=== PATIENT | female | born 1980 | race African-American/Black ===

== ENCOUNTER 2016-08-12 04:54 | Inpatient (IN) | payer MEDICAID ==
[2016-08-12] VITALS (12 sets, daily range): BP systolic 98–193; BP diastolic 52–81; PULSE 63–88; RESP 16–18; TEMP 97.8–98.8; O2SAT 97–100
[~2016-08-12] VITALS: Ht 160 cm; Wt 108.0 kg
[~2016-08-12 04:54] MED LIST: COUM10TA PO; LEVE250 PO; METH750T PO; PROBCAP4
[2016-08-12 05:18] LABS: MEAN CORPUSCULAR HGB CONC 29.3 % (32.0-36.0)
[2016-08-12] MEDS ORDERED: MORPHINE SULFATE 4 MG/ML INJ IV PUSH ONE (05:30)
[2016-08-12] MEDS ORDERED: KETOROLAC TROMETHAMINE 30 MG/ML (IVP) VIAL IV PUSH ONE (05:30)
[2016-08-12] MEDS ORDERED: SODIUM CHLOR 0.9% 1000 ML INJ 1,000 ML IV ONE (05:30)
[2016-08-12 05:44] LABS: AUTOMATED NEUTROPHIL # 19.5 TH/MM3 (1.8-7.7); BASOPHIL # 0.1 TH/MM3 (0-0.2); BASOPHIL % 0.7 % (0.0-2.0); EOSINOPHIL % 0.1 % (0.0-4.0); HEMATOCRIT 32.3 % (35.0-46.0); LYMPH % 2.7 % (9.0-44.0); LYMPHOCYTE # 0.6 TH/MM3 (1.0-4.8); MEAN CELL VOLUME 62.9 FL (80.0-100.0); MEAN CORPUSCULAR HEMOGLOBIN 18.4 PG (27.0-34.0); MONO % 3.5 % (0.0-8.0); PLATELET COUNT 544 TH/MM3 (150-450); RED BLOOD COUNT 5.14 MIL/MM3 (4.00-5.30); RED CELL DISTRIBUTION WIDTH 29.6 % (11.6-17.2); WHITE BLOOD COUNT 20.9 TH/MM3 (4.0-11.0)
[2016-08-12 05:48] LABS: HEMO FLAGS AUTO DIFF
[2016-08-12 05:51] LABS: BLOOD, URINE MOD (NEG); COMMENT (UR) CULT NOT INDICATED; CULTURE IF INDICATED CULT NOT INDICATED; GLUCOSE,URINE NEG (NEG); KETONE, URINE 10 mg/dL (NEG); MUCUS URINE FEW /lpf (OCC); NITRITE,URINE NEG (NEG); SQUAMOUS EPITHELIAL CELL URINE <1 /hpf (0-5); URINE COLOR YELLOW (YELLW/STRAW)
[2016-08-12 06:03] LABS: APTT (PATIENT) 57.6 SEC (24.3-30.1); INTERNATIONAL NORMALIZED RATIO 4.1 RATIO; PROTHROMBIN TIME - PATIENT 47.8 SEC (9.8-11.6)
[2016-08-12] MEDS ORDERED: IOHEXOL 300 MG/ML 50 ML BTL (for RAD DIAG) IV ONE (06:08)
[2016-08-12 06:14] LABS: BANDS 1 % (0-6); BASOPHILS 1 % (0-2); NEUTROPHIL # MANUAL DIFF 18.4 TH/MM3 (1.8-7.7); POLYS (SEG NEUTROPHILS) 87 % (16-70); SCAN/DIFF FINAL DIFF MANUAL; WBC DIFF SAMPLE 100
[2016-08-12 06:16] LABS: PLATELET ESTIMATE SMEAR HIGH (NORMAL); PLATELET MORPHOLOGY NORMAL (NORMAL)
--- NOTE | 2016-08-12 06:16 | PD ---
HPI Chief Complaint: Abdominal Pain Time Seen by Provider: 05:08 Travel History International Travel<30 days: No Contact w/Intl Traveler<30days: No Traveled to known affect area: No History of Present Illness HPI Patient is a 36-year-old female who comes in complaining of severe abdominal pain. She says she has been having cramps for the past 2 days in the car currently keeping her from sleep. She says she had a D and C performed early June, and since then she has had episodes of cramping, however this is the worst pain she has had. She reports nausea as well as vomiting. She denies fever or chills. She says she is having normal bowel movements. She denies any dysuria. She says the pain is all over her abdomen. She is currently starting her menstrual period. PFSH Past Medical History Hx Anticoagulant Therapy: Yes Anemia: Yes Blood Disorders: No Anxiety: Yes Depression: Yes Cancer: No Cardiovascular Problems: Yes Cerebrovascular Accident: Yes Diminished Hearing: No Endocrine: No Genitourinary: No Immune Disorder: No Musculoskeletal: No Neurologic: Yes (hx of stroke ) Psychiatric: Yes Reproductive: Yes (ABNORMAL INTRAUTERINE BLEEDING) Respiratory: No Immunizations Current: No Seizures: Yes ?: Not LMP: now : 1 Para: 1 Past Surgical History Section: Yes Gynecologic Surgery: Yes (d & c) Social History Alcohol Use: Yes Tobacco Use: Yes (1 ppd) Substance Use: Yes (MARIJUANA) Allergies-Medications (Allergen,Severity, Reaction): Coded Allergies: No Known Allergies (Unverified , 08/05/16) Reported Meds & Prescriptions Reported Meds & Active Scripts Active Reported Coumadin (Warfarin) 10 Mg Tab 10 Mg PO DAILY Methocarbamol 750 Mg Tab 750 Mg PO HS PRN Keppra (Levetiracetam) 250 Mg Tab 250 Mg PO TID Review of Systems Except as stated in HPI: all other systems reviewed are Neg General / Constitutional: No: Fever, Chills HENT: No: Headaches, Lightheadedness Cardiovascular: No: Chest Pain or Discomfort Respiratory: No: Shortness of Breath Gastrointestinal: Positive: Nausea, Vomiting, Abdominal Pain Genitourinary: Positive: Vaginal Bleeding, No: Dysuria, Flank Pain Musculoskeletal: No: Edema Skin: No Rash, No Change in Pigmentation Neurologic: No: Weakness, Dizziness Physical Exam Narrative GENERAL: Awake and alert in mild distress due to pain. SKIN: Warm and dry. HEAD: Atraumatic. Normocephalic. EYES: Pupils equal and round. No scleral icterus. ENT: Mucous membranes pink and moist. NECK: Trachea midline. No JVD. CARDIOVASCULAR: Regular rate and rhythm. No murmur appreciated. RESPIRATORY: No accessory muscle use. Clear to auscultation. Breath sounds equal bilaterally. GASTROINTESTINAL: Abdomen soft, nondistended. Tender to palpation of the upper abdomen. No rebound or guarding. MUSCULOSKELETAL: No obvious deformities. No clubbing. No cyanosis. No edema. NEUROLOGICAL: Awake and alert. No obvious cranial nerve deficits. Motor grossly within normal limits. Normal speech. PSYCHIATRIC: Appropriate mood and affect; insight and judgment normal. Data Data Last Documented VS Vital Signs Date Time Temp Pulse Resp B/P Pulse Ox O2 Delivery O2 Flow Rate FiO2 08/12/16 05:03 66 18 180/81 97 08/12/16 04:56 98.2 Room Air Orders Complete Blood Count With Diff (08/12/16 05:16) Comprehensive Metabolic Panel (08/12/16 05:16) Lipase (08/12/16 05:16) Urinalysis - C+S If Indicated (08/12/16 05:16) Ed Urine Pregnancytest Poc (08/12/16 05:16) Sodium Chlor 0.9% 1000 Ml Inj (Ns 1000 M (08/12/16 05:30) Ketorolac Inj (Toradol Inj) (08/12/16 05:30) Morphine Inj (Morphine Inj) (08/12/16 05:30) Ct Abd/Pel W Iv Contrast(Rout) (08/12/16 ) Act Partial Throm Time (Ptt) (08/12/16 05:27) Prothrombin Time / Inr (Pt) (08/12/16 05:27) Iohexol 300 Inj (Omnipaque 300 Inj) (08/12/16 06:08) Labs Laboratory Tests Test 08/12/16 08/12/16 05:15 05:25 White Blood Count 20.9 TH/MM3 Red Blood Count 5.14 MIL/MM3 Hemoglobin 9.5 GM/DL Hematocrit 32.3 % Mean Corpuscular Volume 62.9 FL Mean Corpuscular Hemoglobin 18.4 PG Mean Corpuscular Hemoglobin 29.3 % Concent Red Cell Distribution Width 29.6 % Platelet Count 544 TH/MM3 Mean Platelet Volume 8.8 FL Neutrophils (%) (Auto) 93.0 % Lymphocytes (%) (Auto) 2.7 % Monocytes (%) (Auto) 3.5 % Eosinophils (%) (Auto) 0.1 % Basophils (%) (Auto) 0.7 % Neutrophils # (Auto) 19.5 TH/MM3 Lymphocytes # (Auto) 0.6 TH/MM3 Monocytes # (Auto) 0.7 TH/MM3 Eosinophils # (Auto) 0.0 TH/MM3 Basophils # (Auto) 0.1 TH/MM3 CBC Comment AUTO DIFF Differential Total Cells 100 Counted Neutrophils % (Manual) 87 % Band Neutrophils % 1 % Lymphocytes % 6 % Monocytes % 5 % Basophils % 1 % Neutrophils # (Manual) 18.4 TH/MM3 Differential Comment FINAL DIFF MANUAL Platelet Estimate HIGH Platelet Morphology Comment NORMAL Spherocytes 1+ Ovalocytes 1+ Acanthocytes OCC Prothrombin Time 47.8 SEC Prothromb Time International 4.1 RATIO Ratio Activated Partial 57.6 SEC Thromboplast Time Sodium Level 139 MEQ/L Potassium Level 3.3 MEQ/L Chloride Level 104 MEQ/L Carbon Dioxide Level 22.6 MEQ/L Anion Gap 12 MEQ/L Blood Urea Nitrogen 6 MG/DL Creatinine 0.68 MG/DL Estimat Glomerular Filtration 117 ML/MIN Rate Random Glucose 109 MG/DL Calcium Level 9.3 MG/DL Total Bilirubin 0.4 MG/DL Aspartate Amino Transf 31 U/L (AST/SGOT) Alanine Aminotransferase 21 U/L (ALT/SGPT) Alkaline Phosphatase 82 U/L Total Protein 8.5 GM/DL Albumin 3.5 GM/DL Lipase 143 U/L Urine Color YELLOW Urine Turbidity CLEAR Urine pH 6.0 Urine Specific [place] 1.016 Urine Protein 30 mg/dL Urine Glucose (UA) NEG mg/dL Urine Ketones 10 mg/dL Urine Occult Blood MOD Urine Nitrite NEG Urine Bilirubin NEG Urine Urobilinogen LESS THAN 2.0 MG/DL Urine Leukocyte Esterase NEG Urine RBC 29 /hpf Urine WBC 3 /hpf Urine Squamous Epithelial <1 /hpf Cells Urine Mucus FEW /lpf Microscopic Urinalysis Comment CULT NOT INDICATED MDM Medical Decision Making Medical Screen Exam Complete: Yes Emergency Medical Condition: Yes Medical Record Reviewed: Yes Interpretation(s) ECG performed shows sinus rhythm at 60, no ST elevation or depression. Normal intervals. Differential Diagnosis Gastritis versus cholecystitis versus cholelithiasis versus uterine cramps versus fibroids Narrative Course Patient is a 36-year-old female comes in complaining of abdominal pain with nausea and vomiting. Exam shows tenderness especially to the upper part of the abdomen. IV established, labs sent. Patient has a white count of 20.9. INR is 4.1. Patient is on Coumadin for CVA. Patient given IV fluids, Toradol, morphine. CT of the abdomen and pelvis performed shows large pelvic mass with compression of the right ureter. There is right hydronephrosis present. There is also a retroperitoneal adenopathy present. Patient is feeling better, but continues to have some pain. With compression of the ureter causing hydronephrosis, I believe patient would benefit from inpatient admission. Patient admitted for further management. Diagnosis Primary Impression: Pelvic mass Additional Impression: Hydroureter Admitting Information Admitting Physician Requests: Admit Maria Esther Hernandez MD Aug 12, 2016 06:16
[2016-08-12 06:17] LABS: SPHEROCYTES 1+ (NORMAL)
[2016-08-12 06:18] LABS: ACANTHOCYTES OCC (NORMAL); OVALOCYTES 1+ (NORMAL)
[2016-08-12 06:19] LABS: ALKALINE PHOSPHATASE 82 U/L (45-117); ALT (GPT) 21 U/L (10-53); AST (GOT) 31 U/L (15-37); BLOOD UREA NITROGEN 6 MG/DL (7-18); GLOMERULAR FILTRATION RATE 117 ML/MIN (>89)
[2016-08-12 06:20] LABS: ANION GAP 12 MEQ/L (5-15); BICARBONATE 22.6 MEQ/L (21.0-32.0); CHLORIDE 104 MEQ/L (98-107); POTASSIUM 3.3 MEQ/L (3.5-5.1); SODIUM (NA) 139 MEQ/L (136-145); TOTAL BILIRUBIN ADULT 0.4 MG/DL (0.2-1.0)
--- NOTE | 2016-08-12 06:32 | RADRPT ---
EXAM DATE/TIME: 08/12/2016 05:51 [facility] COMPARISON: US PELVIS - COMPLETE (PEDIATRIC ANESTHESIOLOGIST,NON-PREG), July 10, 2015, 11:13. INDICATIONS : Abdomen and back pain since yesterday. IV CONTRAST: 95 cc Omnipaque 300 (iohexol) IV ORAL CONTRAST: No oral contrast ingested. RADIATION DOSE: 13.93 CTDIvol (mGy) MEDICAL HISTORY : Fibroids SURGICAL HISTORY : section. Endometrial ablation ENCOUNTER: Initial ACUITY: 1 day PAIN SCALE: 9/10 LOCATION: abdomen and back TECHNIQUE: Volumetric scanning of the abdomen and pelvis was performed. Using automated exposure control and ad justment of the mA and/or kV according to patient size, radiation dose was kept as low as reasonably achievable to obtain optimal diagnostic quality images. FINDINGS: LOWER LUNGS: The visualized lower lungs are clear. LIVER: Homogeneous density without lesion. There is no dilation of the biliary tree. No calcified gallston es. SPLEEN: Normal size without lesion. PANCREAS: Within normal limits. KIDNEYS: Normal in size and shape. There is mild right hydronephrosis with marked dilatation of the extrarenal collecting system. ADRENAL GLANDS: Within normal limits. VASCULAR: There is no aortic aneurysm. BOWEL/MESENTERY: The stomach, small bowel, and colon demonstrate no acute abnormality. There is no free intraperitone al air or fluid. ABDOMINAL WALL: Within normal limits. RETROPERITONEUM: Visible 7.1 x 4.4 cm mass along the right psoas muscle most consistent with retroperitoneal adenopath y is contiguous with the larger pelvic mass. BLADDER: No wall thickening or mass. REPRODUCTIVE: There is a large complex solid mass in the pelvis measuring up to 14.5 cm in greatest AP diameter by 21.9 cm in transverse diameter by 19 cm and is caudal cranial dimension. There are large ill-defined hypoechoic areas in her her several calcifications. Conclusion ringlike partial calcification on left lower portion of the mass. INGUINAL: There is no lymphadenopathy or hernia. MUSCULOSKELETAL: Within normal limits for patient age. CONCLUSION: 1. Large pelvic mass filling the majority of the pelvis and extending into the lower abdomen. Differe ntial diagnosis includes uterine tumors and possible ovarian masses. 2. Right retroperitoneal adenopathy. 3. Moderate right hydronephrosis. Jay Euceda MD on August 12, 2016 at 6:25 Board Certified Radiologist. This report was verified electronically.
[2016-08-12] MEDS ORDERED: MAGNESIUM HYDROXIDE SUSP 30 ML CUP PO PRN (07:30)
[2016-08-12] MEDS ORDERED: PROCHLORPERAZINE 25 MG SUPP PR PRN (07:30)
[2016-08-12] MEDS ORDERED: TEMAZEPAM 15 MG CAP PO PRN (07:30)
[2016-08-12] MEDS ORDERED: SENNOSIDES 8.6 MG TAB PO PRN (07:30)
[2016-08-12] MEDS ORDERED: ONDANSETRON HCL 4 MG/2 ML VIAL IVP PRN (07:30)
[2016-08-12] MEDS ORDERED: SODIUM CHLORIDE 0.9% FLUSH 5 ML FLUSH FLUSH PRN (07:30)
[2016-08-12] MEDS ORDERED: BISACODYL 10 MG SUPP PR PRN (07:30)
[2016-08-12] MEDS ORDERED: ACETAMINOPHEN 325 MG TAB PO PRN (07:30)
--- NOTE | 2016-08-12 07:32 | EKG ---
Date Performed: 08/12/2016 Time Performed: 05:07:11 PTAGE: 36 years EKG: Sinus rhythm NORMAL ECG PREVIOUS TRACING : 06/11/2016 12.53 No significant change from previous tracing noted. DOCTOR: Stephane Chew Interpretating Date/Time 08/12/2016 07:31:36
--- NOTE | 2016-08-12 07:35 | HHI.HP ---
[facility] oNva Guerra MD Admission Diagnosis hydronephrosis secondary to large pelvic mass Diagnoses: Chief Complaint: vaginal bleeding Travel History International Travel<30 Days: No Contact w/Intl Traveler <30 Da: No Traveled to Known Affected Are: No History of Present Illness Patient is a 36-year-old female with h/o CVA x2, seizures, Dysfunctional vaginal bleeding, anemia, who came to the ED complaining of severe abdominal pain. She says she has been having cramps for the past 2 days, currently keeping her from sleep. She says she had a D and C performed early June, and since then she has had episodes of cramping, however this is the worst pain she has had. She also has vaginal bleeding and change pads 6 times per day. Says she doesn't have abundant bleeding however. She reports nausea as well as vomiting. She denies fever or chills. She says she is having normal bowel movements. She denies any dysuria. She says the pain is all over her abdomen. She is currently starting her menstrual period. She does follow with directory compiler specialist as OP. She denies currently any nausea and vomiting. Review of Systems Endocrine: DENIES: Heat/cold intolerance Eyes: DENIES: Blurred vision, Eye pain Ears, nose, mouth, throat: DENIES: Tinnitus, Hearing loss, Vertigo, Nasal discharge, Oral lesions, Throat pain, Hoarseness, Ear Pain, Running Nose, Epistaxis, Sinus Pain, Toothache, Odynophagia Respiratory: DENIES: Apneas, Cough, Snoring, Wheezing, Hemoptysis, Sputum production, Shortness of breath Cardiovascular: DENIES: Chest pain, Palpitations, Syncope, Dyspnea on Exertion , PND, Lower Extremity Edema, Orthopnea, Claudication Gastrointestinal: COMPLAINS OF: Abdominal pain, Nausea, Vomiting, DENIES: Black stools, Bloody stools, Constipation, Diarrhea, Difficulty Swallowing, Anorexia Genitourinary: COMPLAINS OF: Abnormal vaginal bleeding, DENIES: Dysmenorrhea, Dyspareunia, Sexual dysfunction, Urinary frequency, Urinary incontinence, Urgency, Hematuria, Dysuria, Nocturia, Vaginal discharge Integumentary: DENIES: Rash Neurologic: DENIES: Abnormal gait, Headache, Localized weakness, Paresthesias, Seizures, Speech Problems, Tremor, Poor Balance Psychiatric: DENIES: Anxiety, Depression Past Family Social History Past Medical History Menorrhagia Seizure disorder Atrial fibrillation on Coumadin CVA Uterine fibroids Dysfunctional vaginal bleeding Anemia Past Surgical History Endometrial ablation and D&C on 06/25/16 Reported Medications Reported Meds & Active Scripts Active Reported Coumadin (Warfarin) 10 Mg Tab 10 Mg PO DAILY Methocarbamol 750 Mg Tab 750 Mg PO HS PRN Keppra (Levetiracetam) 250 Mg Tab 250 Mg PO TID Allergies: Coded Allergies: No Known Allergies (Unverified , 08/05/16) Family History Hypertension Social History Reports tobacco, marijuana, and occasional alcohol use. Physical Exam Vital Signs Vital Signs Date Time Temp Pulse Resp B/P Pulse Ox O2 Delivery O2 Flow Rate FiO2 08/12/16 07:03 63 16 131/60 99 Room Air 08/12/16 05:03 66 18 180/81 97 08/12/16 04:56 98.2 88 18 193/76 98 Room Air Physical Exam GENERAL: This is a well-nourished, well-developed patient, in no apparent distress. SKIN: No rashes, ecchymoses or lesions. Cool and dry. HEAD: Atraumatic. Normocephalic. No temporal or scalp tenderness. EYES: Pupils equal round and reactive. Extraocular motions intact. No scleral icterus. No injection or drainage. ENT: Nose without bleeding, purulent drainage or septal hematoma. Throat without erythema, tonsillar hypertrophy or exudate. Uvula midline. Airway patent. NECK: Trachea midline. No JVD or lymphadenopathy. Supple, nontender, no meningeal signs. CARDIOVASCULAR: Regular rate and rhythm without murmurs, gallops, or rubs. RESPIRATORY: Clear to auscultation. Breath sounds equal bilaterally. No wheezes , rales, or rhonchi. GASTROINTESTINAL: Abdomen soft, distended, diffuse tenderness, large mass palpable. No hepato-splenomegaly. No guarding. MUSCULOSKELETAL: Extremities without clubbing, cyanosis, or edema. No joint tenderness, effusion, or edema noted. No calf tenderness. Negative Homans sign bilaterally. NEUROLOGICAL: Awake and alert. Cranial nerves II through XII intact. Motor and sensory grossly within normal limits. Five out of 5 muscle strength in all muscle groups. Normal speech. Laboratory Laboratory Tests Test 08/12/16 08/12/16 05:15 05:25 White Blood Count 20.9 Red Blood Count 5.14 Hemoglobin 9.5 Hematocrit 32.3 Mean Corpuscular Volume 62.9 Mean Corpuscular Hemoglobin 18.4 Mean Corpuscular Hemoglobin 29.3 Concent Red Cell Distribution Width 29.6 Platelet Count 544 Mean Platelet Volume 8.8 Neutrophils (%) (Auto) 93.0 Lymphocytes (%) (Auto) 2.7 Monocytes (%) (Auto) 3.5 Eosinophils (%) (Auto) 0.1 Basophils (%) (Auto) 0.7 Neutrophils # (Auto) 19.5 Lymphocytes # (Auto) 0.6 Monocytes # (Auto) 0.7 Eosinophils # (Auto) 0.0 Basophils # (Auto) 0.1 CBC Comment AUTO DIFF Differential Total Cells 100 Counted Neutrophils % (Manual) 87 Band Neutrophils % 1 Lymphocytes % 6 Monocytes % 5 Basophils % 1 Neutrophils # (Manual) 18.4 Differential Comment FINAL DIFF MANUAL Platelet Estimate HIGH Platelet Morphology Comment NORMAL Spherocytes 1+ Ovalocytes 1+ Acanthocytes OCC Prothrombin Time 47.8 Prothromb Time International 4.1 Ratio Activated Partial 57.6 Thromboplast Time Sodium Level 139 Potassium Level 3.3 Chloride Level 104 Carbon Dioxide Level 22.6 Anion Gap 12 Blood Urea Nitrogen 6 Creatinine 0.68 Estimat Glomerular Filtration 117 Rate Random Glucose 109 Calcium Level 9.3 Total Bilirubin 0.4 Aspartate Amino Transf 31 (AST/SGOT) Alanine Aminotransferase 21 (ALT/SGPT) Alkaline Phosphatase 82 Total Protein 8.5 Albumin 3.5 Lipase 143 Urine Color YELLOW Urine Turbidity CLEAR Urine pH 6.0 Urine Specific [place] 1.016 Urine Protein 30 Urine Glucose (UA) NEG Urine Ketones 10 Urine Occult Blood MOD Urine Nitrite NEG Urine Bilirubin NEG Urine Urobilinogen LESS THAN 2.0 Urine Leukocyte Esterase NEG Urine RBC 29 Urine WBC 3 Urine Squamous Epithelial <1 Cells Urine Mucus FEW Microscopic Urinalysis Comment CULT NOT INDICATED Result Diagram: 08/12/16 0515 08/12/16 0515 Imaging Last Impressions Abdomen/Pelvis CT 08/12/16 0000 Signed Impressions: Service Date/Time: Friday, August 12, 2016 05:51 - CONCLUSION: 1. Large pelvic mass filling the majority of the pelvis and extending into the lower abdomen. Differential diagnosis includes uterine tumors and possible ovarian masses. 2. Right retroperitoneal adenopathy. 3. Moderate right hydronephrosis. Jay Euceda MD Assessment and Plan Assessment and Plan 36-year-old woman with: Abdominal pain. Nausea and vomiting. CT abd/pelvis reviewed, findings discussed with ED physician. 1. Large pelvic mass filling the majority of the pelvis and extending into the lower abdomen. Differential diagnosis includes uterine tumors and possible ovarian masses. 2. Right retroperitoneal adenopathy. 3. Moderate right hydronephrosis. Consult directory compiler and urology. Pain meds per pain scale. Start dicyclomine as need. IVF Keep NPO for now Antiemetics as need Hydronephrosis. Poss 2/2 mechanical obstruction by large pelvic mass. Urology consulted. Anemia of blood loss: monitor H&H, appears at baseline. Check iron panel. DUB/Menorrhagia/fibroids: s/p endometrial ablation and D&C on 06/25/16; Receives Depo-Provera; gynecology was consulted Atrial fibrillation: Hold Coumadin as INR is supraterapeutic at this time. Patient has history of CVA. Monitor INR/PT Supraterapeutic INR of 4.1 on admission. Hold coumadin. Hypokalemia. Check mag . Replace and monitor. Seizure disorder: Resume Keppra. DVT prophylaxis: SCDs/TEDs. Discussed Condition With ED physician, nurse, patient Marycruz Ba MD Aug 12, 2016 07:35
[2016-08-12] MEDS ORDERED: NALOXONE HCL 0.4 MG/ML AMP IV PRN (07:45)
[2016-08-12] MEDS ORDERED: HYDROmorphone HCL PF 1 MG/ML VIAL IV PRN ×2 (07:45)
[2016-08-12] MEDS ORDERED: DICYCLOMINE HCL 20 MG/2 ML VIAL IM ONE (08:00)
[2016-08-12] MEDS ORDERED: METHOCARBAMOL 500 MG TAB PO PRN (08:00)
[2016-08-12] MEDS: POTASSIUM CHLOR 20 MEQ PREMIX 100 ML IV SCH ×2 (08:42→10:21)
[2016-08-12] MEDS: SODIUM CHLOR 0.9% 1000 ML INJ 1,000 ML IV SCH ×2 (08:42→16:51)
[2016-08-12] MEDS: SODIUM CHLORIDE 0.9% FLUSH 5 ML FLUSH FLUSH SCH ×2 (09:00→21:00)
[2016-08-12] MEDS: levETIRAcetam 250 MG TAB PO SCH ×3 (09:20→21:43)
[2016-08-12 10:20] LABS: FERRITIN 17 NG/ML (8-252)
[2016-08-12 11:57] LABS: TRANSFERRIN IRON PROFILE 297 MG/DL (200-360)
--- NOTE | 2016-08-12 12:23 | PD.CONS ---
HPI Chief Complaint Pelivic Mass, abdominal pain, menorrhagia Date Seen: Aug 12, 2016 Travel History International Travel<30 Days: No Contact w/Intl Traveler<30Days: No Known Affected Area: No History of Present Illness HPI Pt is a 37 year old with history of uterine fibroids, CVA x2, seizure disorder presenting due to abdominal pain, heavy menstrual bleeding found to have a large pelvic mass on CT and supratheraputic INR of 4.1. Pt reports that she had a fibroid removed in 2002 that was substantial in size. She was told that she had another fibroid in 2010. She had two strokes in 2013 and has been on Coumadin 10 mg daily. Her INRs are monitored by Dr. Tafoya, [facility]. She had an ablation and D & C on June 28, [address] Bliss in [place]. She was seen by her [facility], Dr. Bliss, in March and reports being told that she needs to have an hysterectomy and was referred to an OBGYN in [place] for surgery. She was unable to find a doctor to perform the hysterectomy due to insurance restrictions. She has had irregular vaginal bleeding/spotting since February. She is not interested in having any more children and is interested in having her hysterectomy. Para: 1 : 1 Miscarriage: 0 : 0 History Past Medical History Narrative Medical CVA x2 Seizure disorder Patient denies history of coagulopathy or hemoglobinopathy Anemia, hemoglobin usually around 7 per pt Obstetric History Obstetric History No history of miscarriages or abortions Menarche at age 7, periods occur every 7 days and will last for 7 days No history of abnormal Pap smears, last pap smear was in 2014, normal per pt Past Surgical History Narrative Surgical 1 in 2002 Family History Narrative Family History Pt denies family history of breast cancer, uterine cancer, ovarian cancer, cervical cancer, bleeding disorder Social History Alcohol Use: Yes (2 glasses of wine weekly) Tobacco Use: Yes (5 cigarettes per day, patient currently trying to quit smoking) Substance Abuse: No (5 cigs per day, pt trying to quit smoking) Allergies-Medications (Allergen,Severity, Reaction): Coded Allergies: No Known Allergies (Unverified , 08/05/16) Home Meds Reported Medications Warfarin (Coumadin)10 Mg Tab10 Mg PO DAILY #30 TAB Ref 0 07/04/16 Methocarbamol 750 Mg [id number] Mg PO HS PRN (Muscle Spasm) #120 TAB Ref 0 07/04/16 Levetiracetam (Keppra)250 Mg [id number] Mg PO TID #60 TAB Ref 0 07/04/16 Discontinued Reported Medications Probiotic Product (Probiotic Acidophilus)1 Cap Cap 07/04/16 Review of Systems General / Constitutional: Weight Loss HENT: No: Lightheadedness Respiratory: No: Short of Breath Gastrointestinal: Abdominal Pain Genitourinary: Pelvic Pain, Menorrhagia, Vaginal Bleeding Musculoskeletal: No: Edema Neurologic: No: Dizziness Physical Exam Narrative GENERAL: Well-nourished, well-developed patient. SKIN: Warm and dry. HEAD: Normocephalic and atraumatic. EYES: No scleral icterus. No injection or drainage. ENT: No nasal drainage noted. Mucous membranes pink. Airway patent. NECK: Supple, trachea midline. No JVD. CARDIOVASCULAR: Warm and well perfused RESPIRATORY: Non labored breathing. No accessory muscle use. ABDOMEN/GI: Large abdominal mass appreciated GENITOURINARY: Bimanual exam: Unable to appreciate ovaries,significantly enlarged uterus External Genitalia: intact and normal in appearance Cervix: midposition, posterior Dilatation: fingertip Small subserosal polyp, anout 1cm x1cm of the left posterior vaginal wall EXTREMITIES: No cyanosis or edema. BACK: Nontender without obvious deformity. No CVA tenderness. NEUROLOGICAL: Awake and alert. Motor and sensory grossly within normal limits. Five out of 5 muscle strength in all muscle groups. Normal speech. Data Data Vital Signs Reviewed: Yes Orders Complete Blood Count With Diff (08/12/16 05:16) Comprehensive Metabolic Panel (08/12/16 05:16) Lipase (08/12/16 05:16) Urinalysis - C+S If Indicated (08/12/16 05:16) Ed Urine Pregnancytest Poc (08/12/16 05:16) Sodium Chlor 0.9% 1000 Ml Inj (Ns 1000 M (08/12/16 05:30) Ketorolac Inj (Toradol Inj) (08/12/16 05:30) Morphine Inj (Morphine Inj) (08/12/16 05:30) Ct Abd/Pel W Iv Contrast(Rout) (08/12/16 ) Act Partial Throm Time (Ptt) (08/12/16 05:27) Prothrombin Time / Inr (Pt) (08/12/16 05:27) Iohexol 300 Inj (Omnipaque 300 Inj) (08/12/16 06:08) Electrocardiogram (08/12/16 05:07) Admit Order (Ed Use Only) (08/12/16 ) Place In Observation (08/12/16 ) Code Status (08/12/16 07:21) Vital Signs (Adult) Q4H (08/12/16 07:21) Activity Oob With Assistance (08/12/16 07:21) ^ Twine Reeling Machine Operator / Telemetry .CONTINUOUS (08/12/16 07:21) Sodium Chlor 0.9% 1000 Ml Inj (Ns 1000 M (08/12/16 08:00) Sodium Chloride 0.9% Flush (Ns Flush) (08/12/16 07:30) Sodium Chloride 0.9% Flush (Ns Flush) (08/12/16 09:00) Acetaminophen (Tylenol) (08/12/16 07:30) Ondansetron Inj (Zofran Inj) (08/12/16 07:30) Prochlorperazine Supp (Compazine Supp) (08/12/16 07:30) Bisacodyl Supp (Dulcolax Supp) (08/12/16 07:30) Magnesium Hydroxide Liq (Milk Of Magnesi (08/12/16 07:30) Sennosides (Senokot) (08/12/16 07:30) Temazepam (Restoril) (08/12/16 07:30) Basic Metabolic Panel (Bmp) (08/13/16 06:00) Complete Blood Count With Diff (08/13/16 06:00) Resp Oxygen [place] C Titrat 1-4 L (08/12/16 ) Pt Request For Service (08/12/16 07:21) Case Management Consult (08/12/16 07:21) Scd Bilateral/Knee High DEDRA.BID (08/12/16 07:21) Bob Bilateral/Knee High DEDRA.QSHIFT (08/12/16 07:21) Consult Urology (08/12/16 ) Consult Gynecology (08/12/16 ) (Hub Use Only)Inp Phy Cons/Ref (08/12/16 ) Acetamin-Hydrocod 325-5 Mg ([place] 5-325 (08/12/16 07:45) Acetamin-Hydrocod 325-10 Mg ([place] 10-32 (08/12/16 07:45) Hydromorphone Pf Inj (Dilaudid Pf Inj) (08/12/16 07:45) Hydromorphone Pf Inj (Dilaudid Pf Inj) (08/12/16 07:45) Hydromorphone Pf Inj (Dilaudid Pf Inj) (08/12/16 07:45) Naloxone Inj (Narcan Inj) (08/12/16 07:45) Levetiracetam (Keppra) (08/12/16 08:00) Diet Npo Except Meds (08/12/16 Breakfast) Methocarbamol (Robaxin) (08/12/16 08:00) Dicyclomine Inj (Bentyl Inj) (08/12/16 08:00) Magnesium (Mg) (08/13/16 06:00) Prothrombin Time / Inr (Pt) (08/13/16 06:00) Prothrombin Time / Inr (Pt) (08/14/16 06:00) Prothrombin Time / Inr (Pt) (08/15/16 06:00) Prothrombin Time / Inr (Pt) (08/16/16 06:00) Prothrombin Time / Inr (Pt) (08/17/16 06:00) Potassium Chlor 20 Meq Premix (Kcl 20 Me (08/12/16 08:00) Iron/Tibc Profile (08/12/16 07:54) Ferritin (08/12/16 07:54) Vitamin B12 (08/12/16 07:54) Folate, Serum (08/12/16 07:54) Dicyclomine (Bentyl) (08/12/16 09:00) (Hub Use Only)Inp Phy Cons/Ref (08/12/16 ) Labs Laboratory Tests Test 08/12/16 08/12/16 05:15 05:25 White Blood Count 20.9 Red Blood Count 5.14 Hemoglobin 9.5 Hematocrit 32.3 Mean Corpuscular Volume 62.9 Mean Corpuscular Hemoglobin 18.4 Mean Corpuscular Hemoglobin 29.3 Concent Red Cell Distribution Width 29.6 Platelet Count 544 Mean Platelet Volume 8.8 Neutrophils (%) (Auto) 93.0 Lymphocytes (%) (Auto) 2.7 Monocytes (%) (Auto) 3.5 Eosinophils (%) (Auto) 0.1 Basophils (%) (Auto) 0.7 Neutrophils # (Auto) 19.5 Lymphocytes # (Auto) 0.6 Monocytes # (Auto) 0.7 Eosinophils # (Auto) 0.0 Basophils # (Auto) 0.1 CBC Comment AUTO DIFF Differential Total Cells 100 Counted Neutrophils % (Manual) 87 Band Neutrophils % 1 Lymphocytes % 6 Monocytes % 5 Basophils % 1 Neutrophils # (Manual) 18.4 Differential Comment FINAL DIFF MANUAL Platelet Estimate HIGH Platelet Morphology Comment NORMAL Spherocytes 1+ Ovalocytes 1+ Acanthocytes OCC Prothrombin Time 47.8 Prothromb Time International 4.1 Ratio Activated Partial 57.6 Thromboplast Time Sodium Level 139 Potassium Level 3.3 Chloride Level 104 Carbon Dioxide Level 22.6 Anion Gap 12 Blood Urea Nitrogen 6 Creatinine 0.68 Estimat Glomerular Filtration 117 Rate Random Glucose 109 Calcium Level 9.3 Iron Level 15 Total Iron Binding Capacity 416 Percent Iron Saturation 3.6 Ferritin 17 Total Bilirubin 0.4 Aspartate Amino Transf 31 (AST/SGOT) Alanine Aminotransferase 21 (ALT/SGPT) Alkaline Phosphatase 82 Total Protein 8.5 Albumin 3.5 Lipase 143 Folate 9.1 Urine Color YELLOW Urine Turbidity CLEAR Urine pH 6.0 Urine Specific [place] 1.016 Urine Protein 30 Urine Glucose (UA) NEG Urine Ketones 10 Urine Occult Blood MOD Urine Nitrite NEG Urine Bilirubin NEG Urine Urobilinogen LESS THAN 2.0 Urine Leukocyte Esterase NEG Urine RBC 29 Urine WBC 3 Urine Squamous Epithelial <1 Cells Urine Mucus FEW Microscopic Urinalysis Comment CULT NOT INDICATED MDM Medical Record Reviewed: Yes Interpretation(s) Pt is a 37 year old with history of uterine fibroids, CVA x2, seizure disorder presenting due to abdominal pain, heavy menstrual bleeding found to have a large pelvic mass on CT and supratheraputic INR of 4.1. Plan 1) Pelvic mass/uterine leiomyoma CT of the abdomen/pelvis significant for large pelvic mass filling the majority of the pelvis and extending into the lower abdomen measuring 21 cm x 14 cm likely uterine leiomyoma. She has failed medical management to control irregular vaginal bleeding caused by fibroid with Depo-Provera as well as ablation/D&C. Pt with minimal vaginal bleeding at this time. It would be ideal for patient to have a hysterectomy. There are currently several barriers preventing pt from having a hysterectomy performed: Supratherapeutic INR, patient not medically stable for surgery, finding a DEICER TESTER surgeon who would accept patient's insurance and would also perform high risk surgery. These barriers were discussed with Dr. Ba. Case management has also been consulted to assist. CA125 within normal limits CEA 19-9 slightly elevated to 43.4, likely due to presence of large pelvic mass 2) Menorrhagia Resolving. Pt currently with minimal vaginal bleeding/spotting. Consider additional dose of Depo-Provera if bleeding resumes/worsens 3) Hydronephrosis Urology has been consulted by primary team for possible stent placement Further management by Urology 4) Anemia Hemoglobin 9.5, patient asymptomatic Continue to monitor H&H Management per primary team 5) Supratherapeutic INR On admission INR elevated to 4.1. Patient reports being on Coumadin 10 mg by mouth daily due to having CVA 2. Coumadin currently held Management per primary team 6) Seizure disorder Keppra 250 mg by mouth every 8 hours Pt seen and discussed with [facility] Hospitalist: Dr. Lewis, also sdw Dr. Matute Case discussed with Will sign off at this time. Please reconsult once pt is medically stable to evaluate pt for possible hysterectomy. Admitting diagnosis: hydronephrosis secondary to large pelvic mass Cynthia Arguelles MD R2 Aug 12, 2016 12:22
[2016-08-12] MEDS: DICYCLOMINE HCL 20 MG TAB PO PRN (14:37)
--- NOTE | 2016-08-12 15:31 | PD.CONS ---
History & Physical H&P This patient is a 37-year-old black female para 1 with known history of fibroids. She presents with abdominal pain increasing over the last 2 days. She also has irregular uterine bleeding that's fairly minimal. She has a known history of fibroid uterus and her OB GEN doctor is Dr. Bennett in [place]. This DRILLING FIELD OPERATOR doctor did a D&C earlier this year for bleeding and pain and placed the patient on Depo-Provera. Today she presents to the emergency room and evaluation shows a massive pelvic abdominal mass that basically fills the pelvis and abdomen well above the umbilicus the mass goes from sidewall to sidewall laterally and goes to approximately 10-12 cm above the umbilicus it's palpable firm hard mass. Measurement on CT scan was 22 cm in side to side width. There is hydronephrosis on the right with dilated calyces and hydroureter. While Getting factors for this patient however is that her history of 2 CVAs and is over anticoagulated now on Coumadin with an INR of 4 and obviously this can lead to irregular and heavy bleeding at times. Her doctor in [place] try to get her to [facility] to get someone to do a hysterectomy. However the clinic would not do the procedure because of her they did not take her insurance. She is being admitted to medicine now and will have a urology consultation for possible stent placement to preserve the right kidney, and yes this patient does need a hysterectomy obviously but is getting of the right surgeon to do that if her insurance is a problem or is just too medically complicated for her to have this done here. So at this point recommend that she gets her INR decreased her Coumadin therapy regulated so it's a proper amount of anticoagulation and if gynecologic surgical intervention can be scheduled with his hospitalization and that would be good , however will be investigated with the DRILLING FIELD OPERATOR doctor as well as her medical clearance for surgery Filippo Lewis II, MD Aug 12, 2016 15:31
--- NOTE | 2016-08-12 18:06 | PD.CONS ---
[facility] Service Urology Consult Requested By Dr. Ba Reason for Consult Hydronephrosis, Right. Huge Uterine fibroids. Coumadin supertherapy. Primary Care Physician Nova Guerra MD Diagnosis: (1) Hydronephrosis of right kidney ICD Code: N13.30 History of Present Illness Silent Rt. hydronephrosis caused by extrinsic compression by a huge uterine fibroid. Crocker seen on CT scan. Left kidney and ureter: WNL. No renal colic. Patient waiting for a hysterectomy. Has been seen by Dr. Lewis (Hydraulic Governor Assembler). INR: 4.1 on admission. Hx. CVAs. Cr: WNL. UA: RBC, no WBC. Past Family Social History Past Medical History EMR reviewed. Past Surgical History EMR reviewed. Allergies: Coded Allergies: No Known Allergies (Unverified , 08/05/16) Physical Exam Vital Signs Vital Signs Date Time Temp Pulse Resp B/P Pulse Ox O2 Delivery O2 Flow Rate FiO2 08/12/16 16:42 98.8 80 18 116/59 99 08/12/16 16:37 74 08/12/16 13:09 98.7 65 18 124/63 100 08/12/16 12:10 66 16 124/76 100 08/12/16 09:23 63 18 151/65 99 Room Air 08/12/16 07:03 63 16 131/60 99 Room Air 08/12/16 05:03 66 18 180/81 97 08/12/16 04:56 98.2 88 18 193/76 98 Room Air Physical Exam GENERAL: This is a well-nourished, well-developed patient, in no apparent distress. SKIN: No rashes, ecchymoses or lesions. Cool and dry. HEAD: Atraumatic. Normocephalic. No temporal or scalp tenderness. EYES: Pupils equal round and reactive. Extraocular motions intact. No scleral icterus. No injection or drainage. ENT: Nose without bleeding, purulent drainage or septal hematoma. Throat without erythema, tonsillar hypertrophy or exudate. Uvula midline. Airway patent. NECK: Trachea midline. No JVD or lymphadenopathy. Supple, nontender, no meningeal signs. CARDIOVASCULAR: Regular rate and rhythm without murmurs, gallops, or rubs. RESPIRATORY: Clear to auscultation. Breath sounds equal bilaterally. No wheezes , rales, or rhonchi. GASTROINTESTINAL: Abdomen soft, non-tender, nondistended. No hepato-splenomegaly , or palpable masses. No guarding. MUSCULOSKELETAL: Extremities without clubbing, cyanosis, or edema. No joint tenderness, effusion, or edema noted. No calf tenderness. Negative Homans sign bilaterally. NEUROLOGICAL: Awake and alert. Cranial nerves II through XII intact. Motor and sensory grossly within normal limits. Five out of 5 muscle strength in all muscle groups. Normal speech. : Abd: Large, firm mass above umbilicus. ( Hydraulic Governor Assembler PE reviewed.). Laboratory Laboratory Tests Test 08/12/16 08/12/16 08/12/16 05:15 05:25 15:30 White Blood Count 20.9 Red Blood Count 5.14 Hemoglobin 9.5 Hematocrit 32.3 Mean Corpuscular Volume 62.9 Mean Corpuscular Hemoglobin 18.4 Mean Corpuscular Hemoglobin 29.3 Concent Red Cell Distribution Width 29.6 Platelet Count 544 Mean Platelet Volume 8.8 Neutrophils (%) (Auto) 93.0 Lymphocytes (%) (Auto) 2.7 Monocytes (%) (Auto) 3.5 Eosinophils (%) (Auto) 0.1 Basophils (%) (Auto) 0.7 Neutrophils # (Auto) 19.5 Lymphocytes # (Auto) 0.6 Monocytes # (Auto) 0.7 Eosinophils # (Auto) 0.0 Basophils # (Auto) 0.1 CBC Comment AUTO DIFF Differential Total Cells 100 Counted Neutrophils % (Manual) 87 Band Neutrophils % 1 Lymphocytes % 6 Monocytes % 5 Basophils % 1 Neutrophils # (Manual) 18.4 Differential Comment FINAL DIFF MANUAL Platelet Estimate HIGH Platelet Morphology Comment NORMAL Spherocytes 1+ Ovalocytes 1+ Acanthocytes OCC Prothrombin Time 47.8 Prothromb Time International 4.1 Ratio Activated Partial 57.6 Thromboplast Time Sodium Level 139 Potassium Level 3.3 Chloride Level 104 Carbon Dioxide Level 22.6 Anion Gap 12 Blood Urea Nitrogen 6 Creatinine 0.68 Estimat Glomerular Filtration 117 Rate Random Glucose 109 Calcium Level 9.3 Iron Level 15 Total Iron Binding Capacity 416 Percent Iron Saturation 3.6 Ferritin 17 Total Bilirubin 0.4 Aspartate Amino Transf 31 (AST/SGOT) Alanine Aminotransferase 21 (ALT/SGPT) Alkaline Phosphatase 82 Total Protein 8.5 Albumin 3.5 Lipase 143 Folate 9.1 Urine Color YELLOW Urine Turbidity CLEAR Urine pH 6.0 Urine Specific [place] 1.016 Urine Protein 30 Urine Glucose (UA) NEG Urine Ketones 10 Urine Occult Blood MOD Urine Nitrite NEG Urine Bilirubin NEG Urine Urobilinogen LESS THAN 2.0 Urine Leukocyte Esterase NEG Urine RBC 29 Urine WBC 3 Urine Squamous Epithelial <1 Cells Urine Mucus FEW Microscopic Urinalysis Comment CULT NOT INDICATED CA 19-9 Antigen 43.4 CA 125 Antigen 8.4 Result Diagram: 08/12/1651408/12/[address] scan images reviewed. See HPI. Assessment and Plan Problem List: (1) Hydronephrosis of right kidney ICD Code: N13.30 Status: Chronic Assessment and Plan: Hydronephrosis is chronic, painless. Total kidney function: WNL. No sign of UTI. Coumadin supertherapy. Assessment and Plan REC: Whether to place a urinary stent during this hospital stay or at a later date will depend on when patient is to have her hysterectomy. If hysterectomy can be done in next 2-3 weeks, then stent placement can be delayed. However, if hysterectomy will be later than one month, then stent placement should be considered. Discussed Condition With Patient, nurse. Tariq Flores MD Aug 12, 2016 18:06
[2016-08-12] MEDS: ACETAMINOPHEN/HYDROcodone 325 MG/5 MG TAB PO PRN (19:39)
[2016-08-12 21:01] LABS: MEAN CORPUSCULAR HGB CONC 28.6 % (32.0-36.0)
[2016-08-13] MEDS: DICYCLOMINE HCL 20 MG TAB PO PRN (02:37)
[2016-08-13] MEDS: SODIUM CHLOR 0.9% 1000 ML INJ 1,000 ML IV SCH ×2 (02:38→14:08)
[2016-08-13 04:27] VITALS: BP 113/60; PULSE 74; RESP 18; TEMP 98; O2SAT 100
[2016-08-13] MEDS: levETIRAcetam 250 MG TAB PO SCH ×3 (06:04→22:17)
[2016-08-13 06:58] LABS: INTERNATIONAL NORMALIZED RATIO 3.2 RATIO
[2016-08-13 07:08] LABS: AUTOMATED NEUTROPHIL # 9.4 TH/MM3 (1.8-7.7); BASOPHIL # 0.1 TH/MM3 (0-0.2); BASOPHIL % 0.5 % (0.0-2.0); EOSINOPHIL # 0.1 TH/MM3 (0-0.4); HEMATOCRIT 27.5 % (35.0-46.0); LYMPH % 10.9 % (9.0-44.0); LYMPHOCYTE # 1.3 TH/MM3 (1.0-4.8); MEAN CELL VOLUME 62.8 FL (80.0-100.0); MONO % 6.9 % (0.0-8.0); NEUT % 80.7 % (16.0-70.0); PLATELET COUNT 436 TH/MM3 (150-450); RED BLOOD COUNT 4.38 MIL/MM3 (4.00-5.30); RED CELL DISTRIBUTION WIDTH 29.3 % (11.6-17.2); WHITE BLOOD COUNT 11.7 TH/MM3 (4.0-11.0)
[2016-08-13 07:17] LABS: MAGNESIUM 1.9 MG/DL (1.5-2.5); POTASSIUM 3.4 MEQ/L (3.5-5.1)
[2016-08-13 07:35] LABS: HEMO FLAGS AUTO DIFF
--- NOTE | 2016-08-13 07:46 | HHI.PR ---
Subjective Remarks Says she has more vaginal bleeding since yesterday. Has abdominal pain, controlled by meds. 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 No n/v/d/c. INR trending down. Objective Vitals Vital Signs Date Time Temp Pulse Resp B/P Pulse Ox O2 Delivery O2 Flow Rate FiO2 08/13/16 04:27 98.0 74 18 113/60 100 08/12/16 23:49 97.8 74 18 98/55 97 08/12/16 20:19 16 08/12/16 20:14 98.7 87 18 114/52 100 08/12/16 20:10 85 08/12/16 16:42 98.8 80 18 116/59 99 08/12/16 16:37 74 08/12/16 13:09 98.7 65 18 124/63 100 08/12/16 12:10 66 16 124/76 100 08/12/16 10:30 99 21 08/12/16 09:23 63 18 151/65 99 Room Air Result Diagram: 08/13/16 0554 08/13/16 0554 Imaging Last Impressions Abdomen/Pelvis CT 08/12/16 0000 Signed Impressions: Service Date/Time: Friday, August 12, 2016 05:51 - CONCLUSION: 1. Large pelvic mass filling the majority of the pelvis and extending into the lower abdomen. Differential diagnosis includes uterine tumors and possible ovarian masses. 2. Right retroperitoneal adenopathy. 3. Moderate right hydronephrosis. Jay Euceda MD Objective Remarks GENERAL: This is a well-nourished, well-developed patient, in no apparent distress. SKIN: No rashes, ecchymoses or lesions. Cool and dry. HEAD: Atraumatic. Normocephalic. No temporal or scalp tenderness. EYES: Pupils equal round and reactive. Extraocular motions intact. No scleral icterus. No injection or drainage. ENT: Nose without bleeding, purulent drainage or septal hematoma. Throat without erythema, tonsillar hypertrophy or exudate. Uvula midline. Airway patent. NECK: Trachea midline. No JVD or lymphadenopathy. Supple, nontender, no meningeal signs. CARDIOVASCULAR: Regular rate and rhythm without murmurs, gallops, or rubs. RESPIRATORY: Clear to auscultation. Breath sounds equal bilaterally. No wheezes , rales, or rhonchi. GASTROINTESTINAL: Abdomen soft, distended, diffuse tenderness, large mass palpable. No hepato-splenomegaly. No guarding. MUSCULOSKELETAL: Extremities without clubbing, cyanosis, or edema. No joint tenderness, effusion, or edema noted. No calf tenderness. Negative Homans sign bilaterally. NEUROLOGICAL: Awake and alert. Cranial nerves II through XII intact. Motor and sensory grossly within normal limits. Five out of 5 muscle strength in all muscle groups. Normal speech. A/P Problem List: (1) Hydronephrosis of right kidney ICD Code: N13.30 Status: Chronic Assessment and Plan 36-year-old woman with: Abdominal pain. Nausea and vomiting. Large pelvic mass CT abd/pelvis reviewed, findings discussed with ED physician. 1. Large pelvic mass filling the majority of the pelvis and extending into the lower abdomen. Differential diagnosis includes uterine tumors and possible ovarian masses. 2. Right retroperitoneal adenopathy. 3. Moderate right hydronephrosis. Consult restaurant worker and urology. Pain meds per pain scale. Start dicyclomine as need. IVF Tolerated diet Antiemetics as need Per Playground Aide patient needs surgery , case management to help find a physician who takes patient insurance. Per urology if plan for surgery within a month patient doesn't need a stent placed, however if surgery is postponed for > 1 month patient needs stent placed. Discussed wit the patient. Hydronephrosis. Poss 2/2 mechanical obstruction by large pelvic mass. Urology consulted. Per urology if plan for surgery within a month patient doesn't need a stent placed, however if surgery is postponed for > 1 month patient needs stent placed. Anemia of blood loss: monitor H&H, appears at baseline. Check iron panel. DUB/Menorrhagia/fibroids: s/p endometrial ablation and D&C on 06/25/16; Receives Depo-Provera; gynecology was consulted Atrial fibrillation: Hold Coumadin as INR is supraterapeutic at this time. Patient has history of CVA. Monitor INR/PT Supraterapeutic INR of 4.1 on admission. Hold coumadin. Hypokalemia. Check mag . Replace and monitor. Seizure disorder: Resume Keppra. DVT prophylaxis: SCDs/TEDs. Discussed Condition With nurse, patient Marycruz Ba MD Aug 13, 2016 07:46
[2016-08-13 08:00] VITALS: PULSE 86
[2016-08-13 08:14] LABS: OVALOCYTES 1+ (NORMAL); PLATELET ESTIMATE SMEAR HIGH (NORMAL); PLATELET MORPHOLOGY NORMAL (NORMAL); SCAN/DIFF AUTO DIFF CONFIRMED
[2016-08-13 08:15] LABS: KERATOCYTES OCC (NORMAL); TEARDROP RBCS 1+ (NORMAL)
[2016-08-13 08:52] VITALS: BP 124/60; PULSE 93; RESP 18; TEMP 98; O2SAT 97
[2016-08-13] MEDS: SODIUM CHLORIDE 0.9% FLUSH 5 ML FLUSH FLUSH SCH ×3 (09:00→22:17)
[2016-08-13 11:48] VITALS: BP 123/72; PULSE 84; RESP 18; TEMP 98.2; O2SAT 99
[2016-08-13] MEDS: ACETAMINOPHEN/HYDROcodone 325 MG/5 MG TAB PO PRN ×2 (15:14→22:24)
[2016-08-13 20:25] VITALS: BP 132/56; PULSE 63; RESP 20; TEMP 98.1; O2SAT 100
[2016-08-13 23:11] VITALS: BP 122/69; PULSE 71; RESP 20; TEMP 98.1; O2SAT 98
[2016-08-14] VITALS (7 sets, daily range): BP systolic 106–125; BP diastolic 55–71; PULSE 63–73; RESP 16–20; TEMP 97.7–98.6; O2SAT 96–100
[2016-08-14] MEDS: levETIRAcetam 250 MG TAB PO SCH ×3 (05:20→21:49)
[2016-08-14] MEDS: SODIUM CHLOR 0.9% 1000 ML INJ 1,000 ML IV SCH (05:44)
[2016-08-14] MEDS: ACETAMINOPHEN/HYDROcodone 325 MG/5 MG TAB PO PRN (05:56)
[2016-08-14 06:02] LABS: INTERNATIONAL NORMALIZED RATIO 1.9 RATIO; PROTHROMBIN TIME - PATIENT 21.4 SEC (9.8-11.6)
[2016-08-14] MEDS ORDERED: IRON SUCROSE 100 MG/5 ML VIAL IV PUSH ONE (08:00)
[2016-08-14 08:04] LABS: MEAN CORPUSCULAR HGB CONC 29.1 % (32.0-36.0)
[2016-08-14] MEDS ORDERED: POTASSIUM CHLORIDE 10 MEQ CONTROLLED RELEASE TAB PO ONE (08:15)
[2016-08-14] MEDS: SODIUM CHLORIDE 0.9% FLUSH 5 ML FLUSH FLUSH SCH ×2 (09:00→21:00)
[2016-08-14] MEDS: SODIUM CHLOR 0.45% 1000 ML INJ 1,000 ML IV SCH ×2 (10:59→23:52)
[2016-08-14] MEDS ORDERED: SODIUM CHLORIDE 0.9% IV ONE (11:00)
[2016-08-14] MEDS ORDERED: IRON SUCROSE IV ONE (11:00)
[2016-08-14 11:07] LABS: AUTOMATED NEUTROPHIL # 8.1 TH/MM3 (1.8-7.7); BASOPHIL # 0.1 TH/MM3 (0-0.2); BASOPHIL % 1.1 % (0.0-2.0); EOSINOPHIL # 0.1 TH/MM3 (0-0.4); HEMATOCRIT 29.3 % (35.0-46.0); LYMPH % 15.6 % (9.0-44.0); LYMPHOCYTE # 1.6 TH/MM3 (1.0-4.8); MEAN CELL VOLUME 63.8 FL (80.0-100.0); MEAN CORPUSCULAR HEMOGLOBIN 18.6 PG (27.0-34.0); MONO % 6.1 % (0.0-8.0); NEUT % 76.2 % (16.0-70.0); PLATELET COUNT 493 TH/MM3 (150-450); RED BLOOD COUNT 4.59 MIL/MM3 (4.00-5.30); RED CELL DISTRIBUTION WIDTH 28.7 % (11.6-17.2); WHITE BLOOD COUNT 10.6 TH/MM3 (4.0-11.0)
[2016-08-14 11:10] LABS: HEMO FLAGS AUTO DIFF
[2016-08-14 11:36] LABS: BICARBONATE 25.8 MEQ/L (21.0-32.0); POTASSIUM 3.4 MEQ/L (3.5-5.1)
[2016-08-14 11:58] LABS: KERATOCYTES OCC (NORMAL); PLATELET MORPHOLOGY ENLARGED (NORMAL); SCAN/DIFF AUTO DIFF CONFIRMED
[2016-08-14 11:59] LABS: SPHEROCYTES OCC (NORMAL)
--- NOTE | 2016-08-14 14:25 | HHI.PR ---
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 She feels tired. Still with abdominal cramps, failry controlled by meds. No n/v/d/ c. Not eating much. Says she wants the surgery done as interferes with her daily activities, she can 't work because she has pain and needs to change her tampons too often. She also says she feels more tired. Objective Vitals Vital Signs Date Time Temp Pulse Resp B/P Pulse Ox O2 Delivery O2 Flow Rate FiO2 08/14/16 11:50 98.3 63 18 119/71 100 08/14/16 09:03 98.5 72 18 106/55 98 08/14/16 08:35 98 21 08/14/16 08:00 73 08/14/16 03:34 98.2 70 20 125/70 96 08/13/16 23:11 98.1 71 20 122/69 98 08/13/16 20:25 98.1 63 20 132/56 100 I/O 08/13/16 08/13/16 08/13/16 08/14/16 08/14/16 08/14/16 07:00 15:00 23:00 07:00 15:00 23:00 Intake Total 800 ml Balance 800 ml Intake IV Total 800 ml # Voids 5 Result Diagram: 08/14/16 1025 08/14/16 1025 Imaging Last Impressions Abdomen/Pelvis CT 08/12/16 0000 Signed Impressions: Service Date/Time: Friday, August 12, 2016 05:51 - CONCLUSION: 1. Large pelvic mass filling the majority of the pelvis and extending into the lower abdomen. Differential diagnosis includes uterine tumors and possible ovarian masses. 2. Right retroperitoneal adenopathy. 3. Moderate right hydronephrosis. Jay Euceda MD Objective Remarks GENERAL: This is a well-nourished, well-developed patient, in no apparent distress. SKIN: No rashes, ecchymoses or lesions. Cool and dry. HEAD: Atraumatic. Normocephalic. No temporal or scalp tenderness. EYES: Pupils equal round and reactive. Extraocular motions intact. No scleral icterus. No injection or drainage. ENT: Nose without bleeding, purulent drainage or septal hematoma. Throat without erythema, tonsillar hypertrophy or exudate. Uvula midline. Airway patent. NECK: Trachea midline. No JVD or lymphadenopathy. Supple, nontender, no meningeal signs. CARDIOVASCULAR: Regular rate and rhythm without murmurs, gallops, or rubs. RESPIRATORY: Clear to auscultation. Breath sounds equal bilaterally. No wheezes , rales, or rhonchi. GASTROINTESTINAL: Abdomen soft, distended, diffuse tenderness, large mass palpable. No hepato-splenomegaly. No guarding. MUSCULOSKELETAL: Extremities without clubbing, cyanosis, or edema. No joint tenderness, effusion, or edema noted. No calf tenderness. Negative Homans sign bilaterally. NEUROLOGICAL: Awake and alert. Cranial nerves II through XII intact. Motor and sensory grossly within normal limits. Five out of 5 muscle strength in all muscle groups. Normal speech. A/P Problem List: (1) Hydronephrosis of right kidney ICD Code: N13.30 Status: Chronic Assessment and Plan 36-year-old woman with: Abdominal pain. Nausea and vomiting. Large pelvic mass Severe iron deficiency anemia. Start venofer. Continue PO iron supplement. CT abd/pelvis reviewed, findings discussed with ED physician. 1. Large pelvic mass filling the majority of the pelvis and extending into the lower abdomen. Differential diagnosis includes uterine tumors and possible ovarian masses. 2. Right retroperitoneal adenopathy. 3. Moderate right hydronephrosis. Consult foxing painter and urology. Pain meds per pain scale. Start dicyclomine as need. IVF Tolerated diet Antiemetics as need Per Rehab Aid patient needs surgery , case management to help find a physician who takes patient insurance. Discussed with the CM. Per urology if plan for surgery within a month patient doesn't need a stent placed, however if surgery is postponed for > 1 month patient needs stent placed. Discussed with the patient. Hydronephrosis. Poss 2/2 mechanical obstruction by large pelvic mass. Urology consulted. Per urology if plan for surgery within a month patient doesn't need a stent placed, however if surgery is postponed for > 1 month patient needs stent placed. Anemia of blood loss: monitor H&H, appears at baseline. Check iron panel. With severe iron deficiency. H/H so far stable. No need to transfuse at this time. Transfuse if HGB < 7. Start venofer IV. DUB/Menorrhagia/fibroids: s/p endometrial ablation and D&C on 06/25/16; Receives Depo-Provera; gynecology was consulted H/o CVA (x2). Hold Coumadin as INR is supratherapeutic and in light of surgery. Patient has history of CVA. Monitor INR/PT Supraterapeutic INR of 4.1 on admission. Hold coumadin. Hypokalemia. Check mag . Replace and monitor. Seizure disorder: Resume Keppra. DVT prophylaxis: SCDs/TEDs. Discussed Condition With nurse, patient, Dr Pop urology Marycruz Ba MD Aug 14, 2016 14:25
[2016-08-14] MEDS: ACETAMINOPHEN/HYDROcodone 325 MG/10 MG TAB PO PRN ×2 (15:20→23:51)
[2016-08-14 21:01] LABS: MEAN CORPUSCULAR HGB CONC 29.6 % (32.0-36.0)
[2016-08-15] VITALS (12 sets, daily range): BP systolic 102–122; BP diastolic 54–69; PULSE 55–75; RESP 16–20; TEMP 95.3–98.2; O2SAT 98–100
[2016-08-15] MEDS: ACETAMINOPHEN/HYDROcodone 325 MG/10 MG TAB PO PRN ×2 (03:42→08:50)
[2016-08-15] MEDS: SODIUM CHLOR 0.45% 1000 ML INJ 1,000 ML IV SCH ×3 (03:42→22:09)
[2016-08-15] MEDS: levETIRAcetam 250 MG TAB PO SCH ×3 (05:06→22:08)
[2016-08-15 05:26] LABS: AUTOMATED NEUTROPHIL # 7.3 TH/MM3 (1.8-7.7); BASOPHIL # 0.1 TH/MM3 (0-0.2); BASOPHIL % 0.8 % (0.0-2.0); EOSINOPHIL # 0.1 TH/MM3 (0-0.4); EOSINOPHIL % 1.4 % (0.0-4.0); HEMATOCRIT 26.4 % (35.0-46.0); LYMPH % 13.7 % (9.0-44.0); LYMPHOCYTE # 1.3 TH/MM3 (1.0-4.8); MEAN CELL VOLUME 62.8 FL (80.0-100.0); MEAN CORPUSCULAR HEMOGLOBIN 18.6 PG (27.0-34.0); MONO % 7.2 % (0.0-8.0); NEUT % 76.9 % (16.0-70.0); PLATELET COUNT 491 TH/MM3 (150-450); RED CELL DISTRIBUTION WIDTH 28.9 % (11.6-17.2); WHITE BLOOD COUNT 9.6 TH/MM3 (4.0-11.0)
[2016-08-15 05:30] LABS: HEMO FLAGS AUTO DIFF
[2016-08-15 05:36] LABS: INTERNATIONAL NORMALIZED RATIO 1.3 RATIO
[2016-08-15 05:50] LABS: BICARBONATE 24.3 MEQ/L (21.0-32.0); MAGNESIUM 1.9 MG/DL (1.5-2.5); POTASSIUM 3.6 MEQ/L (3.5-5.1)
[2016-08-15 07:37] LABS: KERATOCYTES OCC (NORMAL); OVALOCYTES 1+ (NORMAL); SCAN/DIFF AUTO DIFF CONFIRMED; SPHEROCYTES OCC (NORMAL)
--- NOTE | 2016-08-15 07:53 | HHI.PR ---
Subjective Remarks INR 1.3. Discussed with Dr Davis customer care representative hospitalist. Poss surgery today, patient will be evaluated by Dr Pride. Keep NPO for now. Objective Vitals Vital Signs Date Time Temp Pulse Resp B/P Pulse Ox O2 Delivery O2 Flow Rate FiO2 08/15/16 04:00 97.5 62 17 117/56 99 08/15/16 00:00 96.7 58 17 121/63 100 08/14/16 19:56 98.6 71 16 110/56 100 08/14/16 16:29 97.7 73 18 125/56 100 08/14/16 11:50 98.3 63 18 119/71 100 08/14/16 09:03 98.5 72 18 106/55 98 08/14/16 08:35 98 21 08/14/16 08:00 73 I/O 08/14/16 08/14/16 08/14/16 08/15/16 08/15/16 08/15/16 07:00 15:00 23:00 07:00 15:00 23:00 Intake Total 940 ml Output Total 300 ml Balance 640 ml Intake Oral 480 ml IV Total 460 ml Output Urine Total 300 ml Result Diagram: 08/15/16 0424 08/15/16 0424 Imaging Last Impressions Abdomen/Pelvis CT 08/12/16 0000 Signed Impressions: Service Date/Time: Friday, August 12, 2016 05:51 - CONCLUSION: 1. Large pelvic mass filling the majority of the pelvis and extending into the lower abdomen. Differential diagnosis includes uterine tumors and possible ovarian masses. 2. Right retroperitoneal adenopathy. 3. Moderate right hydronephrosis. Jay Euceda MD Objective Remarks GENERAL: This is a well-nourished, well-developed patient, in no apparent distress. SKIN: No rashes, ecchymoses or lesions. Cool and dry. HEAD: Atraumatic. Normocephalic. No temporal or scalp tenderness. EYES: Pupils equal round and reactive. Extraocular motions intact. No scleral icterus. No injection or drainage. ENT: Nose without bleeding, purulent drainage or septal hematoma. Throat without erythema, tonsillar hypertrophy or exudate. Uvula midline. Airway patent. NECK: Trachea midline. No JVD or lymphadenopathy. Supple, nontender, no meningeal signs. CARDIOVASCULAR: Regular rate and rhythm without murmurs, gallops, or rubs. RESPIRATORY: Clear to auscultation. Breath sounds equal bilaterally. No wheezes , rales, or rhonchi. GASTROINTESTINAL: Abdomen soft, distended, diffuse tenderness, large mass palpable. No hepato-splenomegaly. No guarding. MUSCULOSKELETAL: Extremities without clubbing, cyanosis, or edema. No joint tenderness, effusion, or edema noted. No calf tenderness. Negative Homans sign bilaterally. NEUROLOGICAL: Awake and alert. Cranial nerves II through XII intact. Motor and sensory grossly within normal limits. Five out of 5 muscle strength in all muscle groups. Normal speech. A/P Problem List: (1) Hydronephrosis of right kidney ICD Code: N13.30 Status: Chronic Assessment and Plan 36-year-old woman with: Abdominal pain. Nausea and vomiting. Large pelvic mass Severe iron deficiency anemia. Start venofer. Continue PO iron supplement. CT abd/pelvis reviewed, findings discussed with ED physician. 1. Large pelvic mass filling the majority of the pelvis and extending into the lower abdomen. Differential diagnosis includes uterine tumors and possible ovarian masses. 2. Right retroperitoneal adenopathy. 3. Moderate right hydronephrosis. Consult house principal and urology. Pain meds per pain scale. Start dicyclomine as need. IVF Tolerated diet Antiemetics as need Per Natural Remedy Consultant patient needs surgery , case management to help find a physician who takes patient insurance. Discussed with the CM. Per urology if plan for surgery within a month patient doesn't need a stent placed, however if surgery is postponed for > 1 month patient needs stent placed. Discussed with the patient and business project analyst service Plan for surgery per Natural Remedy Consultant tomorrow 08/16 Keep NPO o=after midnight H/H is low and in light of surgery patient need 3U PRBC before surgery to be transfused today 08/15, and have 3 on hold per PST MANAGER. Premedicated. Monitor H/H Hydronephrosis. Poss 2/2 mechanical obstruction by large pelvic mass. Urology consulted. Per urology if plan for surgery within a month patient doesn't need a stent placed, however if surgery is postponed for > 1 month patient needs stent placed. Plan for surgery for pelvic mass removal and doesn't need stent Anemia of blood loss: monitor H&H, appears at baseline. Check iron panel. With severe iron deficiency. H/H so far stable. No need to transfuse at this time. Start venofer IV. H.H low and in light of surgery 08/16 and removal of large mass will transfuse3 U pRBCs today and have 3 on hold for surgery / Type and cross DUB/Menorrhagia/fibroids: s/p endometrial ablation and D&C on 06/25/16; Receives Depo-Provera; gynecology was consulted H/o CVA (x2). Hold Coumadin as INR is supratherapeutic and in light of surgery. Patient has history of CVA. Monitor INR/PT Supraterapeutic INR of 4.1 on admission. Hold coumadin. Hypokalemia. Check mag . Replace and monitor. Seizure disorder: Resume Keppra. DVT prophylaxis: SCDs/TEDs. Discussed Condition With nurse, patient, Dr Davis customer care representative, Dr Bay ob.house principal Marycruz Ba MD Aug 15, 2016 07:53
[2016-08-15] MEDS: SODIUM CHLORIDE 0.9% FLUSH 5 ML FLUSH FLUSH SCH ×2 (08:41→20:21)
--- NOTE | 2016-08-15 10:33 | PD.CONS ---
History & Physical H&P 36-year-old female with a large pelvic mass Fibroid uterus Patient comfortable this a.m. minimal amount of bleeding She is presently nothing by mouth for possible surgery this morning Spoke with Dr. Brito who was the GUEST EXPERIENCE CAPTAIN attending on duty at the time the patient came in on [address] Bay is covering today we'll discuss the possibility of taking this patient to surgery today for a hysterectomy The patient understands that this treatment is the recommended course of action and agrees with the hysterectomy She had a D&C earlier in the year by her private physician Dr. Bennett will attempt to get a copy of the pathology for this procedure Lissa Ragland MD Aug 15, 2016 10:33
[2016-08-15] MEDS: IRON SUCROSE INJ 200 MG in SODIUM CHLORIDE 0.9% INJ 100 ML IV SCH (11:52)
[2016-08-15] MEDS ORDERED: FUROSEMIDE 20 MG/2 ML VIAL IV ONE (12:15)
[2016-08-15] MEDS ORDERED: diphenhydrAMINE HCL 25 MG CAP PO PRN ×3 (12:15→20:15)
[2016-08-15] MEDS ORDERED: SODIUM CHLOR 0.9% 250 ML INJ 250 ML IV ONE (12:15)
[2016-08-15] MEDS ORDERED: ACETAMINOPHEN 325 MG TAB PO PRN ×3 (12:15→20:15)
--- NOTE | 2016-08-15 12:28 | HHI.HP ---
HPI Chief Complaint anemia, fibroids, heavy bleeding Travel History International Travel<30 Days: No Contact w/Intl Traveler<30Days: No Known Affected Area: No History of Present Illness HPI 36 yo admitted for anemia, has known history of fibroid uterus and menometrorrhagia. She was dx with fibroids in 2010, did not have surgery as she had childcare issues. She has had a blood transfusion in February of this year and 1.5 weeks ago. She had a D&C with her dormitory maid in [place] in June, does not know results. She was placed on DMPA but states that she has had daily bleeding for over 6 months. She has severe dysmenorrhea. She was being referred to [place] for a TANNER but did not followup. She presented to the ED on 08/12 for severe abdominal pain. Hgb was 9.5 at time of admission, presently 7.4. She has had mild bleeding in hospital; pad change q [address] significant for right hydronephrosis and enalrged pelvic mass, likely fibroid uterus. She has a pmh significant for cva x 2, on coumadin 10mg daily, INR was supra-therapeutic at 4. Para: 1 : 1 History Past Medical History Narrative Medical CVA x 2 in 2012 and 2013 (second stroke after stopping anticoagulants) afib on coumadin seizure disorder anxiety/depression Obstetric History Obstetric History 1 ftcd Past Surgical History Narrative Surgical cd and D&C Family History Family History: Negative Social History Narrative Social History lives in [facility], currently unemployed. Her son is living with father/ fob girlfriend Alcohol Use: Yes Tobacco Use: Yes Substance Abuse: Yes (MJ use ) Allergies-Medications (Allergen,Severity, Reaction): Coded Allergies: No Known Allergies (Unverified , 08/05/16) Home Meds Reported Medications Warfarin (Coumadin)10 Mg Tab10 Mg PO DAILY #30 TAB Ref 0 07/04/16 Methocarbamol 750 Mg [id number] Mg PO HS PRN (Muscle Spasm) #120 TAB Ref 0 07/04/16 Levetiracetam (Keppra)250 Mg [id number] Mg PO TID #60 TAB Ref 0 07/04/16 Discontinued Reported Medications Probiotic Product (Probiotic Acidophilus)1 Cap Cap 07/04/16 Review of Systems General / Constitutional: No: Fever, Weight Gain, Chills, Other Eyes: No: Diploplia, Blurred Vision, Visual changes, Pain, Photophobia HENT: No: Headaches, Vertigo, Lightheadedness Cardiovascular: No: Irregular Rhythm, Chest Pain or Discomfort, Palpitations, Tachycardia, Syncope, Varicosities, Edema, Cyanosis Respiratory: No: Cough, Short of Breath, Other Gastrointestinal: Abdominal Pain, No: Nausea, Vomiting, Diarrhea Genitourinary: Menorrhagia, No: Decreased Urinary Output, Oliguria Musculoskeletal: No: Limited ROM, Weakness, Cramping, Edema, Pain Skin: No Rash, No Itching, No Dryness, No Lumps, No Change in Pigmentation, No Change in Nails, No Alopecia, No Lesions Neurologic: Seizures, No: Weakness, Dizziness, Syncope, Focal Abnormalities, Coordination Problem, Headache, Slurred Speech Psychiatric: Anxiety, Depression, No: Suicidal Ideations, Homicidal Ideation Endocrine: No: Heat Intolerance, Cold Intolerance, Polydipsia, Polyuria, Other Physical Exam Narrative GENERAL: Well-nourished, well-developed patient. SKIN: Warm and dry. HEAD: Normocephalic and atraumatic. EYES: No scleral icterus. No injection or drainage. ENT: No nasal drainage noted. Mucous membranes pink. Airway patent. NECK: Supple, trachea midline. No JVD. CARDIOVASCULAR: Regular rate and rhythm without murmurs, gallops, or rubs. RESPIRATORY: Breath sounds equal bilaterally. No accessory muscle use. ABDOMEN/GI: Abdomen soft, non-tender, bowel sounds present, no rebound, no guarding Uterus to 30 weeks size, very broad based EXTREMITIES: No cyanosis or edema. BACK: Nontender without obvious deformity. No CVA tenderness. NEUROLOGICAL: Awake and alert. Motor and sensory grossly within normal limits. Five out of 5 muscle strength in all muscle groups. Normal speech. Data Data Vital Signs Reviewed: Yes Orders Patient Transfer (08/14/16 ) Consult Gynecology (08/15/16 ) (Hub Use Only)[facility] Cons/Ref (08/15/16 07:29) Basic Metabolic Panel (Bmp) (08/16/16 06:00) Complete Blood Count With Diff (08/16/16 06:00) Red Blood Cells (Rbc) (08/15/16 12:05) Blood Product Administration .UPON TRANSFUSION (08/15/16 12:05) ^ Instruction (08/15/16 12:05) Sodium Chlor 0.9% 250 Ml Inj (Ns 250 Ml (08/15/16 12:15) Acetaminophen (Tylenol) (08/15/16 12:15) Diphenhydramine (Benadryl) (08/15/16 12:15) Furosemide Inj (Lasix Inj) (08/15/16 12:15) Type And Screen (08/15/16 12:05) Diet Heart Healthy (08/15/16 Lunch) Labs Laboratory Tests Test 08/15/16 04:24 White Blood Count 9.6 Red Blood Count 4.20 Hemoglobin 7.8 Hematocrit 26.4 Mean Corpuscular Volume 62.8 Mean Corpuscular Hemoglobin 18.6 Mean Corpuscular Hemoglobin 29.6 Concent Red Cell Distribution Width 28.9 Platelet Count 491 Mean Platelet Volume 8.9 Neutrophils (%) (Auto) 76.9 Lymphocytes (%) (Auto) 13.7 Monocytes (%) (Auto) 7.2 Eosinophils (%) (Auto) 1.4 Basophils (%) (Auto) 0.8 Neutrophils # (Auto) 7.3 Lymphocytes # (Auto) 1.3 Monocytes # (Auto) 0.7 Eosinophils # (Auto) 0.1 Basophils # (Auto) 0.1 CBC Comment AUTO DIFF Differential Comment AUTO DIFF CONFIRMED Spherocytes OCC Ovalocytes 1+ Keratocytes OCC Prothrombin Time 15.0 Prothromb Time International 1.3 Ratio Sodium Level 141 Potassium Level 3.6 Chloride Level 109 Carbon Dioxide Level 24.3 Anion Gap 8 Blood Urea Nitrogen 4 Creatinine 0.51 Estimat Glomerular Filtration 163 Rate Random Glucose 88 Calcium Level 9.0 Magnesium Level 1.9 Laboratory Tests Test 08/13/16 08/14/16 08/14/16 08/15/16 05:54 05:12 10:25 04:24 White Blood Count 11.7 TH/MM3 (4.0-11.0) Hemoglobin 7.9 GM/DL 8.5 GM/DL 7.8 GM/DL (11.6-15.3) (11.6-15.3) (11.6-15.3) Hematocrit 27.5 % 29.3 % 26.4 % (35.0-46.0) (35.0-46.0) (35.0-46.0) Mean Corpuscular Volume 62.8 FL 63.8 FL 62.8 FL (80.0-100.0) (80.0-100.0) (80.0-100.0) Mean Corpuscular Hemoglobin 18.0 PG 18.6 PG 18.6 PG (27.0-34.0) (27.0-34.0) (27.0-34.0) Mean Corpuscular Hemoglobin 28.6 % 29.1 % 29.6 % Concent (32.0-36.0) (32.0-36.0) (32.0-36.0) Red Cell Distribution Width 29.3 % 28.7 % 28.9 % (11.6-17.2) (11.6-17.2) (11.6-17.2) Neutrophils (%) (Auto) 80.7 % 76.2 % 76.9 % (16.0-70.0) (16.0-70.0) (16.0-70.0) Neutrophils # (Auto) 9.4 TH/MM3 8.1 TH/MM3 (1.8-7.7) (1.8-7.7) Platelet Estimate HIGH (NORMAL) Tear Drop Cells 1+ (NORMAL) Ovalocytes 1+ (NORMAL) 1+ (NORMAL) Keratocytes OCC (NORMAL) OCC (NORMAL) OCC (NORMAL) Prothrombin Time 37.0 SEC 21.4 SEC 15.0 SEC (9.8-11.6) (9.8-11.6) (9.8-11.6) Potassium Level 3.4 MEQ/L 3.4 MEQ/L (3.5-5.1) (3.5-5.1) Chloride Level 110 MEQ/L 108 MEQ/L 109 MEQ/L (98-107) (98-107) (98-107) Blood Urea Nitrogen 5 MG/DL (7-18) 6 MG/DL (7-18) 4 MG/DL (7-18) Calcium Level 8.2 MG/DL (8.5-10.1) Platelet Count 493 TH/MM3 491 TH/MM3 (150-450) (150-450) Platelet Morphology Comment ENLARGED (NORMAL) Spherocytes OCC (NORMAL) OCC (NORMAL) Assessment/Plan Problem List: (1) Menorrhagia (2) Anemia associated with acute blood loss (3) Pelvic mass (4) Fibroids (5) Hydroureter Assessment and Plan 36 yo with menometrorrhagia, fibroid uterus. Discussed intervention options, UAE (likely would fail), medical management, or surgery. Discussed TANNER with vertical skin incision given size of uterus. Aware of possible need for bso, staging procedure if malignancy suspected. Discussed risks of bleeding, damage to nerves, blood vessels, organs near operative field, and risk of associated with surgery. Given Hgb of 7 , will transfuse with 3 units of blood today as high ebl is very likely with surgery. She will receive heparin this evening given her history of cva x2, SCD ble orders. consents reviewed, signed and on chart. Pt had opportunity to ask questions, all questions answered. Surgery is scheduled for tomorrow morning at 8:30 am Plan discussed with nurse, hospitalist, and pt. Jenifer Bay MD Aug 15, 2016 12:28
[2016-08-15] MEDS: ACETAMINOPHEN/HYDROcodone 325 MG/5 MG TAB PO PRN (15:01)
[2016-08-15] MEDS ORDERED: HEPARIN SODIUM - IV 10,000 UNITS/10 ML VIAL IV ONE (19:00)
[2016-08-15] MEDS: DICYCLOMINE HCL 20 MG TAB PO PRN (22:09)
[2016-08-16] VITALS: BP 109/65; PULSE 55; RESP 20; TEMP 98.2; O2SAT 100
[2016-08-16 02:39] LABS: AUTOMATED NEUTROPHIL # 6.9 TH/MM3 (1.8-7.7); BASOPHIL # 0.1 TH/MM3 (0-0.2); EOSINOPHIL # 0.1 TH/MM3 (0-0.4); EOSINOPHIL % 1.4 % (0.0-4.0); HEMATOCRIT 32.5 % (35.0-46.0); LYMPH % 16.5 % (9.0-44.0); LYMPHOCYTE # 1.6 TH/MM3 (1.0-4.8); MEAN CORPUSCULAR HEMOGLOBIN 20.9 PG (27.0-34.0); MEAN CORPUSCULAR HGB CONC 30.7 % (32.0-36.0); MONO % 7.3 % (0.0-8.0); NEUT % 73.8 % (16.0-70.0); PLATELET COUNT 462 TH/MM3 (150-450); RED BLOOD COUNT 4.78 MIL/MM3 (4.00-5.30); RED CELL DISTRIBUTION WIDTH 29.9 % (11.6-17.2); WHITE BLOOD COUNT 9.4 TH/MM3 (4.0-11.0)
[2016-08-16 02:47] LABS: INTERNATIONAL NORMALIZED RATIO 1.4 RATIO; PROTHROMBIN TIME - PATIENT 15.7 SEC (9.8-11.6)
[2016-08-16 02:50] LABS: HEMO FLAGS AUTO DIFF
[2016-08-16 02:59] LABS: POTASSIUM 3.5 MEQ/L (3.5-5.1)
[2016-08-16] MEDS: levETIRAcetam 250 MG TAB PO SCH ×3 (05:14→21:03)
[2016-08-16] MEDS: LACTATED RINGER'S 1000 ML IV SCH ×2 (05:24→21:12)
[2016-08-16 06:53] LABS: ACANTHOCYTES OCC (NORMAL); OVALOCYTES 1+ (NORMAL)
[2016-08-16 06:54] LABS: SCAN/DIFF AUTO DIFF CONFIRMED
[2016-08-16] MEDS: SODIUM CHLORIDE 0.9% FLUSH 5 ML FLUSH FLUSH SCH ×2 (07:37→21:00)
[2016-08-16 08:00] VITALS: BP 137/69; PULSE 62; RESP 17; TEMP 96.7; O2SAT 98
[2016-08-16] MEDS: ceFAZolin 2 GM PREMIX 50 ML IV SCH ×2 (08:12→08:14)
[2016-08-16] MEDS ORDERED: ACETAMINOPHEN 1000 MG/100 ML VIAL IV ONE (08:13)
[2016-08-16] MEDS: SODIUM CHLOR 0.45% 1000 ML INJ 1,000 ML IV SCH ×2 (08:18→20:15)
--- NOTE | 2016-08-16 08:19 | HHI.PR ---
OCCUPATIONAL THERAPY MANAGER Note Note S: pt doing well this morning. highly desires surgery, she is npo O: Vital Signs Date Time Temp Pulse Resp B/P Pulse Ox O2 Delivery O2 Flow Rate FiO2 08/16/16 00:00 98.2 55 20 109/65 100 08/15/16 23:03 98.2 55 20 109/65 100 08/15/16 22:50 97.7 75 19 120/57 100 08/15/16 20:15 97.8 62 19 122/69 08/15/16 20:00 63 08/15/16 20:00 96.4 56 18 107/55 98 08/15/16 20:00 96.4 56 18 107/55 98 08/15/16 16:40 98.0 65 16 102/63 100 08/15/16 16:18 98.1 65 17 104/55 100 08/15/16 16:00 98.1 65 17 104/55 100 08/15/16 12:00 95.3 69 17 120/58 100 08/15/16 11:06 100 21 Gen nad resp ctab cv r/r/r no murmur appreciated abd 30+ wk size uterus, nontender ext no c/c/e Vital Signs, 24 Hour Date Time Temp Pulse Resp B/P Pulse Ox O2 Delivery O2 Flow Rate FiO2 08/16/16 00:00 98.2 55 20 109/65 100 08/15/16 23:03 98.2 55 20 109/65 100 08/15/16 22:50 97.7 75 19 120/57 100 08/15/16 20:15 97.8 62 19 122/69 08/15/16 20:00 63 08/15/16 20:00 96.4 56 18 107/55 98 08/15/16 20:00 96.4 56 18 107/55 98 08/15/16 16:40 98.0 65 16 102/63 100 08/15/16 16:18 98.1 65 17 104/55 100 08/15/16 16:00 98.1 65 17 104/55 100 08/15/16 12:00 95.3 69 17 120/58 100 08/15/16 11:06 100 21 Allergies Coded Allergies No Known Allergies (Hubysdiutz34/19/16) Orders-Jenifer Bay MD Procedure Category Date Status Time Red Blood Cells (Rbc) BBK 08/15/16 In Process 12:05 Blood Product DEDRA 08/15/16 In Process Administration 12:05 ^ Instruction DEDRA 08/15/16 In Process 12:05 Type And Screen BBK 08/15/16 In Process 12:05 Diet Npo DIET 08/16/16 Transmitted Breakfast Cefazolin 2 Gm Premix MED 08/16/16 In Process (Ancef 2 Gm Premix 08:00 Red Blood Cells (Rbc) BBK 08/15/16 In Process 13:49 Laboratory Tests per Lorraine Test 08/16/16 02:00 White Blood Count 9.4 TH/MM3 Red Blood Count 4.78 MIL/MM3 Sodium Level 143 MEQ/L Potassium Level 3.5 MEQ/L Blood Urea Nitrogen 8 MG/DL Active Scripts Active Reported Coumadin (Warfarin) 10 Mg Tab 10 Mg PO DAILY Methocarbamol 750 Mg Tab 750 Mg PO HS PRN Keppra (Levetiracetam) 250 Mg Tab 250 Mg PO TID A/P 36 yo with menometrorrhagia, fibroid uterus. Discussed intervention options, UAE (likely would fail), medical management, or surgery. Discussed TANNER with vertical skin incision given size of uterus. Aware of possible need for bso, staging procedure if malignancy suspected. Discussed risks of bleeding, damage to nerves, blood vessels, organs near operative field, and risk of associated with surgery. Given Hgb of 7 , will transfuse with 3 units of blood today as high ebl is very likely with surgery. She will receive heparin this evening given her history of cva x2, SCD ble orders. consents reviewed, signed and on chart. Pt had opportunity to ask questions, all questions answered. Surgery is scheduled for this morning at 8:30 am Jenifer Bay MD Aug 16, 2016 08:19
[2016-08-16] MEDS ORDERED: OXYTOCIN 10 UNIT/ML AMP ONE (08:26)
[2016-08-16] MEDS ORDERED: VASOPRESSIN INJ 20 UNITS/ML VIAL ONE (08:31)
[2016-08-16] MEDS ORDERED: ceFAZolin INJ 1,000 MG VIAL ONE (08:37)
[2016-08-16] MEDS ORDERED: METHYLENE BLUE 10 MG/ML VIAL ONE (08:37)
[2016-08-16] MEDS ORDERED: MICROFIBRILLAR COLLAGEN HEMOSTAT 1 GM PKT ONE (08:37)
[2016-08-16] MEDS ORDERED: GELATIN POWDER 1 GM PACKET ONE (08:37)
[2016-08-16] MEDS ORDERED: MIDAZOLAM HCL 2 MG/2 ML VIAL ONE ×2 (08:43→13:02)
[2016-08-16] MEDS ORDERED: DEXAMETHASONE SOD PHOS 20 MG/5 ML VIAL ONE (08:43)
[2016-08-16] MEDS ORDERED: FAMOTIDINE 20 MG/2 ML VIAL ONE (08:43)
[2016-08-16] MEDS ORDERED: SUGAMMADEX SODIUM 200 MG/2 ML VIAL IV PUSH ONE ×2 (09:39)
[2016-08-16] MEDS ORDERED: HYDROmorphone HCL PF 2 MG/ML VIAL ONE (09:39)
[2016-08-16] MEDS ORDERED: SODIUM CHLORIDE 0.9% 20 ML VIAL ONE (09:59)
[2016-08-16] MEDS ORDERED: LACTATED RINGER'S 1000 ML INJ 4,000 ML IV ONE (12:00)
[2016-08-16] MEDS ORDERED: ONDANSETRON HCL 4 MG/2 ML VIAL IV PUSH ONE (12:00)
[2016-08-16] MEDS ORDERED: PROPOFOL 200 MG/20 ML AMP IV ONE (12:00)
[2016-08-16] MEDS ORDERED: *morphine SULFATE 8 MG/ML PERIprocedure ONLY ONE ×2 (12:49→13:12)
[2016-08-16] MEDS ORDERED: oxyCODONE/ACETAMINOPHEN 5 MG/325 MG TAB PO PRN (13:00)
[2016-08-16] MEDS ORDERED: ONDANSETRON HCL 4 MG/2 ML VIAL IV PUSH PRN (13:00)
[2016-08-16] MEDS ORDERED: MORPHINE SULFATE 30 MG/30 ML PCA IV SCH (13:00)
[2016-08-16] MEDS ORDERED: DO NOT ADM ANY ANTICOAGULANT DRUGS XX PRN (13:00)
[2016-08-16] MEDS ORDERED: METOCLOPRAMIDE HCL 10 MG/2 ML VIAL IV PUSH PRN (13:00)
[2016-08-16] MEDS ORDERED: diphenhydrAMINE HCL 50 MG/ML VIAL IV PRN (13:00)
[2016-08-16] MEDS ORDERED: NALOXONE HCL 0.4 MG/ML AMP IV PRN (13:00)
[2016-08-16] MEDS ORDERED: PROMETHAZINE INJ 25 MG/ML VIAL IM PRN (13:00)
[2016-08-16] MEDS ORDERED: PROMETHAZINE HCL 25 MG TAB PO PRN (13:00)
[2016-08-16] MEDS ORDERED: ONDANSETRON ODT 4 MG TAB SL PRN (13:00)
[2016-08-16] MEDS ORDERED: fentaNYL CITRATE 250 MCG/5 ML AMP ONE (13:02)
[2016-08-16] MEDS: LACTATED RINGER'S 1000 ML INJ 1,000 ML IV SCH (13:15)
--- NOTE | 2016-08-16 13:20 | HHI.PR ---
Immediate Post Op Note Procedure Date: Aug 16, 2016 Pre Op Diagnosis: (1) Menorrhagia (2) Pelvic mass (3) Hydronephrosis of right kidney (4) Anemia associated with acute blood loss (5) Fibroids Post Op Diagnosis: (1) Menorrhagia (2) Fibroids (3) Hydronephrosis of right kidney (4) Anemia associated with acute blood loss (5) Pelvic mass (6) Endometriosis Surgeon: Jenifer Bay Pharmacogeneticist(s): Vernell Morris MD Procedure: Exam under anesthesia, exploratory laparotomy, supracervical hysterectomy, bilateral salpingectomy, right oophorectomy Findings: 35 wk size uterus with multiple fibroids up to 8 cm in size. normal ovaries and tubes bilaterally. likely endometriosis noted in posterior cul de sac with adhesion to bowel. cervix very small and retracted into pelvis. normal liver edge, no implants palpated or visualized on peritoneum. gallbladder slightly enlarged, no stones palpated. Complications: none Specimen(s) removed: uterus bilateral tubes and right ovary Estimated blood loss: 500ml Anesthesia: General Drains: None Fluids: 2500ml IVF Patient to: PACU Patient Condition: Good Jenifer Bay MD Aug 16, 2016 13:20
--- NOTE | 2016-08-16 13:21 | HHI.PR ---
Subjective Remarks Seen after the surgery in PACU. Patient says she has some pain controlled with meds. Discussed with the sureon and the nurse. Patient had minimal bleeding 500 cc. Patient denied any cp, sob, n/v/d/c .No fever or chills. Objective Vitals Vital Signs Date Time Temp Pulse Resp B/P Pulse Ox O2 Delivery O2 Flow Rate FiO2 08/16/16 08:00 96.7 62 17 137/69 98 08/16/16 00:00 98.2 55 20 109/65 100 08/15/16 23:03 98.2 55 20 109/65 100 08/15/16 22:50 97.7 75 19 120/57 100 08/15/16 20:15 97.8 62 19 122/69 08/15/16 20:00 63 08/15/16 20:00 96.4 56 18 107/55 98 08/15/16 20:00 96.4 56 18 107/55 98 08/15/16 16:40 98.0 65 16 102/63 100 08/15/16 16:18 98.1 65 17 104/55 100 08/15/16 16:00 98.1 65 17 104/55 100 I/O 08/15/16 08/15/16 08/15/16 08/16/16 08/16/16 08/16/16 06:59 14:59 22:59 06:59 14:59 22:59 Intake Total 940 ml 718 ml 545 ml 1310 ml Output Total 300 ml 550 ml 550 ml Balance 640 ml 168 ml 545 ml 760 ml Intake Oral 480 ml 460 ml IV Total 460 ml 718 ml 545 ml 250 ml Packed Cells 600 ml Output Urine Total 300 ml 550 ml 550 ml # Bowel Movements 0 0 Result Diagram: 08/16/16 0200 08/16/16 0200 Imaging Last Impressions Abdomen/Pelvis CT 08/12/16 0000 Signed Impressions: Service Date/Time: Friday, August 12, 2016 05:51 - CONCLUSION: 1. Large pelvic mass filling the majority of the pelvis and extending into the lower abdomen. Differential diagnosis includes uterine tumors and possible ovarian masses. 2. Right retroperitoneal adenopathy. 3. Moderate right hydronephrosis. Jay Euceda MD Objective Remarks GENERAL: This is a well-nourished, well-developed patient, in no apparent distress. SKIN: No rashes, ecchymoses or lesions. Cool and dry. HEAD: Atraumatic. Normocephalic. No temporal or scalp tenderness. EYES: Pupils equal round and reactive. Extraocular motions intact. No scleral icterus. No injection or drainage. ENT: Nose without bleeding, purulent drainage or septal hematoma. Throat without erythema, tonsillar hypertrophy or exudate. Uvula midline. Airway patent. NECK: Trachea midline. No JVD or lymphadenopathy. Supple, nontender, no meningeal signs. CARDIOVASCULAR: Regular rate and rhythm without murmurs, gallops, or rubs. RESPIRATORY: Clear to auscultation. Breath sounds equal bilaterally. No wheezes , rales, or rhonchi. GASTROINTESTINAL: Abdomen soft, mid abdomen postsurgical with dressing on c/d/ i. No hepato-splenomegaly. No guarding. MUSCULOSKELETAL: Extremities without clubbing, cyanosis, or edema. No joint tenderness, effusion, or edema noted. No calf tenderness. Negative Homans sign bilaterally. NEUROLOGICAL: Awake and alert. Cranial nerves II through XII intact. Motor and sensory grossly within normal limits. Five out of 5 muscle strength in all muscle groups. Normal speech. A/P Problem List: (1) Hydronephrosis of right kidney ICD Code: N13.30 Status: Chronic Assessment and Plan 36-year-old woman with: Abdominal pain. Nausea and vomiting. Large pelvic mass Severe iron deficiency anemia. Start venofer. Continue PO iron supplement. CT abd/pelvis reviewed, findings discussed with ED physician. 1. Large pelvic mass filling the majority of the pelvis and extending into the lower abdomen. Differential diagnosis includes uterine tumors and possible ovarian masses. 2. Right retroperitoneal adenopathy. 3. Moderate right hydronephrosis. Consult area supervisor and urology. Pain meds per pain scale. Start dicyclomine as need. IVF Tolerated diet Antiemetics as need Per Blow Pit Helper patient needs surgery , case management to help find a physician who takes patient insurance. Discussed with the CM. Per urology if plan for surgery within a month patient doesn't need a stent placed, however if surgery is postponed for > 1 month patient needs stent placed. Discussed with the patient and feller hand service Plan for surgery per Blow Pit Helper tomorrow 08/16 H/H is low and in light of surgery patient received 3U PRBC before surgery , and have 3 on hold per CHEMISTRY TECHNICIAN. Premedicated. Monitor H/H stble S/P pelvic mass removal today 08/16/16 May restart coumadin and lovenox full dose bridge for anticoagulation tonight, discussed with the surgeon Monitor INR. Pharmacy consult for coumadin. Hydronephrosis. Poss 2/2 mechanical obstruction by large pelvic mass. Urology consulted. Per urology if plan for surgery within a month patient doesn't need a stent placed, however if surgery is postponed for > 1 month patient needs stent placed. Plan for surgery for pelvic mass removal and doesn't need stent Anemia of blood loss: monitor H&H, appears at baseline. Check iron panel. With severe iron deficiency. H/H so far stable. No need to transfuse at this time. Start venofer IV. H.H low and in light of surgery 08/16 and removal of large mass will transfuse3 U pRBCs today and have 3 on hold for surgery / Type and cross DUB/Menorrhagia/fibroids: s/p endometrial ablation and D&C on 06/25/16; Receives Depo-Provera; gynecology was consulted H/o CVA (x2). Hold Coumadin as INR is supratherapeutic and in light of surgery. Patient has history of CVA. Monitor INR/PT Supraterapeutic INR of 4.1 on admission. Hold coumadin. Hypokalemia. Check mag . Replace and monitor. Seizure disorder: Resume Keppra. DVT prophylaxis: SCDs/TEDs. Discussed Condition With nurse, patient, Dr Bay oil and gas principal Marycruz Ba MD Aug 16, 2016 13:21
[2016-08-16] MEDS: PCA - TOTAL MG MORPHINE DELIVERED PER SHIFT SCH ×2 (14:00→21:13)
[2016-08-16] MEDS: IRON SUCROSE INJ 200 MG in SODIUM CHLORIDE 0.9% INJ 100 ML IV SCH (14:18)
[2016-08-16] MEDS: ACETAMINOPHEN/HYDROcodone 325 MG/10 MG TAB PO PRN ×2 (14:48→21:05)
--- NOTE | 2016-08-16 15:45 | MP ---
cc: SHARON ABY MD DATE OF SURGERY: 08/16/2016 PREOPERATIVE DIAGNOSIS 1. Menometrorrhagia. 2. Leiomyomatous uterus. 3. Anemia.\ 4. Right hydronephrosis POSTOPERATIVE DIAGNOSIS 1. Menometrorrhagia. 2. Leiomyomatous uterus. 3. Anemia. 4. Endometriosis. 5. Right hydronephrosis secondary to mechanical obstruction. PROCEDURE PERFORMED 1. Exam under anesthesia. 2. Exploratory laparotomy. 3. Supracervical hysterectomy. 4. Bilateral salpingectomy. 5. Right oophorectomy. INDICATIONS The patient is a 36-year-old, G1, P1, with a long history of menometrorrhagia. She has a known fibroid uterus since 2010 and refused surgery at that time. She since that time developed a stroke, likely secondary to atrial fibrillation. She was placed on anticoagulation therapy. Over the last 6 months she has had almost daily bleeding. She underwent a D&C in June with a doctor in [place] and was started on Depo-Provera, but has continued to have daily bleeding. The risks of surgery were discussed with the patient including blood loss, damage to organs in the operative field including ureter, bowel and bladder, possible risk of infection, possible risk of blood clot formation, possible risk of , and discussed alternative options of continued medical management and uterine artery embolization which is unlikely to be successful giving the size of the uterus. The patient was given the opportunity to ask questions. Consents were reviewed and signed. All questions were answered. SURGEON Sharon Bay MD REFRIGERATOR ROOM CLERK SURGEON Vernell Morris MD ANESTHESIA General endotracheal anesthesia. ESTIMATED BLOOD LOSS 500 mL. URINE OUTPUT 500 mL. IV FLUIDS 3800 mL of LR. COMPLICATIONS None. SPECIMEN Uterus, bilateral tubes, right ovary. INTRAOPERATIVE FINDINGS A large 35 week size uterus with multiple fibroids. Normal ovaries bilaterally. Normal tubes bilaterally. Small paratubal cyst on the right. Minimal adhesions of the bladder to the lower uterine segment from previous . Normal liver edge. Slightly enlarged gallbladder. No peritoneal implants noted. Normal omentum. A small amount of endometriosis in the posterior cul-de-sac to the uterosacral ligament and adhesions of the bowel to this. PREOPERATIVE ANTIBIOTICS Ancef 2 grams IV pre incision. DVT PROPHYLAXIS Bilateral lower extremity SCDs. The patient received heparin the evening prior to surgery. PROCEDURE IN DETAIL After reviewing the informed consent, the patient was taken to the operating room where general anesthesia was administered without complication. Time out was performed. An exam under anesthesia was performed see the intraoperative findings. The abdomen and perineum were prepared in normal sterile fashion. The Cisneros catheter was placed under sterile condition. A vertical midline incision supraumbilical down to the pubic bone was made with a scalpel and carried down to the underlying layer of fascia with the Bovie. The fascia was incised in the midline. The fascia was extended superiorly and inferiorly with Kirby scissors. The rectus muscle were in the midline. the periotoneum was entered sharply after tenting with hemostats. This incision was extended with Kirby scissors. The uterus was then exteriorized. A Bookwalter retractor was placed. The bowel was packed away. The retractor was placed posteriorly. A bladder blade was inserted. Attention was then turned to the round ligament. The right round ligament was grasped with a Tri clamp. Two stitches were placed on the round ligament. The round ligament was transected with the Bovie. The anterior flap of the broad ligament was dissected in the medial caudal fashion to develop the bladder flap. Some adhesions from the prior were noted. These adhesions were taken down with the Metzenbaum scissors. The same was repeated on the opposite side. A window was created in the posterior leaf of the right broad ligament. A hysterectomy clamp was placed through this window across the utero-ovarian ligament. This was doubly clamped. A Harmonic scalpel was used to transect the segment followed by a [id number] in a free tie. Good hemostasis was noted. The uterine artery was then skeletonized. The uterine artery was double clamped, ligated with the Harmonic and then suture ligated with 0 Vicryl. Attention was then turned to the right tube and ovary. A window was made in the posterior leaf of the right broad ligament. A hysterectomy clamp was placed across the infundibulopelvic ligament. The Harmonic was used to transect the pedicle and then a [id number] followed by a free tie of 0 Vicryl was placed. Multiple serial clamps were then placed. These were clamped, cut and suture ligated. A supracervical hysterectomy was performed. The uterus was amputated with the Bovie. The cuff was closed with a running lock 0 chromic. Good hemostasis was noted. A complete abdominal hysterectomy was not performed as there was endometriosis and bowel attached to the cervix and uterosacral ligament. Irrigation was performed. All pedicles were noted to be hemostatic. Moistened abdominal packing was removed. Vane was placed on the pedicle bases. The peritoneum, fascia and rectus muscles were closed en bloc with looped PDS. The subcutaneous layer was closed with 2-0 chromic in three layers. The skin was then closed with kylee. A pressure dressing was placed. Counts were correct. The patient tolerated the procedure well. Sharon Bay MD PE/ALICIA /1:38 PM /3:21 PM JIM
[2016-08-16 16:00] VITALS: BP 164/80; PULSE 51; RESP 17; TEMP 96.4; O2SAT 95
[2016-08-16 19:45] VITALS: O2SAT 99
[2016-08-16 20:00] VITALS: BP_SYST 170; BP_DIAS 72; BP_DIAS 86; PULSE 56; PULSE 58; RESP 16; RESP 18; TEMP 97.2; TEMP 97.3; O2SAT 100; O2SAT 97
[2016-08-16] MEDS ORDERED: ENOXAPARIN SODIUM 100 MG/ML SYRINGE SQ SCH (20:00)
[2016-08-16 21:00] VITALS: BP 138/80; PULSE 83; RESP 16
[2016-08-16] MEDS ORDERED: DOCUSATE SODIUM 100 MG CAP PO PRN (21:00)
[2016-08-16] MEDS ORDERED: WARFARIN SOD 10 MG TAB PO ONE (21:00)
[2016-08-16] MEDS: ENOXAPARIN SODIUM 100 MG/ML SYRINGE SQ SCH (21:03)
[2016-08-16] MEDS: diphenhydrAMINE HCL 25 MG CAP PO PRN (21:04)
[2016-08-17] VITALS (8 sets, daily range): BP systolic 128–170; BP diastolic 60–89; PULSE 52–78; RESP 16–20; TEMP 96.5–97.9; O2SAT 96–100
[2016-08-17] MEDS: ACETAMINOPHEN/HYDROcodone 325 MG/10 MG TAB PO PRN ×2 (00:52→05:23)
[2016-08-17 05:13] LABS: AUTOMATED NEUTROPHIL # 12.8 TH/MM3 (1.8-7.7); BASOPHIL # 0.1 TH/MM3 (0-0.2); BASOPHIL % 0.4 % (0.0-2.0); HEMATOCRIT 32.9 % (35.0-46.0); LYMPH % 7.4 % (9.0-44.0); LYMPHOCYTE # 1.1 TH/MM3 (1.0-4.8); MEAN CORPUSCULAR HEMOGLOBIN 20.7 PG (27.0-34.0); MEAN CORPUSCULAR HGB CONC 30.4 % (32.0-36.0); MONO % 6.3 % (0.0-8.0); NEUT % 85.9 % (16.0-70.0); PLATELET COUNT 459 TH/MM3 (150-450); RED BLOOD COUNT 4.83 MIL/MM3 (4.00-5.30); RED CELL DISTRIBUTION WIDTH 30.7 % (11.6-17.2); WHITE BLOOD COUNT 14.9 TH/MM3 (4.0-11.0)
[2016-08-17 05:21] LABS: HEMO FLAGS AUTO DIFF
[2016-08-17] MEDS: levETIRAcetam 250 MG TAB PO SCH ×3 (05:23→22:05)
[2016-08-17] MEDS: SODIUM CHLOR 0.45% 1000 ML INJ 1,000 ML IV SCH ×2 (05:24→16:15)
[2016-08-17] MEDS: PCA - TOTAL MG MORPHINE DELIVERED PER SHIFT SCH (05:25)
[2016-08-17] MEDS: LACTATED RINGER'S 1000 ML INJ 1,000 ML IV SCH ×2 (05:26→17:51)
[2016-08-17 05:29] LABS: INTERNATIONAL NORMALIZED RATIO 1.9 RATIO; PROTHROMBIN TIME - PATIENT 22.1 SEC (9.8-11.6)
[2016-08-17 06:27] LABS: KERATOCYTES OCC (NORMAL); OVALOCYTES 1+ (NORMAL); PLATELET ESTIMATE SMEAR NORMAL (NORMAL); PLATELET MORPHOLOGY NORMAL (NORMAL); SCAN/DIFF AUTO DIFF CONFIRMED; TARGET CELLS 1+ (NORMAL)
[2016-08-17] MEDS: SODIUM CHLORIDE 0.9% FLUSH 5 ML FLUSH FLUSH SCH ×2 (08:21→20:13)
[2016-08-17] MEDS: ENOXAPARIN SODIUM 100 MG/ML SYRINGE SQ SCH ×2 (08:21→20:13)
--- NOTE | 2016-08-17 11:29 | HHI.PR ---
Subjective Remarks Pt resting in bed, pleasant, conversant. Anxious re: catheter being removed and having to ambulated to bathroom. Pain well controlled with current IV medications/FARM SERVICE ADVISER pump. Tolerating soft diet. Objective Vital Signs Vital Signs Date Time Temp Pulse Resp B/P Pulse Ox O2 Delivery O2 Flow Rate FiO2 08/17/16 08:00 96.5 52 18 139/77 99 08/17/16 05:25 16 08/17/16 04:00 97.9 53 16 128/71 100 08/17/16 01:00 162/66 08/17/16 00:00 97.2 58 16 170/86 100 08/16/16 21:13 16 08/16/16 21:00 16 08/16/16 20:00 97.2 58 16 170/86 100 08/16/16 20:00 97.3 56 18 170/72 97 08/16/16 19:45 99 Nasal Cannula 2.00 08/16/16 16:00 96.4 51 17 164/80 95 08/16/16 14:00 14 08/16/16 13:45 98.0 55 18 170/90 95 Nasal Cannula 2 08/16/16 13:31 16 08/16/16 13:30 55 14 176/93 100 08/16/16 13:15 50 14 180/87 100 08/16/16 13:00 62 14 157/87 100 08/16/16 12:45 100 16 168/92 99 Nasal Cannula 2 08/16/16 12:38 98.0 79 12 168/92 94 Nasal Cannula 2 I/O 08/16/16 08/16/16 08/16/16 08/17/16 08/17/16 08/17/16 07:00 15:00 23:00 07:00 15:00 23:00 Intake Total 850 ml 3900 ml 693 ml 815 ml Output Total 1150 ml 1550 ml 800 ml Balance 850 ml 2750 ml -857 ml 15 ml Intake Oral 0 ml 120 ml 240 ml IV Total 250 ml 573 ml 575 ml Packed Cells 600 ml Other 3900 ml Output Urine Total 150 ml 1550 ml 800 ml Estimated Blood Loss 500 ml Other 500 ml # Voids 0 # Bowel Movements 0 0 0 Result Diagram: 08/17/16 0350 08/16/16 0200 Objective Remarks Chest is clear, regular rate and rhythm. Abdomen is soft and non-distended. Bandage is dry Ext no CCE. A/P Assessment and Plan Post Op Day 1 s/p exploratory laparotomy, supracervical abdominal hysterectomy ( approx 9# specimen), bilateral salpingectomy, right oophorectomy supportive postop care d/c hernández, encourage ambulation, incentive spirometer use d/c FARM SERVICE ADVISER, schedule oral percocet q4h, adjust as needed for adequate pain control schedule stool softener plan remove bandage tmrw not yet meeting d/c criteria rest of management per primary IM team Vernell Morris MD Aug 17, 2016 11:29
--- NOTE | 2016-08-17 11:55 | HHI.PR ---
Subjective Remarks Says pain is controlled by meds. Minimal bleeding. Says she was up in the chair today. Denies fever or chills. No n/v/d/c. Objective Vitals Vital Signs Date Time Temp Pulse Resp B/P Pulse Ox O2 Delivery O2 Flow Rate FiO2 08/17/16 08:00 96.5 52 18 139/77 99 08/17/16 05:25 16 08/17/16 04:00 97.9 53 16 128/71 100 08/17/16 01:00 162/66 08/17/16 00:00 97.2 58 16 170/86 100 08/16/16 21:13 16 08/16/16 21:00 16 08/16/16 20:00 97.2 58 16 170/86 100 08/16/16 20:00 97.3 56 18 170/72 97 08/16/16 19:45 99 Nasal Cannula 2.00 08/16/16 16:00 96.4 51 17 164/80 95 08/16/16 14:00 14 08/16/16 13:45 98.0 55 18 170/90 95 Nasal Cannula 2 08/16/16 13:31 16 08/16/16 13:30 55 14 176/93 100 08/16/16 13:15 50 14 180/87 100 08/16/16 13:00 62 14 157/87 100 08/16/16 12:45 100 16 168/92 99 Nasal Cannula 2 08/16/16 12:38 98.0 79 12 168/92 94 Nasal Cannula 2 I/O 08/16/16 08/16/16 08/16/16 08/17/16 08/17/16 08/17/16 06:59 14:59 22:59 06:59 14:59 22:59 Intake Total 1310 ml 3900 ml 573 ml 935 ml Output Total 550 ml 1150 ml 2350 ml Balance 760 ml 2750 ml 573 ml -1415 ml Intake Oral 460 ml 0 ml 360 ml IV Total 250 ml 573 ml 575 ml Packed Cells 600 ml Other 3900 ml Output Urine Total 550 ml 150 ml 2350 ml Estimated Blood Loss 500 ml Other 500 ml # Voids 0 # Bowel Movements 0 0 0 Result Diagram: 08/17/16 0350 08/16/16 0200 Imaging Last Impressions Abdomen/Pelvis CT 08/12/16 0000 Signed Impressions: Service Date/Time: Friday, August 12, 2016 05:51 - CONCLUSION: 1. Large pelvic mass filling the majority of the pelvis and extending into the lower abdomen. Differential diagnosis includes uterine tumors and possible ovarian masses. 2. Right retroperitoneal adenopathy. 3. Moderate right hydronephrosis. Jay Euceda MD Objective Remarks GENERAL: This is a well-nourished, well-developed patient, in no apparent distress. SKIN: No rashes, ecchymoses or lesions. Cool and dry. HEAD: Atraumatic. Normocephalic. No temporal or scalp tenderness. EYES: Pupils equal round and reactive. Extraocular motions intact. No scleral icterus. No injection or drainage. ENT: Nose without bleeding, purulent drainage or septal hematoma. Throat without erythema, tonsillar hypertrophy or exudate. Uvula midline. Airway patent. NECK: Trachea midline. No JVD or lymphadenopathy. Supple, nontender, no meningeal signs. CARDIOVASCULAR: Regular rate and rhythm without murmurs, gallops, or rubs. RESPIRATORY: Clear to auscultation. Breath sounds equal bilaterally. No wheezes , rales, or rhonchi. GASTROINTESTINAL: Abdomen soft, mid abdomen postsurgical with dressing on c/d/ i. No hepato-splenomegaly. No guarding. MUSCULOSKELETAL: Extremities without clubbing, cyanosis, or edema. No joint tenderness, effusion, or edema noted. No calf tenderness. Negative Homans sign bilaterally. NEUROLOGICAL: Awake and alert. Cranial nerves II through XII intact. Motor and sensory grossly within normal limits. Five out of 5 muscle strength in all muscle groups. Normal speech. A/P Problem List: (1) Hydronephrosis of right kidney ICD Code: N13.30 Status: Chronic Assessment and Plan 36-year-old woman with: Abdominal pain. Nausea and vomiting. Large pelvic mass Severe iron deficiency anemia. Received venofer. Continue PO iron supplement. CT abd/pelvis reviewed, findings discussed with ED physician. 1. Large pelvic mass filling the majority of the pelvis and extending into the lower abdomen. Differential diagnosis includes uterine tumors and possible ovarian masses. 2. Right retroperitoneal adenopathy. 3. Moderate right hydronephrosis. Consult relationship counselor and urology. Pain meds per pain scale. Start dicyclomine as need. IVF Tolerated diet Antiemetics as need Per Patent Engineer patient needs surgery , case management to help find a physician who takes patient insurance. Discussed with the CM. Per urology if plan for surgery within a month patient doesn't need a stent placed, however if surgery is postponed for > 1 month patient needs stent placed. Discussed with the patient and [place] boatman service Plan for surgery per Patent Engineer tomorrow 08/16 H/H is low and in light of surgery patient received 3U PRBC before surgery , and have 3 on hold per SCRAP METAL PROCESSING WORKER. Premedicated. Monitor H/H stble S/P pelvic mass removal today 08/16/16 May restart coumadin and lovenox full dose bridge for anticoagulation 08/16 at night, discussed with the surgeon Monitor INR. Pharmacy consult for coumadin. Monitor H/H , stable postsurgical Hydronephrosis. Poss 2/2 mechanical obstruction by large pelvic mass. Urology consulted. Per urology if plan for surgery within a month patient doesn't need a stent placed, however if surgery is postponed for > 1 month patient needs stent placed. Plan for surgery for pelvic mass removal and doesn't need stent Anemia of blood loss: monitor H&H, appears at baseline. Check iron panel. With severe iron deficiency. H/H so far stable. No need to transfuse at this time. Start venofer IV. H.H low and in light of surgery 08/16 and removal of large mass will transfuse3 U pRBCs today and have 3 on hold for surgery / Type and cross. H/H so far stable, had minimal blood loss during the surgery. DUB/Menorrhagia/fibroids: s/p endometrial ablation and D&C on 06/25/16; Receives Depo-Provera; gynecology was consulted H/o CVA (x2). Hold Coumadin as INR is supratherapeutic and in light of surgery. Patient has history of CVA. Monitor INR/PT Supraterapeutic INR of 4.1 on admission. Hold coumadin. Hypokalemia. Check mag . Replace and monitor. Seizure disorder: Resume Keppra. DVT prophylaxis: SCDs/TEDs. Discussed Condition With nurse, patient, Dr Bay portable trackman Discharge Planning Pending improvement and clearance from consultants. Marycruz Ba MD Aug 17, 2016 11:55
[2016-08-17] MEDS: oxyCODONE/ACETAMINOPHEN 5 MG/325 MG TAB PO SCH ×4 (12:49→23:57)
[2016-08-17] MEDS: IRON SUCROSE INJ 200 MG in SODIUM CHLORIDE 0.9% INJ 100 ML IV SCH (12:49)
[2016-08-17] MEDS: diphenhydrAMINE HCL 25 MG CAP PO PRN (17:48)
[2016-08-17] MEDS: SENNOSIDES 8.6 MG TAB PO SCH (20:10)
[2016-08-17] MEDS: DOCUSATE SODIUM 100 MG CAP PO SCH (20:10)
[2016-08-17] MEDS: HYDROmorphone HCL PF 1 MG/ML VIAL IV PRN (22:04)
[2016-08-18] VITALS: BP 134/64; PULSE 75; RESP 17; TEMP 97.6; O2SAT 99
[2016-08-18] MEDS: SODIUM CHLOR 0.45% 1000 ML INJ 1,000 ML IV SCH ×3 (02:15→22:15)
[2016-08-18] MEDS: oxyCODONE/ACETAMINOPHEN 5 MG/325 MG TAB PO SCH ×4 (04:06→16:36)
[2016-08-18] MEDS: levETIRAcetam 250 MG TAB PO SCH ×3 (06:18→20:24)
[2016-08-18] MEDS: HYDROmorphone HCL PF 1 MG/ML VIAL IV PRN ×2 (06:18→18:22)
[2016-08-18 08:00] VITALS: BP 134/65; PULSE 56; RESP 17; TEMP 97.3; O2SAT 99
[2016-08-18] MEDS: SENNOSIDES 8.6 MG TAB PO SCH ×2 (08:05→20:24)
[2016-08-18] MEDS: DOCUSATE SODIUM 100 MG CAP PO SCH ×2 (08:05→20:24)
[2016-08-18] MEDS: ENOXAPARIN SODIUM 100 MG/ML SYRINGE SQ SCH ×2 (08:06→20:25)
[2016-08-18] MEDS: SODIUM CHLORIDE 0.9% FLUSH 5 ML FLUSH FLUSH SCH ×2 (08:06→20:25)
[2016-08-18] MEDS: LACTATED RINGER'S 1000 ML INJ 1,000 ML IV SCH ×2 (08:07→20:27)
[2016-08-18 11:03] LABS: INTERNATIONAL NORMALIZED RATIO 2.1 RATIO; PROTHROMBIN TIME - PATIENT 23.5 SEC (9.8-11.6)
[2016-08-18 11:04] LABS: AUTOMATED NEUTROPHIL # 9.9 TH/MM3 (1.8-7.7); BASOPHIL % 0.4 % (0.0-2.0); EOSINOPHIL # 0.1 TH/MM3 (0-0.4); EOSINOPHIL % 0.9 % (0.0-4.0); LYMPHOCYTE # 1.2 TH/MM3 (1.0-4.8); MEAN CELL VOLUME 68.6 FL (80.0-100.0); MEAN CORPUSCULAR HEMOGLOBIN 20.9 PG (27.0-34.0); MEAN CORPUSCULAR HGB CONC 30.4 % (32.0-36.0); MONO % 7.4 % (0.0-8.0); NEUT % 81.3 % (16.0-70.0); PLATELET COUNT 426 TH/MM3 (150-450); RED BLOOD COUNT 4.96 MIL/MM3 (4.00-5.30); RED CELL DISTRIBUTION WIDTH 31.9 % (11.6-17.2); WHITE BLOOD COUNT 12.1 TH/MM3 (4.0-11.0)
[2016-08-18 11:08] LABS: HEMO FLAGS AUTO DIFF
[2016-08-18 11:26] LABS: POTASSIUM 3.3 MEQ/L (3.5-5.1)
[2016-08-18 12:00] VITALS: BP 143/76; PULSE 59; RESP 17; TEMP 97; O2SAT 98
--- NOTE | 2016-08-18 12:17 | HHI.PR ---
Subjective Remarks Passed gas, did ot have a BM yet. Has abdominal pain, controlled by meds. No n/v/d. Was up in the chair. No fevers or chills. Objective Vitals Vital Signs Date Time Temp Pulse Resp B/P Pulse Ox O2 Delivery O2 Flow Rate FiO2 08/18/16 08:00 97.3 56 17 134/65 99 08/18/16 00:00 97.6 75 17 134/64 99 08/17/16 20:06 97 21 08/17/16 20:00 97.4 78 20 129/60 99 08/17/16 16:00 97.8 71 17 140/89 97 I/O 08/17/16 08/17/16 08/17/16 08/18/16 08/18/16 08/18/16 07:00 15:00 23:00 07:00 15:00 23:00 Intake Total 815 ml 982 ml 420 ml 705 ml Output Total 800 ml 800 ml 300 ml 1000 ml Balance 15 ml 182 ml 120 ml -295 ml Intake Oral 240 ml 300 ml 240 ml 240 ml IV Total 575 ml 682 ml 180 ml 465 ml Output Urine Total 800 ml 800 ml 300 ml 1000 ml # Bowel Movements 0 0 0 0 # Sanitary Pads 1 Pads 1 Pads Result Diagram: 08/18/16 1036 08/18/16 1036 Imaging Last Impressions Abdomen/Pelvis CT 08/12/16 0000 Signed Impressions: Service Date/Time: Friday, August 12, 2016 05:51 - CONCLUSION: 1. Large pelvic mass filling the majority of the pelvis and extending into the lower abdomen. Differential diagnosis includes uterine tumors and possible ovarian masses. 2. Right retroperitoneal adenopathy. 3. Moderate right hydronephrosis. Jay Euceda MD Objective Remarks GENERAL: This is a well-nourished, well-developed patient, in no apparent distress. SKIN: No rashes, ecchymoses or lesions. Cool and dry. HEAD: Atraumatic. Normocephalic. No temporal or scalp tenderness. EYES: Pupils equal round and reactive. Extraocular motions intact. No scleral icterus. No injection or drainage. ENT: Nose without bleeding, purulent drainage or septal hematoma. Throat without erythema, tonsillar hypertrophy or exudate. Uvula midline. Airway patent. NECK: Trachea midline. No JVD or lymphadenopathy. Supple, nontender, no meningeal signs. CARDIOVASCULAR: Regular rate and rhythm without murmurs, gallops, or rubs. RESPIRATORY: Clear to auscultation. Breath sounds equal bilaterally. No wheezes , rales, or rhonchi. GASTROINTESTINAL: Abdomen soft, mid abdomen postsurgical with dressing on c/d/ i. No hepato-splenomegaly. No guarding. MUSCULOSKELETAL: Extremities without clubbing, cyanosis, or edema. No joint tenderness, effusion, or edema noted. No calf tenderness. Negative Homans sign bilaterally. NEUROLOGICAL: Awake and alert. Cranial nerves II through XII intact. Motor and sensory grossly within normal limits. Five out of 5 muscle strength in all muscle groups. Normal speech. A/P Problem List: (1) Hydronephrosis of right kidney ICD Code: N13.30 Status: Chronic Assessment and Plan 36-year-old woman with: Abdominal pain. Nausea and vomiting. Large pelvic mass Severe iron deficiency anemia. Received venofer. Continue PO iron supplement. CT abd/pelvis reviewed, findings discussed with ED physician. 1. Large pelvic mass filling the majority of the pelvis and extending into the lower abdomen. Differential diagnosis includes uterine tumors and possible ovarian masses. 2. Right retroperitoneal adenopathy. 3. Moderate right hydronephrosis. Consult biology tutor and urology. Pain meds per pain scale. Start dicyclomine as need. IVF Tolerated diet Antiemetics as need Per Clinic Director patient needs surgery , case management to help find a physician who takes patient insurance. Discussed with the CM. Per urology if plan for surgery within a month patient doesn't need a stent placed, however if surgery is postponed for > 1 month patient needs stent placed. Discussed with the patient and associate principal service Plan for surgery per Clinic Director tomorrow 08/16 H/H is low and in light of surgery patient received 3U PRBC before surgery , and have 3 on hold per CLINIC DIRECTOR. Premedicated. Monitor H/H stble S/P pelvic mass removal today 08/16/16 May restart coumadin and lovenox full dose bridge for anticoagulation 08/16 at night, discussed with the surgeon Monitor INR. Pharmacy consult for coumadin. Monitor H/H , stable postsurgical Constipation: Bowel regimen. Stool softeners/laxatives. Hydronephrosis. Poss 2/2 mechanical obstruction by large pelvic mass. Urology consulted. Per urology if plan for surgery within a month patient doesn't need a stent placed, however if surgery is postponed for > 1 month patient needs stent placed. Plan for surgery for pelvic mass removal and doesn't need stent. Uro signed off. Anemia of blood loss: monitor H&H, appears at baseline. Check iron panel. With severe iron deficiency. H/H so far stable. No need to transfuse at this time. Start venofer IV. H.H low and in light of surgery 08/16 and removal of large mass will transfuse3 U pRBCs today and have 3 on hold for surgery / Type and cross. H/H so far stable, had minimal blood loss during the surgery. DUB/Menorrhagia/fibroids: s/p endometrial ablation and D&C on 06/25/16; Receives Depo-Provera; gynecology was consulted H/o CVA (x2). Hold Coumadin as INR is supratherapeutic and in light of surgery. Patient has history of CVA. Monitor INR/PT Supraterapeutic INR of 4.1 on admission. Hold coumadin. Hypokalemia. Check mag . Replace and monitor. Seizure disorder: Resume Keppra. DVT prophylaxis: SCDs/TEDs. Discussed Condition With nurse, patient DC when improved and cleared by surgery Discharge Planning Pending improvement and clearance from consultants. Marycruz Ba MD Aug 18, 2016 12:17
[2016-08-18] MEDS ORDERED: MAGNESIUM HYDROXIDE SUSP 30 ML CUP PO PRN (12:30)
[2016-08-18] MEDS ORDERED: DOCUSATE SODIUM 50 MG/SENNA 8.6 MG TAB PO PRN (12:30)
[2016-08-18] MEDS ORDERED: POTASSIUM CHLORIDE 10 MEQ CONTROLLED RELEASE TAB PO ONE (12:30)
[2016-08-18] MEDS ORDERED: BISACODYL 10 MG SUPP PR PRN (12:30)
[2016-08-18 14:32] LABS: POLYCHROMASIA 2.2 % (0.0-1.9); SCAN/DIFF AUTO DIFF CONFIRMED; STOMATOCYTES 1+ (NORMAL); TARGET CELLS 1+ (NORMAL); TEARDROP RBCS 1+ (NORMAL)
[2016-08-18 16:00] VITALS: BP 174/77; PULSE 58; RESP 18; TEMP 97.2; O2SAT 98
[2016-08-18] MEDS: guaiFENesin/CODEINE SYRUP 200 MG/20 MG/10 ML CUP PO PRN (16:36)
--- NOTE | 2016-08-18 17:49 | HHI.PR ---
Subjective Remarks Eating well, passing flatus. She has only walked twice today. has been laying in bed most of day. Still complaining of pain, taking percocet q 4 hr with one dose of dilaudid today. FLOATING OPERATOR d/c yesterday. Objective Vital Signs Vital Signs Date Time Temp Pulse Resp B/P Pulse Ox O2 Delivery O2 Flow Rate FiO2 08/18/16 16:00 97.2 58 18 174/77 98 08/18/16 12:00 97.0 59 17 143/76 98 08/18/16 08:00 97.3 56 17 134/65 99 08/18/16 00:00 97.6 75 17 134/64 99 08/17/16 20:06 97 21 08/17/16 20:00 97.4 78 20 129/60 99 I/O 08/17/16 08/17/16 08/17/16 08/18/16 08/18/16 08/18/16 07:00 15:00 23:00 07:00 15:00 23:00 Intake Total 815 ml 982 ml 420 ml 705 ml 340 ml Output Total 800 ml 800 ml 300 ml 1000 ml 900 ml Balance 15 ml 182 ml 120 ml -295 ml -560 ml Intake Oral 240 ml 300 ml 240 ml 240 ml 340 ml IV Total 575 ml 682 ml 180 ml 465 ml Output Urine Total 800 ml 800 ml 300 ml 1000 ml 900 ml # Bowel Movements 0 0 0 0 0 # Sanitary Pads 1 Pads 1 Pads Result Diagram: 08/18/16 1036 08/18/16 1036 Objective Remarks Chest is clear, regular rate and rhythm. Abdomen is soft and non-distended. Hypoactive bowel sounds Bandage removed, incision with kylee in place, clean/dry/intact. Ext no CCE. A/P Assessment and Plan Post Op Day 2 s/p exploratory laparotomy, supracervical abdominal hysterectomy ( approx 9# specimen), bilateral salpingectomy, right oophorectomy supportive postop care voiding without difficulty, min vag bleeding. encourage ambulation at least 3 times a day, oob to chair, incentive spirometer use. needs scd if not ambulating d/c FLOATING OPERATOR yesterday, schedule oral percocet q4h,will change to prn schedule stool softener, discussed need for ambulation to improve bowel function ; she is passing flatus, no bm yet Bandaged removed today, nursing order to replace dressing not yet meeting d/c criteria rest of management per primary IM team Jenifer Bay MD Aug 18, 2016 17:49
[2016-08-18 20:00] VITALS: BP 134/65; PULSE 56; RESP 20; TEMP 96; O2SAT 98
[2016-08-18] MEDS ORDERED: oxyCODONE/ACETAMINOPHEN 5 MG/325 MG TAB PO PRN (20:00)
[2016-08-18] MEDS: oxyCODONE/ACETAMINOPHEN 10 MG/325 MG TAB PO PRN (20:24)
[2016-08-18] MEDS: BISACODYL 10 MG SUPP PR SCH (20:26)
[2016-08-18] MEDS: diphenhydrAMINE HCL 25 MG CAP PO PRN (23:50)
[2016-08-19] VITALS: BP 135/74; PULSE 58; RESP 18; TEMP 96.8; O2SAT 96
[2016-08-19] MEDS: oxyCODONE/ACETAMINOPHEN 10 MG/325 MG TAB PO PRN ×3 (00:21→11:56)
[2016-08-19] MEDS: guaiFENesin/CODEINE SYRUP 200 MG/20 MG/10 ML CUP PO PRN (03:42)
[2016-08-19] MEDS: levETIRAcetam 250 MG TAB PO SCH (05:29)
[2016-08-19 05:54] LABS: INTERNATIONAL NORMALIZED RATIO 1.4 RATIO; PROTHROMBIN TIME - PATIENT 15.4 SEC (9.8-11.6)
[2016-08-19 08:00] VITALS: BP 145/68; PULSE 66; RESP 17; TEMP 98.1; O2SAT 95
[2016-08-19] MEDS: DOCUSATE SODIUM 100 MG CAP PO SCH (08:26)
[2016-08-19] MEDS: SENNOSIDES 8.6 MG TAB PO SCH (08:26)
[2016-08-19] MEDS: ENOXAPARIN SODIUM 100 MG/ML SYRINGE SQ SCH (08:26)
[2016-08-19] MEDS: SODIUM CHLORIDE 0.9% FLUSH 5 ML FLUSH FLUSH SCH (08:26)
[2016-08-19] MEDS: BISACODYL 10 MG SUPP PR SCH (08:26)
--- NOTE | 2016-08-19 10:13 | HHI.DCPOC ---
Discharge Care Plan Goals to Promote Your Health * To prevent worsening of your condition and complications * To maintain your health at the optimal level Directions to Meet Your Goals Take your medications as prescribed Follow your dietary instruction Follow activity as directed Keep your appointments as scheduled Take your immunizations and boosters as scheduled If your symptoms worsen call your PCP, if no PCP go to Urgent Care Center or Emergency Room Smoking is Dangerous to Your Health. Avoid second hand smoke Call the 24-hour hour crisis hotline for domestic abuse at Marycruz Ba MD Aug 19, 2016 10:13
--- NOTE | 2016-08-19 10:14 | HHI.DS ---
Discharge Summary Admission Date Aug 12, 2016 at 07:23 Discharge Date: Aug 19, 2016 Admitting Diagnosis hydronephrosis secondary to large pelvic mass (1) Hydronephrosis of right kidney ICD Code: N13.30 Diagnosis: Principal (2) Hydroureter ICD Code: N13.4 Diagnosis: Principal (3) Menorrhagia ICD Code: N92.0 Diagnosis: Principal (4) Pelvic mass ICD Code: R19.00 Diagnosis: Principal (5) Anemia associated with acute blood loss ICD Code: D62 Diagnosis: Principal (6) CVA (cerebral infarction) ICD Code: I63.9 Diagnosis: Secondary (7) Anticoagulated on Coumadin ICD Code: Z51.81 Diagnosis: Principal (8) GERD (gastroesophageal reflux disease) ICD Code: K21.9 Diagnosis: Secondary (9) Anemia ICD Code: D64.9 Diagnosis: Principal (10) Seizures ICD Code: R56.9 Diagnosis: Secondary (11) Dyslipidemia, goal to be determined ICD Code: E78.4 Diagnosis: Secondary (12) Hypertension ICD Code: I10 Diagnosis: Secondary Procedures s/p exploratory laparotomy, supracervical abdominal hysterectomy (approx 9# specimen), bilateral salpingectomy, right oophorectomy by Dr Orellana route cdl driver on 08/16/16 Brief History - From Admission Patient is a 36-year-old female with h/o CVA x2, seizures, Dysfunctional vaginal bleeding, anemia, who came to the ED complaining of severe abdominal pain. She says she has been having cramps for the past 2 days, currently keeping her from sleep. She says she had a D and C performed early June, and since then she has had episodes of cramping, however this is the worst pain she has had. She also has vaginal bleeding and change pads 6 times per day. Says she doesn't have abundant bleeding however. She reports nausea as well as vomiting. She denies fever or chills. She says she is having normal bowel movements. She denies any dysuria. She says the pain is all over her abdomen. She is currently starting her menstrual period. She does follow with silverware washer specialist as OP. She denies currently any nausea and vomiting. CBC/BMP: 08/18/16 1036 08/18/16 1036 Significant Findings Laboratory Tests Test 08/17/16 08/18/16 08/19/16 03:50 10:36 04:59 White Blood Count 14.9 TH/MM3 12.1 TH/MM3 (4.0-11.0) (4.0-11.0) Hemoglobin 10.0 GM/DL 10.3 GM/DL (11.6-15.3) (11.6-15.3) Hematocrit 32.9 % 34.0 % (35.0-46.0) (35.0-46.0) Mean Corpuscular Volume 68.0 FL 68.6 FL (80.0-100.0) (80.0-100.0) Mean Corpuscular Hemoglobin 20.7 PG 20.9 PG (27.0-34.0) (27.0-34.0) Mean Corpuscular Hemoglobin 30.4 % 30.4 % Concent (32.0-36.0) (32.0-36.0) Red Cell Distribution Width 30.7 % 31.9 % (11.6-17.2) (11.6-17.2) Platelet Count 459 TH/MM3 (150-450) Neutrophils (%) (Auto) 85.9 % 81.3 % (16.0-70.0) (16.0-70.0) Lymphocytes (%) (Auto) 7.4 % (9.0-44.0) Neutrophils # (Auto) 12.8 TH/MM3 9.9 TH/MM3 (1.8-7.7) (1.8-7.7) Target Cells 1+ (NORMAL) 1+ (NORMAL) Ovalocytes 1+ (NORMAL) Keratocytes OCC (NORMAL) Prothrombin Time 22.1 SEC 23.5 SEC 15.4 SEC (9.8-11.6) (9.8-11.6) (9.8-11.6) Polychromasia 2.2 % (0.0-1.9) Tear Drop Cells 1+ (NORMAL) Stomatocytes 1+ (NORMAL) Potassium Level 3.3 MEQ/L (3.5-5.1) Blood Urea Nitrogen 2 MG/DL (7-18) Imaging Last Impressions Abdomen/Pelvis CT 08/12/16 0000 Signed Impressions: Service Date/Time: Friday, August 12, 2016 05:51 - CONCLUSION: 1. Large pelvic mass filling the majority of the pelvis and extending into the lower abdomen. Differential diagnosis includes uterine tumors and possible ovarian masses. 2. Right retroperitoneal adenopathy. 3. Moderate right hydronephrosis. Jay Euceda MD PE at Discharge GENERAL: This is a well-nourished, well-developed patient, in no apparent distress. SKIN: No rashes, ecchymoses or lesions. Cool and dry. HEAD: Atraumatic. Normocephalic. No temporal or scalp tenderness. EYES: Pupils equal round and reactive. Extraocular motions intact. No scleral icterus. No injection or drainage. ENT: Nose without bleeding, purulent drainage or septal hematoma. Throat without erythema, tonsillar hypertrophy or exudate. Uvula midline. Airway patent. NECK: Trachea midline. No JVD or lymphadenopathy. Supple, nontender, no meningeal signs. CARDIOVASCULAR: Regular rate and rhythm without murmurs, gallops, or rubs. RESPIRATORY: Clear to auscultation. Breath sounds equal bilaterally. No wheezes , rales, or rhonchi. GASTROINTESTINAL: Abdomen soft, mid abdomen postsurgical with dressing on c/d/ i. No hepato-splenomegaly. No guarding. MUSCULOSKELETAL: Extremities without clubbing, cyanosis, or edema. No joint tenderness, effusion, or edema noted. No calf tenderness. Negative Homans sign bilaterally. NEUROLOGICAL: Awake and alert. Cranial nerves II through XII intact. Motor and sensory grossly within normal limits. Five out of 5 muscle strength in all muscle groups. Normal speech. Hospital Course 36-year-old woman with: Abdominal pain. Nausea and vomiting. Large pelvic mass Severe iron deficiency anemia. Received venofer. Continue PO iron supplement. CT abd/pelvis reviewed, findings discussed with ED physician. 1. Large pelvic mass filling the majority of the pelvis and extending into the lower abdomen. Differential diagnosis includes uterine tumors and possible ovarian masses. 2. Right retroperitoneal adenopathy. 3. Moderate right hydronephrosis. s/p exploratory laparotomy, supracervical abdominal hysterectomy (approx 9# specimen), bilateral salpingectomy, right oophorectomy by Dr Esquival route cdl driver on 08/16/16 Consult silverware washer and urology. Pain meds per pain scale. Start dicyclomine as need. IVF Tolerated diet Antiemetics as need Per Assistant Production Editor patient needs surgery , case management to help find a physician who takes patient insurance. Discussed with the CM. Per urology if plan for surgery within a month patient doesn't need a stent placed, however if surgery is postponed for > 1 month patient needs stent placed. Discussed with the patient and office support assistant service Plan for surgery per Assistant Production Editor tomorrow 08/16 H/H is low and in light of surgery patient received 3U PRBC before surgery , and have 3 on hold per [facility]. Premedicated. Monitor H/H stble S/P pelvic mass removal 08/16/16 May restart coumadin and lovenox full dose bridge for anticoagulation 08/16 at night, discussed with the surgeon Monitor INR. Pharmacy consult for coumadin. Monitor H/H , stable postsurgical Constipation: Bowel regimen. Stool softeners/laxatives. Hydronephrosis. Poss 2/2 mechanical obstruction by large pelvic mass. Urology consulted. Per urology if plan for surgery within a month patient doesn't need a stent placed, however if surgery is postponed for > 1 month patient needs stent placed. Plan for surgery for pelvic mass removal and doesn't need stent. Uro signed off. Anemia of blood loss: monitor H&H, appears at baseline. Check iron panel. With severe iron deficiency. H/H so far stable. No need to transfuse at this time. Start venofer IV. H.H low and in light of surgery 08/16 and removal of large mass will transfuse3 U pRBCs today and have 3 on hold for surgery / Type and cross. H/H so far stable, had minimal blood loss during the surgery. DUB/Menorrhagia/fibroids: s/p endometrial ablation and D&C on 06/25/16; Receives Depo-Provera; gynecology was consulted H/o CVA (x2). Hold Coumadin as INR is supratherapeutic and in light of surgery. Patient has history of CVA. Monitor INR/PT Supraterapeutic INR of 4.1 on admission. INR at discharge is subtherapeutic. Patient will have lovenox at home until INR is terapeutic. Also will have home health nurses to follow up. To f/u with PCp and consultants as OP. Hypokalemia. Check mag . Replace and monitor. Seizure disorder: Resume Keppra. Patient improved significantly, was dc home with home health in fairly well condition. Was cleared for DC by consultants to follow up as OP with PCP and ob/ silverware washer. Pt Condition on Discharge: Fair Discharge Disposition: Disch w/ Home Health Serv Discharge Time: > 30 minutes Discharge Instructions DIET: Follow Instructions for: Heart Healthy Diet Activities you can perform: Regular-No Restrictions Follow up Referrals: [facility] - 1 Week @ [facility] [employer] [facility] with Jenifer Bay MD PCP Follow-up - 3-5 Days New Medications: Docusate Sodium (Colace) 100 Mg Cap 100 MG PO BID Constipation #60 Ref 0 CAP Enoxaparin Inj (Enoxaparin Inj) 100 Mg/Ml Syr 100 MG SQ BID Blood Clot Prevention #30 Ref 0 SYRINGE Ferrous Sulfate (Ferrous Sulfate) 325 Mg Tab 325 MG PO BID Nutritional Supplement #60 Ref 0 TAB Oxycodone-Acetaminophen (Oxycodone-Acetaminophen) 5-325 mg Tab 1 TAB PO Q4H PRN pain 1-5 #40 TAB Continued Medications: Levetiracetam (Keppra) 250 Mg Tab 250 MG PO TID Control Seizures #60 Ref 0 TAB Methocarbamol (Methocarbamol) 750 Mg Tab 750 MG PO HS PRN Muscle Spasm #120 Ref 0 TAB Warfarin (Coumadin) 10 Mg Tab 10 MG PO DAILY Prevent Blood Clot #30 Ref 0 TAB Marycruz Ba MD Aug 19, 2016 10:14
[2016-08-19] MEDS ORDERED: COLA100C3 PO (10:17)
[2016-08-19] MEDS ORDERED: HYDR-4107 PO (10:17)
--- NOTE | 2016-08-19 10:18 | HHI.FF ---
Face to Face Verification Diagnosis: (1) Atrial fibrillation (2) Dysfunctional uterine bleeding (3) Menorrhagia (4) Pelvic mass (5) Endometriosis (6) Hydronephrosis of right kidney (7) Symptomatic anemia (8) Fibroids (9) UTI (lower urinary tract infection) (10) CVA (cerebral infarction) (11) Anticoagulated on Coumadin (12) GERD (gastroesophageal reflux disease) (13) Seizures (14) Anemia (15) Dyslipidemia, goal to be determined (16) Hypertension Physical Therapy Order: Evaluate and Treat Home Health Nursing Order: Medical education Signs/symptoms of disease process Medication education-adverse effect Nursing assessment with vital signs I have seen patient Sommer Garcia on 08/19/16. My clinical findings support the need for the requested home health care services because: Ltd mobility - disease progression I certify that my clinical findings support that this patient is homebound because: Post-op weakness Marycruz Ba MD Aug 19, 2016 10:18
--- NOTE | 2016-08-19 10:20 | HHI.PR ---
Subjective Remarks Passed gas, did not have a BM yet. No n/v/d/c. Pain is failry controlled by meds Objective Vitals Vital Signs Date Time Temp Pulse Resp B/P Pulse Ox O2 Delivery O2 Flow Rate FiO2 08/19/16 08:00 98.1 66 17 145/68 95 08/19/16 00:00 96.8 58 18 135/74 96 08/18/16 20:00 96.0 56 20 134/65 98 08/18/16 16:00 97.2 58 18 174/77 98 08/18/16 12:00 97.0 59 17 143/76 98 I/O 08/18/16 08/18/16 08/18/16 08/19/16 08/19/16 08/19/16 06:59 14:59 22:59 06:59 14:59 22:59 Intake Total 705 ml 340 ml 240 ml 240 ml Output Total 1000 ml 900 ml 600 ml 300 ml Balance -295 ml -560 ml -360 ml -60 ml Intake Oral 240 ml 340 ml 240 ml 240 ml IV Total 465 ml 0 ml Output Urine Total 1000 ml 900 ml 600 ml 300 ml # Bowel Movements 0 0 0 0 # Sanitary Pads 1 Pads Result Diagram: 08/18/16 1036 08/18/16 1036 Imaging Last Impressions Abdomen/Pelvis CT 08/12/16 0000 Signed Impressions: Service Date/Time: Friday, August 12, 2016 05:51 - CONCLUSION: 1. Large pelvic mass filling the majority of the pelvis and extending into the lower abdomen. Differential diagnosis includes uterine tumors and possible ovarian masses. 2. Right retroperitoneal adenopathy. 3. Moderate right hydronephrosis. Jay Euceda MD Objective Remarks GENERAL: This is a well-nourished, well-developed patient, in no apparent distress. SKIN: No rashes, ecchymoses or lesions. Cool and dry. HEAD: Atraumatic. Normocephalic. No temporal or scalp tenderness. EYES: Pupils equal round and reactive. Extraocular motions intact. No scleral icterus. No injection or drainage. ENT: Nose without bleeding, purulent drainage or septal hematoma. Throat without erythema, tonsillar hypertrophy or exudate. Uvula midline. Airway patent. NECK: Trachea midline. No JVD or lymphadenopathy. Supple, nontender, no meningeal signs. CARDIOVASCULAR: Regular rate and rhythm without murmurs, gallops, or rubs. RESPIRATORY: Clear to auscultation. Breath sounds equal bilaterally. No wheezes , rales, or rhonchi. GASTROINTESTINAL: Abdomen soft, mid abdomen postsurgical with dressing on c/d/ i. No hepato-splenomegaly. No guarding. MUSCULOSKELETAL: Extremities without clubbing, cyanosis, or edema. No joint tenderness, effusion, or edema noted. No calf tenderness. Negative Homans sign bilaterally. NEUROLOGICAL: Awake and alert. Cranial nerves II through XII intact. Motor and sensory grossly within normal limits. Five out of 5 muscle strength in all muscle groups. Normal speech. A/P Problem List: (1) Hydronephrosis of right kidney ICD Code: N13.30 Status: Chronic Assessment and Plan 36-year-old woman with: Abdominal pain. Nausea and vomiting. Large pelvic mass Severe iron deficiency anemia. Received venofer. Continue PO iron supplement. CT abd/pelvis reviewed, findings discussed with ED physician. 1. Large pelvic mass filling the majority of the pelvis and extending into the lower abdomen. Differential diagnosis includes uterine tumors and possible ovarian masses. 2. Right retroperitoneal adenopathy. 3. Moderate right hydronephrosis. Consult obstetrician/gynecologist and urology. Pain meds per pain scale. Start dicyclomine as need. IVF Tolerated diet Antiemetics as need Per Glass Cutting Machine Operator patient needs surgery , case management to help find a physician who takes patient insurance. Discussed with the CM. Per urology if plan for surgery within a month patient doesn't need a stent placed, however if surgery is postponed for > 1 month patient needs stent placed. Discussed with the patient and finger grip machine operator service Plan for surgery per Glass Cutting Machine Operator tomorrow 08/16 H/H is low and in light of surgery patient received 3U PRBC before surgery , and have 3 on hold per [facility]. Premedicated. Monitor H/H stble S/P pelvic mass removal today 08/16/16 May restart coumadin and lovenox full dose bridge for anticoagulation 08/16 at night, discussed with the surgeon Monitor INR. Pharmacy consult for coumadin. Monitor H/H , stable postsurgical Constipation: Bowel regimen. Stool softeners/laxatives. Hydronephrosis. Poss 2/2 mechanical obstruction by large pelvic mass. Urology consulted. Per urology if plan for surgery within a month patient doesn't need a stent placed, however if surgery is postponed for > 1 month patient needs stent placed. Plan for surgery for pelvic mass removal and doesn't need stent. Uro signed off. Anemia of blood loss: monitor H&H, appears at baseline. Check iron panel. With severe iron deficiency. H/H so far stable. No need to transfuse at this time. Start venofer IV. H.H low and in light of surgery 08/16 and removal of large mass will transfuse3 U pRBCs today and have 3 on hold for surgery / Type and cross. H/H so far stable, had minimal blood loss during the surgery. DUB/Menorrhagia/fibroids: s/p endometrial ablation and D&C on 06/25/16; Receives Depo-Provera; gynecology was consulted H/o CVA (x2). Hold Coumadin as INR is supratherapeutic and in light of surgery. Patient has history of CVA. Monitor INR/PT Supraterapeutic INR of 4.1 on admission. Hold coumadin. Hypokalemia. Check mag . Replace and monitor. Seizure disorder: Resume Keppra. DVT prophylaxis: SCDs/TEDs. Discussed Condition With nurse, patient DC when improved and cleared by surgery Discharge Planning Pending improvement and clearance from consultants. Marycruz Ba MD Aug 19, 2016 10:20
[2016-08-19] MEDS ORDERED: OXYC1TAB63 PO (11:59)
--- NOTE | 2016-08-19 12:07 | HHI.FF ---
Face to Face Verification Diagnosis: (1) Pelvic mass (2) Endometriosis (3) Anemia associated with acute blood loss (4) Hydronephrosis of right kidney (5) Symptomatic anemia (6) Atrial fibrillation (7) Fibroids (8) UTI (lower urinary tract infection) (9) CVA (cerebral infarction) (10) GERD (gastroesophageal reflux disease) Home Health Nursing Order: Medical education Signs/symptoms of disease process Medication education-adverse effect Wound care and dressing changes Nursing assessment with vital signs Instructions: Check INR , educate lovenox admnistration, stop lovenox when INR terapeutic 2-3 I have seen patient Sommer Garcia on 08/19/16. My clinical findings support the need for the requested home health care services because: Ltd mobility - disease progression I certify that my clinical findings support that this patient is homebound because: Post-op weakness Marycruz Ba MD Aug 19, 2016 12:07
[2016-08-19] MEDS ORDERED: ENOX100I SQ (12:09)
--- NOTE | 2016-08-19 12:19 | HHI.PR ---
Subjective Remarks Doing well, pain is well controlled, eating well, passing flatus and had bm. Ambulating. Objective Vital Signs Vital Signs Date Time Temp Pulse Resp B/P Pulse Ox O2 Delivery O2 Flow Rate FiO2 08/19/16 08:00 98.1 66 17 145/68 95 08/19/16 00:00 96.8 58 18 135/74 96 08/18/16 20:00 96.0 56 20 134/65 98 08/18/16 16:00 97.2 58 18 174/77 98 I/O 08/18/16 08/18/16 08/18/16 08/19/16 08/19/16 08/19/16 07:00 15:00 23:00 07:00 15:00 23:00 Intake Total 705 ml 340 ml 240 ml 240 ml Output Total 1000 ml 900 ml 600 ml 300 ml Balance -295 ml -560 ml -360 ml -60 ml Intake Oral 240 ml 340 ml 240 ml 240 ml IV Total 465 ml 0 ml Output Urine Total 1000 ml 900 ml 600 ml 300 ml # Bowel Movements 0 0 0 0 # Sanitary Pads 1 Pads Result Diagram: 08/18/16 1036 08/18/16 1036 Objective Remarks Chest is clear, regular rate and rhythm. Abdomen is soft and non-distended. Normoactive bowel sounds Bandage removed, incision with kylee in place, clean/dry/intact vertical midline incision. Ext no CCE. A/P Assessment and Plan Post Op Day 3 s/p exploratory laparotomy, supracervical abdominal hysterectomy ( approx 9# specimen), bilateral salpingectomy, right oophorectomy supportive postop care voiding without difficulty, min vag bleeding. has had bm doing well on percocet prn, rx given. She will need to f/u on Friday for staple removal. Discussed at length appropriate wound care, need for keeping incision clean and dry, daily wound cleaning with soap and water. Discussed ER precaution, wound infection precautions. No heavy lifting, pelvic rest. Rest of care per IM team. Of note: Pt with h/o CVA x2, h/o afib on coumadin- initially presented with supra- therapeutic inr. Coumadin was held until surgery performed. Anticoagulation after surgery has been with therapeutic dose Lovenox with bridge to Coumadin. INR was therapeutic yesterday but not therapeutic today, INR 1.4. Discussed with Dr. Ba INR not currently therapeutic; will leave at her discretion what medication pt is sent home on for anticoagulation. Pt states she does have a doctor that she normally sees for INR monitoring. Dr. Ba states she will re- evaluate pt prior to discharge and decide appropriate next step. Plan discussed with patient, nurse, and Hospitalist. Pt cleared from dry charge process attendant/surgery standpoint for discharge. Jenifer Bay MD Aug 19, 2016 12:19
[2016-08-19] MEDS ORDERED: FERR325T PO (13:29)
[2016-09-11] MEDS ORDERED: BACT800T5 PO (11:08)
[2016-09-11] MEDS ORDERED: OXYC1TAB63 PO (11:08)
[2016-09-24] MEDS ORDERED: LEVE250 PO (13:08)
[2016-11-04] MEDS ORDERED: COUM10TA PO (14:43)
[2016-11-07] MEDS ORDERED: COUM10TA PO (13:38)
== END 2016-08-19 13:24 | disposition home or self-care (01) | DRG 742 ==
LOC: NEPE 04:54 → NEDA 07:22 → OBSVTOIN 07:23 → NEPHCDU 13:05 → N07A 08-14 23:26 → OBSVTOIN 08-15 17:11 → INTOOBSV 08-15 17:11
PROVIDERS: ADMIT Hospitalist; ATTEND Hospitalist
PROC: 0WJJ0ZZ Inspection of Pelvic Cavity, Open Approach (ICD-10-PCS; 2016-08-15)
PROC: 30233N1 Transfusion of Nonautologous Red Blood Cells into Peripheral Vein, Percutaneous Approach (ICD-10-PCS; 2016-08-15)
PROC: 0UT00ZZ Resection of Right Ovary, Open Approach (ICD-10-PCS; 2016-08-16)
PROC: 0UT70ZZ Resection of Bilateral Fallopian Tubes, Open Approach (ICD-10-PCS; 2016-08-16)
PROC: 0UT90ZZ Resection of Uterus, Open Approach (ICD-10-PCS; principal; 2016-08-16 08:48)
DX: D25.9 Leiomyoma of uterus, unspecified (principal); D62 Acute posthemorrhagic anemia; N80.3 Endometriosis of pelvic peritoneum; I48.91 Unspecified atrial fibrillation; N83.8 Other noninflammatory disorders of ovary, fallopian tube and broad ligament; G40.909 Epilepsy, unspecified, not intractable, without status epilepticus; N94.6 Dysmenorrhea, unspecified; N92.1 Excessive and frequent menstruation with irregular cycle; I10 Essential (primary) hypertension; N13.39 Other hydronephrosis; F32.9 Major depressive disorder, single episode, unspecified; F41.9 Anxiety disorder, unspecified; R11.2 Nausea with vomiting, unspecified; N92.0 Excessive and frequent menstruation with regular cycle; N93.8 Other specified abnormal uterine and vaginal bleeding; E87.6 Hypokalemia; R79.1 Abnormal coagulation profile; F17.210 Nicotine dependence, cigarettes, uncomplicated; Z79.01 Long term (current) use of anticoagulants; Z86.73 Personal history of transient ischemic attack (TIA), and cerebral infarction without residual deficits; K59.00 Constipation, unspecified; K21.9 Gastro-esophageal reflux disease without esophagitis; E78.5 Hyperlipidemia, unspecified
CPT/HCPCS: 36430; 74177; 76937; 80048; 80053; 81001; 82607; 82728; 82746; 83540; 83550; 83690; 83735; 84703; 85007; 85025; 85027; 85610; 85730; 86301; 86304; 86850; 86900; 86901; 86920; 88307; 93005; 94150; 94667; 96361; 96374; 96375; G8987-GP; G8988-GP; J0131; J0500; J0690; J1100; J1170; J1200; J1644; J1650; J1756; J1885; J1940; J2250; J2270; J2405; J2590; J3010; J3480; J7030; J7050; J7120; P9016; Q9967

== ENCOUNTER 2016-08-27 23:17 | Emergency (ER) | payer MEDICAID ==
[~2016-08-27] VITALS: Ht 160 cm; Wt 106.0 kg
[~2016-08-27 23:17] MED LIST changes: +COLA100C3 PO; +ENOX100I SQ; +FERR325T PO; +OXYC1TAB63 PO; -PROBCAP4
[2016-08-27 23:19] VITALS: BP 133/83; PULSE 116; RESP 18; TEMP 98.1
[2016-09-11] MEDS ORDERED: OXYC1TAB63 PO (11:08)
[2016-09-11] MEDS ORDERED: BACT800T5 PO (11:08)
[2016-09-24] MEDS ORDERED: LEVE250 PO (13:08)
[2016-11-04] MEDS ORDERED: COUM10TA PO (14:43)
[2016-11-07] MEDS ORDERED: COUM10TA PO (13:38)
== END 2016-08-28 01:06 | disposition left against medical advice (07) ==
LOC: NED 23:59
DX: K59.00 Constipation, unspecified (principal)
CPT/HCPCS: 99281

== ENCOUNTER 2016-09-01 08:58 | Emergency (ER) | payer MEDICAID ==
[~2016-09-01] VITALS: Ht 160 cm; Wt 108.0 kg
[2016-09-01 09:03] VITALS: BP 124/78; PULSE 90; RESP 14; TEMP 98; O2SAT 98
--- NOTE | 2016-09-01 09:18 | PD ---
HPI Chief Complaint: Bleeding Time Seen by Provider: 09:18 Travel History International Travel<30 days: No Contact w/Intl Traveler<30days: No Traveled to known affect area: No History of Present Illness HPI 36-year-old female had a hysterectomy done 3 weeks ago. She was discharged home on August 19. She still has her Steri-Strips on. She went to see her [employer] surgeon earlier this week to get the wound checked. She was complaining of pain and constipation. Patient has been discharged home on prescription by her surgeon but she does not have any money to buy the prescription medications. She has been taking ibuprofen [id number] for the pain and her friends Dulcolax. She said she had her last bowel movement 3-4 days ago. She felt very impacted and did self disimpaction of the stool. She is still in pain from the surgery at the incision. Otherwise no fever or chills. No vomiting or diarrhea. Vital signs were stable. PFSH Past Medical History Narrative Medical List of her past medical history as reviewed from the nursing note. Hx Anticoagulant Therapy: Yes Anemia: Yes Blood Disorders: No Anxiety: Yes Depression: Yes Cancer: No Cardiovascular Problems: Yes Cerebrovascular Accident: Yes Diminished Hearing: No Endocrine: No Genitourinary: Yes (hydronephrosis) Immune Disorder: No Musculoskeletal: No Neurologic: Yes (hx of stroke x 2) Psychiatric: Yes Reproductive: Yes (ABNORMAL INTRAUTERINE BLEEDING) Respiratory: No Immunizations Current: No Seizures: Yes : 1 Para: 1 Past Surgical History Section: Yes Gynecologic Surgery: Yes (d & c) Hysterectomy: Yes Social History Alcohol Use: Yes Tobacco Use: Yes Substance Use: Yes (MARIJUANA) Allergies-Medications (Allergen,Severity, Reaction): Coded Allergies: No Known Allergies (Unverified , 09/01/16) Comments No known drug allergies. Reported Meds & Prescriptions Reported Meds & Active Scripts Active Ferrous Sulfate 325 Mg Tab 325 Mg PO BID Enoxaparin Inj (Enoxaparin Sodium) 100 Mg/Ml Syr 100 Mg SQ BID Colace (Docusate Sodium) 100 Mg Cap 100 Mg PO BID Reported Coumadin (Warfarin) 10 Mg Tab 10 Mg PO DAILY Methocarbamol 750 Mg Tab 750 Mg PO HS PRN Keppra (Levetiracetam) 250 Mg Tab 250 Mg PO TID Narrative Medication List of her home medications reviewed from the nursing note. Review of Systems Except as stated in HPI: all other systems reviewed are Neg Physical Exam Narrative GENERAL: Obese, alert, no obvious distress SKIN: Warm and dry. HEAD: Atraumatic. Normocephalic. EYES: Pupils equal and round. No scleral icterus. No injection or drainage. ENT: No nasal bleeding or discharge. Mucous membranes pink and moist. NECK: Trachea midline. No JVD. CARDIOVASCULAR: Regular rate and rhythm. No murmur appreciated. RESPIRATORY: No accessory muscle use. Clear to auscultation. Breath sounds equal bilaterally. GASTROINTESTINAL: Abdomen soft, non-tender, nondistended. Hepatic and splenic margins not palpable. MUSCULOSKELETAL: No obvious deformities. No clubbing. No cyanosis. No edema. Surgical midline incision looks good with no discharge. NEUROLOGICAL: Awake and alert. No obvious cranial nerve deficits. Motor grossly within normal limits. Normal speech. PSYCHIATRIC: Appropriate mood and affect; insight and judgment normal. Data Data Last Documented VS Vital Signs Date Time Temp Pulse Resp B/P Pulse Ox O2 Delivery O2 Flow Rate FiO2 09/01/16 12:40 97.8 78 17 130/71 99 09/01/16 09:55 Room Air Orders Complete Blood Count With Diff (09/01/16 09:27) Comprehensive Metabolic Panel (09/01/16 09:27) Prothrombin Time / Inr (Pt) (09/01/16 09:27) Iv Access Insert/Monitor (09/01/16 09:27) Ecg Monitoring (09/01/16 09:27) Oximetry (09/01/16 09:27) Morphine Inj (Morphine Inj) (09/01/16 09:30) Ondansetron Inj (Zofran Inj) (09/01/16 09:30) Sodium Chlor 0.9% 1000 Ml Inj (Ns 1000 M (09/01/16 09:27) Sodium Chloride 0.9% Flush (Ns Flush) (09/01/16 09:30) Abdomen, Upright Only (09/01/16 09:27) Fleets Enema (Adult) (Fleets Enema (Adul (09/01/16 11:30) Labs Laboratory Tests Test 09/01/16 09:33 White Blood Count 7.9 TH/MM3 Red Blood Count 4.96 MIL/MM3 Hemoglobin 10.7 GM/DL Hematocrit 35.6 % Mean Corpuscular Volume 71.8 FL Mean Corpuscular Hemoglobin 21.5 PG Mean Corpuscular Hemoglobin 30.0 % Concent Red Cell Distribution Width 31.0 % Platelet Count 358 TH/MM3 Mean Platelet Volume 9.3 FL Neutrophils (%) (Auto) 76.7 % Lymphocytes (%) (Auto) 13.9 % Monocytes (%) (Auto) 5.9 % Eosinophils (%) (Auto) 2.3 % Basophils (%) (Auto) 1.2 % Neutrophils # (Auto) 6.1 TH/MM3 Lymphocytes # (Auto) 1.1 TH/MM3 Monocytes # (Auto) 0.5 TH/MM3 Eosinophils # (Auto) 0.2 TH/MM3 Basophils # (Auto) 0.1 TH/MM3 CBC Comment AUTO DIFF Differential Comment AUTO DIFF CONFIRMED Target Cells 1+ Tear Drop Cells 1+ Ovalocytes 1+ Prothrombin Time 35.6 SEC Prothromb Time International 3.1 RATIO Ratio Sodium Level 141 MEQ/L Potassium Level 3.6 MEQ/L Chloride Level 109 MEQ/L Carbon Dioxide Level 24.1 MEQ/L Anion Gap 8 MEQ/L Blood Urea Nitrogen 5 MG/DL Creatinine 0.63 MG/DL Estimat Glomerular Filtration 128 ML/MIN Rate Random Glucose 81 MG/DL Calcium Level 8.5 MG/DL Total Bilirubin 0.2 MG/DL Aspartate Amino Transf 13 U/L (AST/SGOT) Alanine Aminotransferase 18 U/L (ALT/SGPT) Alkaline Phosphatase 71 U/L Total Protein 7.4 GM/DL Albumin 3.3 GM/DL MDM Medical Decision Making Medical Screen Exam Complete: Yes Emergency Medical Condition: Yes Medical Record Reviewed: Yes Differential Diagnosis Constipation Narrative Course 10:40 AM blood test results are back and within normal limit. X-ray of the abdomen is of poor quality. I have ordered for adult Fleet enema and patient is acceptable to the treatment. At this point patient has all the right prescriptions for her postsurgical pain as well as constipation. She has decided not to fill the prescriptions since she does not have money there is no point giving her any further prescriptions. I'll discharge her and she needs to follow up with her surgeon on Friday. Her INR is little higher than required and I will ask her to hold her Coumadin dose tonight. 12:16 PM patient had a good stool output after the enema. She will be discharged home. Procedures EKG Prior to Arrival: No Diagnosis Primary Impression: Postoperative pain Additional Impression: Constipation Qualified Code: K59.00 - Constipation, unspecified constipation type Referrals: Primary Care Physician 2 days Additional Instructions: Please fill the prescriptions that were given to you by the surgeon for pain control and for laxative. Follow-up with your surgeon on Friday for wound check and further questions. Please return to the ER if the condition worsens or any other new concerns. Please hold tonight's dose of Coumadin. When you see your surgeon on Friday have them recheck your INR. Disposition: 01 DISCHARGE HOME Condition: Stable Estela Gimenez MD Sep 01, 2016 09:18
[2016-09-01] MEDS ORDERED: SODIUM CHLOR 0.9% 1000 ML INJ 1,000 ML IV SCH (09:27)
[2016-09-01 09:30] VITALS: RESP 17; O2SAT 99
[2016-09-01] MEDS ORDERED: SODIUM CHLORIDE 0.9% FLUSH 5 ML FLUSH IVF PRN (09:30)
[2016-09-01] MEDS ORDERED: ONDANSETRON HCL 4 MG/2 ML VIAL IVP ONE (09:30)
[2016-09-01] MEDS ORDERED: MORPHINE SULFATE 4 MG/ML INJ IV PUSH ONE (09:30)
[2016-09-01 09:49] LABS: AUTOMATED NEUTROPHIL # 6.1 TH/MM3 (1.8-7.7); BASOPHIL # 0.1 TH/MM3 (0-0.2); BASOPHIL % 1.2 % (0.0-2.0); EOSINOPHIL # 0.2 TH/MM3 (0-0.4); EOSINOPHIL % 2.3 % (0.0-4.0); HEMATOCRIT 35.6 % (35.0-46.0); LYMPH % 13.9 % (9.0-44.0); LYMPHOCYTE # 1.1 TH/MM3 (1.0-4.8); MEAN CELL VOLUME 71.8 FL (80.0-100.0); MEAN CORPUSCULAR HEMOGLOBIN 21.5 PG (27.0-34.0); MONO % 5.9 % (0.0-8.0); NEUT % 76.7 % (16.0-70.0); PLATELET COUNT 358 TH/MM3 (150-450); RED BLOOD COUNT 4.96 MIL/MM3 (4.00-5.30); WHITE BLOOD COUNT 7.9 TH/MM3 (4.0-11.0)
[2016-09-01 09:50] LABS: HEMO FLAGS AUTO DIFF
[2016-09-01 09:55] VITALS: BP 147/68; PULSE 82; RESP 17; O2SAT 99
[2016-09-01 09:57] LABS: INTERNATIONAL NORMALIZED RATIO 3.1 RATIO; PROTHROMBIN TIME - PATIENT 35.6 SEC (9.8-11.6)
[2016-09-01 10:01] LABS: ANION GAP 8 MEQ/L (5-15); BICARBONATE 24.1 MEQ/L (21.0-32.0); BLOOD UREA NITROGEN 5 MG/DL (7-18); CHLORIDE 109 MEQ/L (98-107); GLOMERULAR FILTRATION RATE 128 ML/MIN (>89); POTASSIUM 3.6 MEQ/L (3.5-5.1); SODIUM (NA) 141 MEQ/L (136-145)
[2016-09-01 10:05] LABS: ALKALINE PHOSPHATASE 71 U/L (45-117); ALT (GPT) 18 U/L (10-53); AST (GOT) 13 U/L (15-37); TOTAL BILIRUBIN ADULT 0.2 MG/DL (0.2-1.0)
--- NOTE | 2016-09-01 10:17 | RADRPT ---
EXAM DATE/TIME: 09/01/2016 09:45 [facility] COMPARISON: No previous studies available for comparison. INDICATIONS : Constipation and right upper quadrant pain. MEDICAL HISTORY : Hydronephrosis. SURGICAL HISTORY : Hysterectomy. ENCOUNTER: Initial ACUITY: 3 weeks PAIN SCORE: 5/10 LOCATION: Right upper quadrant FINDINGS: A single erect view of the abdomen demonstrates the lower lungs to be clear. No evidence of free int raperitoneal gas. The visualized bowel loops are unremarkable. CONCLUSION: Normal examination. Ethan Bishop MD on September 01, 2016 at 10:16 Board Certified Radiologist. This report was verified electronically.
[2016-09-01 10:45] LABS: OVALOCYTES 1+ (NORMAL); TARGET CELLS 1+ (NORMAL); TEARDROP RBCS 1+ (NORMAL)
[2016-09-01 10:46] LABS: SCAN/DIFF AUTO DIFF CONFIRMED
[2016-09-01] MEDS ORDERED: SOD PHOSPHATE/SOD BIPHOSPHATE (ADULT) ENEMA 133ML PR ONE (11:30)
[2016-09-01 12:40] VITALS: BP 130/71; TEMP 97.8
[2016-09-11] MEDS ORDERED: OXYC1TAB63 PO (11:08)
[2016-09-11] MEDS ORDERED: BACT800T5 PO (11:08)
[2016-09-24] MEDS ORDERED: LEVE250 PO (13:08)
[2016-11-04] MEDS ORDERED: COUM10TA PO (14:43)
[2016-11-07] MEDS ORDERED: COUM10TA PO (13:38)
== END 2016-09-01 12:40 | disposition home or self-care (01) ==
LOC: NEPE 08:58
DX: G89.18 Other acute postprocedural pain (principal); K59.00 Constipation, unspecified; Z90.710 Acquired absence of both cervix and uterus; Z79.01 Long term (current) use of anticoagulants; Z86.73 Personal history of transient ischemic attack (TIA), and cerebral infarction without residual deficits; Z72.0 Tobacco use
CPT/HCPCS: 74000; 80053; 85025; 85610; 96361; 96374; 96375; 99283; J2270; J2405; J7030

== ENCOUNTER 2017-02-18 00:45 | Emergency (ER) | payer OTHER, MEDICAID ==
[~2017-02-18] VITALS: Ht 160 cm; Wt 106.0 kg
[~2017-02-18 00:45] MED LIST changes: -COLA100C3 PO; -ENOX100I SQ; -OXYC1TAB63 PO
[2017-02-18 00:50] VITALS: BP 132/71; PULSE 99; RESP 16; TEMP 98.1; O2SAT 98
[2017-02-18] MEDS ORDERED: ACETAMINOPHEN 325 MG TAB PO ONE (01:30)
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
== END 2017-02-18 01:56 | disposition home or self-care (01) ==
LOC: NEPD 00:45
DX: T14.8 Other injury of unspecified body region (principal); V49.49XA Driver injured in collision with other motor vehicles in traffic accident, initial encounter; Y92.410 Unspecified street and highway as the place of occurrence of the external cause
CPT/HCPCS: 99282

== ENCOUNTER 2017-03-24 16:47 | Emergency (ER) | payer MEDICAID, OTHER ==
[~2017-03-24] VITALS: Ht 160 cm; Wt 107.0 kg
[~2017-03-24 16:47] MED LIST changes: -FERR325T PO
--- NOTE | 2017-03-24 17:15 | PD ---
Physical Exam Date Seen by Provider: Mar 24, 2017 Time Seen by Provider: 17:10 Narrative 36 y/o female here with left sided and central abdominal pain. Vomited twice. Nauseous. Has had Incontinance for the last week. + Back Pain. Feels feverish. S/P Hysterectomy. No Diarrhea or Constipation. Symptoms started this am. Protocals ordered. Vital signs reviewed. Patient stable. Awaiting Bed placement. [facility] Medical Record Reviewed: Yes Supervised Visit with DAVINA: Yes Condition: Stable Raymundo Glynn Mar 24, 2017 17:15
[2017-03-24 17:41] VITALS: BP 158/97; PULSE 78; RESP 24; TEMP 98.4; O2SAT 99
[2017-03-24 18:02] LABS: BLOOD, URINE MOD (NEG); COMMENT (UR) CULT NOT INDICATED; CULTURE IF INDICATED CULT NOT INDICATED; GLUCOSE,URINE NEG (NEG); KETONE, URINE NEG (NEG); MUCUS URINE FEW /lpf (OCC); NITRITE,URINE NEG (NEG); SQUAMOUS EPITHELIAL CELL URINE 3 /hpf (0-5); URINE COLOR YELLOW (YELLW/STRAW)
[2017-03-24 19:02] VITALS: BP 151/72; PULSE 48; RESP 18; O2SAT 99
[2017-03-24] MEDS ORDERED: SODIUM CHLORID 0.9% 500 ML INJ 500 ML IV ONE (19:15)
[2017-03-24] MEDS ORDERED: ONDANSETRON HCL 4 MG/2 ML VIAL IV PUSH ONE (19:15)
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
[2017-03-24] MEDS ORDERED: MORPHINE SULFATE 4 MG/ML INJ IV PUSH ONE (19:30)
[2017-03-24 19:31] LABS: BASOPHIL # 0.1 TH/MM3 (0-0.2); BASOPHIL % 0.7 % (0.0-2.0); EOSINOPHIL % 0.3 % (0.0-4.0); HEMATOCRIT 41.3 % (35.0-46.0); HEMO FLAGS DIFF FINAL; LYMPH % 8.1 % (9.0-44.0); LYMPHOCYTE # 0.8 TH/MM3 (1.0-4.8); MEAN CELL VOLUME 82.9 FL (80.0-100.0); MEAN CORPUSCULAR HEMOGLOBIN 26.9 PG (27.0-34.0); MEAN CORPUSCULAR HGB CONC 32.4 % (32.0-36.0); MONO % 3.6 % (0.0-8.0); NEUT % 87.3 % (16.0-70.0); PLATELET COUNT 251 TH/MM3 (150-450); RED BLOOD COUNT 4.98 MIL/MM3 (4.00-5.30); RED CELL DISTRIBUTION WIDTH 15.9 % (11.6-17.2); WHITE BLOOD COUNT 10.3 TH/MM3 (4.0-11.0)
[2017-03-24 19:48] LABS: ANION GAP 7 MEQ/L (5-15); AST (GOT) 17 U/L (15-37); BICARBONATE 24.7 MEQ/L (21.0-32.0); BLOOD UREA NITROGEN 6 MG/DL (7-18); CHLORIDE 106 MEQ/L (98-107); GLOMERULAR FILTRATION RATE 144 ML/MIN (>89); SODIUM (NA) 138 MEQ/L (136-145)
[2017-03-24 19:52] LABS: INTERNATIONAL NORMALIZED RATIO 2.9 RATIO; PROTHROMBIN TIME - PATIENT 33.4 SEC (9.8-11.6)
[2017-03-24 19:53] LABS: ALKALINE PHOSPHATASE 76 U/L (45-117); ALT (GPT) 21 U/L (10-53); CREATINE KINASE 240 U/L (26-192); TOTAL BILIRUBIN ADULT 0.3 MG/DL (0.2-1.0)
[2017-03-24 19:57] LABS: APTT (PATIENT) 42.3 SEC (24.3-30.1)
[2017-03-24 20:05] LABS: CKMB 0.8 NG/ML (0.5-3.6)
--- NOTE | 2017-03-24 20:25 | RADRPT ---
EXAM DATE/TIME: 03/24/2017 19:57 [facility] COMPARISON: No previous studies available for comparison. INDICATIONS : Chest pressure. MEDICAL HISTORY : None. SURGICAL HISTORY : Hysterectomy. ENCOUNTER: Initial ACUITY: 1 day PAIN SCORE: 6/10 LOCATION: Bilateral chest FINDINGS: A single view of the chest demonstrates the lungs to be symmetrically aerated without evidence of mas s, infiltrate or effusion. The cardiomediastinal contours are unremarkable. Osseous structures are intact. CONCLUSION: No acute disease. Wild Ceja MD on March 24, 2017 at 20:24 Board Certified Radiologist. This report was verified electronically.
[2017-03-24] MEDS ORDERED: FAMOTIDINE INJ 20 MG in SODIUM CHLORIDE 0.9% INJ 98 ML IV SCH (21:00)
[2017-03-24] MEDS ORDERED: IOHEXOL 350 MG/ML 10 ML VIAL (for RAD DIAG) IV ONE (21:11)
[2017-03-24] MEDS ORDERED: FAMO40TA PO (21:24)
[2017-03-24] MEDS ORDERED: ZOFR4TAB3 SL (21:24)
[2017-03-24 21:35] VITALS: RESP 16
--- NOTE | 2017-03-24 21:38 | RADRPT ---
EXAM DATE/TIME: 03/24/2017 21:02 [facility] COMPARISON: No previous studies available for comparison. INDICATIONS : Left sided abdominal pain radiating to middle with vomiting today. IV CONTRAST: 85 cc Omnipaque 350 (iohexol) IV ORAL CONTRAST: No oral contrast ingested. RADIATION DOSE: 16.54 CTDIvol (mGy) MEDICAL HISTORY : Stroke. Hypertension. Seizures. SURGICAL HISTORY : section. Hysterectomy. ENCOUNTER: Initial ACUITY: 1 day PAIN SCALE: 5/10 LOCATION: Left medial abdomen TECHNIQUE: Volumetric scanning of the abdomen and pelvis was performed. Using automated exposure control and ad justment of the mA and/or kV according to patient size, radiation dose was kept as low as reasonably achievable to obtain optimal diagnostic quality images. DICOM format image data is available electro nically for review and comparison. FINDINGS: Previous large pelvic mass has been resected. This previously measured up to 22 cm in diameter. There is a residual left adnexal mass measuring about 6.1 x 4.9 cm. Lung bases clear. No acute findings in the liver, spleen, adrenals, kidneys or pancreas. No bowel obs truction. No free air or free fluid. No acute bony abnormalities. Small left pleural calcification po steriorly. CONCLUSION: 1. Resection of previous large pelvic mass with a 6.1 x 4.9 cm lobulated circumscribed left adnexal m ass remaining of uncertain etiology. It is unclear ovaries were removed. No other acute findings. Wild Ceja MD on March 24, 2017 at 21:32 Board Certified Radiologist. This report was verified electronically.
[2017-03-24] MEDS ORDERED: ACETAMINOPHEN/HYDROcodone 325 MG/5 MG TAB PO ONE (22:00)
[2017-03-24] MEDS ORDERED: HYDR-3533 PO (22:16)
--- NOTE | 2017-03-25 15:42 | EKG ---
Date Performed: 03/24/2017 Time Performed: 18:26:35 PTAGE: 36 years EKG: SINUS BRADYCARDIA INCOMPLETE RIGHT BUNDLE BRANCH BLOCK BORDERLINE ECG PREVIOUS TRACING : 08/12/2016 05.07 DOCTOR: Steph Gonzalez Interpretating Date/Time 03/25/2017 15:39:55
[2017-03-26] MEDS ORDERED: COUM10TA PO (10:12)
== END 2017-03-24 22:32 | disposition home or self-care (01) ==
LOC: NEPE 16:47
DX: R10.12 Left upper quadrant pain (principal); R19.04 Left lower quadrant abdominal swelling, mass and lump; I10 Essential (primary) hypertension; I48.91 Unspecified atrial fibrillation; Z79.01 Long term (current) use of anticoagulants; D64.9 Anemia, unspecified; Z86.73 Personal history of transient ischemic attack (TIA), and cerebral infarction without residual deficits
CPT/HCPCS: 71010; 74177; 80053; 81001; 82550; 82552; 83690; 84484; 85025; 85610; 85730; 93005; 96361; 96374; 96375; 99285; J2270; J2405; J7040; Q9967

== ENCOUNTER 2017-10-08 19:53 | Emergency (ER) | payer OTHER ==
[~2017-10-08 19:53] MED LIST changes: -METH750T PO
[2017-10-08 19:55] VITALS: BP 172/87; PULSE 84; RESP 16; TEMP 99.3; O2SAT 100
[2017-10-08 20:44] LABS: AUTOMATED NEUTROPHIL # 7.3 TH/MM3 (1.8-7.7); BASOPHIL # 0.1 TH/MM3 (0-0.2); BASOPHIL % 0.6 % (0.0-2.0); EOSINOPHIL # 0.1 TH/MM3 (0-0.4); EOSINOPHIL % 1.6 % (0.0-4.0); HEMATOCRIT 41.7 % (35.0-46.0); HEMOGLOBIN 13.3 GM/DL (11.6-15.3); LYMPH % 8.3 % (9.0-44.0); LYMPHOCYTE # 0.7 TH/MM3 (1.0-4.8); MEAN CELL VOLUME 81.6 FL (80.0-100.0); MEAN CORPUSCULAR HEMOGLOBIN 25.9 PG (27.0-34.0); MEAN CORPUSCULAR HGB CONC 31.8 % (32.0-36.0); MEAN PLATELET VOLUME 9.5 FL (7.0-11.0); MONO % 5.6 % (0.0-8.0); MONOCYTE # 0.5 TH/MM3 (0-0.9); NEUT % 83.9 % (16.0-70.0); PLATELET COUNT 236 TH/MM3 (150-450); RED BLOOD COUNT 5.11 MIL/MM3 (4.00-5.30); RED CELL DISTRIBUTION WIDTH 15.4 % (11.6-17.2); WHITE BLOOD COUNT 8.7 TH/MM3 (4.0-11.0)
[2017-10-08] MEDS ORDERED: LIDOCAINE VISCOUS 2% SOLN 15 ML UDC SWISH-SWAL ONE (21:00)
[2017-10-08] MEDS ORDERED: CLINDAMYCIN INJ 600 MG in SODIUM CHLORIDE 0.9% INJ 100 ML IV ONE (21:00)
[2017-10-08] MEDS ORDERED: diphenhydrAMINE HCL 50 MG/ML VIAL IV PUSH ONE (21:00)
[2017-10-08] MEDS ORDERED: diphenhydrAMINE HCL ELIXIR 12.5 MG/5 ML CUP PO ONE (21:00)
[2017-10-08] MEDS ORDERED: DEXAMETHASONE SOD PHOS 4 MG/ML VIAL IV PUSH ONE (21:00)
--- NOTE | 2017-10-08 21:04 | PD ---
HPI Chief Complaint: Medical Clearance Time Seen by Provider: 20:35 Travel History International Travel<30 days: No Contact w/Intl Traveler<30days: No Traveled to known affect area: No History of Present Illness HPI Patient is a 37-year-old female for 1 day she's had severe swelling tenderness and pain on swallowing in her posterior pharynx she has no history of diabetes she has no sick contacts she denies any whenhome being sick. She's had slight cold-like feeling congestion yesterday and this morning her throat is severely painful swollen and mild exudate submental node swelling feverish she says she has a mild voice change as well as severe pain on swallowing localized the posterior pharynx. She is not seen another doctor for this and she is not taking any medication for this PFSH Past Medical History Hx Anticoagulant Therapy: Yes (COUMADIN) Anemia: Yes Blood Disorders: No Anxiety: Yes Depression: Yes Cancer: No Cardiovascular Problems: Yes (HBP) Cerebrovascular Accident: Yes Diminished Hearing: No Endocrine: No Genitourinary: Yes (hydronephrosis) Hypertension: Yes Immune Disorder: No Implanted Vascular Access Dvce: No Musculoskeletal: No Neurologic: Yes (hx of stroke x 2) Psychiatric: Yes Reproductive: Yes (ABNORMAL INTRAUTERINE BLEEDING) Respiratory: No Immunizations Current: No Seizures: Yes ?: Not : 1 Para: 1 Past Surgical History Section: Yes Gynecologic Surgery: Yes (d & c) Hysterectomy: Yes Other Surgery: Yes (D&C) Social History Alcohol Use: Yes (OCASSIONALLY) Tobacco Use: Yes (1/2 ppd) Substance Use: Yes (weed) Allergies-Medications (Allergen,Severity, Reaction): Coded Allergies: No Known Allergies (Verified Allergy, Unknown, 10/08/17) Reported Meds & Prescriptions Reported Meds & Active Scripts Active Dexamethasone 4 Mg Tab 4 Mg PO DAILY Ibuprofen 600 Mg Tab 600 Mg PO Q6H PRN Clindamycin (Clindamycin HCl) 300 Mg Cap 300 Mg PO TID Coumadin (Warfarin) 10 Mg Tab 10 Mg PO DAILY Reported Keppra (Levetiracetam) 250 Mg Tab 250 Mg PO DAILY Review of Systems Except as stated in HPI: all other systems reviewed are Neg HENT: Positive: Sore Throat Physical Exam Narrative GENERAL: Patient is lying in bed holding her throat and talking in a hoarse voice SKIN: Warm and dry. HEAD: Atraumatic. Normocephalic. EYES: Pupils equal and round. No scleral icterus. No injection or drainage. ENT: Significant swelling to her tonsils and posterior pharynx bilateral left greater than right with exudate mostly on the left tonsil uvula is not swollen. no signs of peritonsillar abscess= uvula is midline NECK: Submental submandibular node swelling anterior neck bilateral CARDIOVASCULAR: Regular rate and rhythm. RESPIRATORY: No accessory muscle use. Clear to auscultation. Breath sounds equal bilaterally. GASTROINTESTINAL: Abdomen soft, non-tender, nondistended. Hepatic and splenic margins not palpable. MUSCULOSKELETAL: Extremities without clubbing, cyanosis, or edema. No obvious deformities. NEUROLOGICAL: Awake and alert. No obvious cranial nerve deficits. Motor grossly within normal limits. Five out of 5 muscle strength in the arms and legs. Normal speech. PSYCHIATRIC: Appropriate mood and affect; insight and judgment normal. Data Data Last Documented VS Vital Signs Date Time Temp Pulse Resp B/P (MAP) Pulse Ox O2 Delivery O2 Flow Rate FiO2 10/09/17 06:37 71 16 123/68 (86) 99 10/08/17 23:14 Room Air 10/08/17 19:55 99.3 Orders Orders Influenzae A/B Antigen (10/08/17 20:05) Group A Rapid Strep Screen (10/08/17 20:05) Complete Blood Count With Diff (10/08/17 20:05) Basic Metabolic Panel (Bmp) (10/08/17 20:05) Coag Profile (10/08/17 20:05) Ct Brain W/O Iv Contrast(Rout) (10/08/17 ) Dexamethasone Inj (Decadron Inj) (10/08/17 21:00) Clindamycin Inj (Cleocin Inj) (10/08/17 21:00) Diphenhydramine Inj (Benadryl Inj) (10/08/17 21:00) Lidocaine 2% Viscous (Xylocaine 2% Visco (10/08/17 21:00) Diphenhydramine Liq (Benadryl Liq) (10/08/17 21:00) Strep Culture (Group A) (10/08/17 20:23) Ketorolac Inj (Toradol Inj) (10/08/17 23:30) Morphine Inj (Morphine Inj) (10/08/17 23:30) Ct Soft Tiss Neck W/O Iv Cont (10/09/17 ) Clindamycin Inj (Cleocin Inj) (10/09/17 05:15) Ed Discharge Order (10/09/17 06:13) Labs Laboratory Tests Test 10/08/17 20:23 White Blood Count 8.7 TH/MM3 Red Blood Count 5.11 MIL/MM3 Hemoglobin 13.3 GM/DL Hematocrit 41.7 % Mean Corpuscular Volume 81.6 FL Mean Corpuscular Hemoglobin 25.9 PG Mean Corpuscular Hemoglobin Concent 31.8 % Red Cell Distribution Width 15.4 % Platelet Count 236 TH/MM3 Mean Platelet Volume 9.5 FL Neutrophils (%) (Auto) 83.9 % Lymphocytes (%) (Auto) 8.3 % Monocytes (%) (Auto) 5.6 % Eosinophils (%) (Auto) 1.6 % Basophils (%) (Auto) 0.6 % Neutrophils # (Auto) 7.3 TH/MM3 Lymphocytes # (Auto) 0.7 TH/MM3 Monocytes # (Auto) 0.5 TH/MM3 Eosinophils # (Auto) 0.1 TH/MM3 Basophils # (Auto) 0.1 TH/MM3 CBC Comment DIFF FINAL Differential Comment Prothrombin Time 11.9 SEC Prothromb Time International Ratio 1.2 RATIO Activated Partial Thromboplast Time 30.5 SEC Blood Urea Nitrogen 5 MG/DL Creatinine 0.73 MG/DL Random Glucose 92 MG/DL Calcium Level 9.0 MG/DL Sodium Level 136 MEQ/L Potassium Level 3.7 MEQ/L Chloride Level 102 MEQ/L Carbon Dioxide Level 26.7 MEQ/L Anion Gap 7 MEQ/L Estimat Glomerular Filtration Rate 107 ML/MIN [facility] Medical Decision Making Medical Screen Exam Complete: Yes Emergency Medical Condition: Yes Differential Diagnosis strep pharyngitis vs bacterial tracheitis , vs peritonsillar abscess, other Narrative Course strep negative flu negative and CT airway open and no obstruction clindamycin 600 mg IVP and then 6 hrs later 300 mg IVPB and then dischrged with po CLindamycin for 10 days and close follow up . pt told to return immediately for closing throat sensation or voice changing or any concerns Diagnosis Primary Impression: Tonsillitis Additional Impression: Pharyngitis Qualified Codes: J02.9 - Acute pharyngitis, unspecified Patient Instructions: General Instructions, Pharyngitis (ED), Tonsillitis (ED) Scripts Dexamethasone (Dexamethasone) 4 Mg Tab 4 MG PO DAILY, #4 TAB 0 Refills Prov: Jesus Ortega MD 10/09/17 Ibuprofen (Ibuprofen) 600 Mg Tab 600 MG PO Q6H Y for Pain/Inflammation, #40 TAB 0 Refills Prov: Jesus Ortega MD 10/09/17 Clindamycin (Clindamycin) 300 Mg Cap 300 MG PO TID for Infection, #30 CAP 0 Refills Prov: Jesus Ortega MD 10/09/17 Disposition: 01 DISCHARGE HOME Condition: Good Jesus Ortega MD Oct 08, 2017 21:04
[2017-10-08 21:26] LABS: BICARBONATE 26.7 MEQ/L (21.0-32.0); CREATININE 0.73 MG/DL (0.50-1.00)
[2017-10-08 21:29] LABS: INTERNATIONAL NORMALIZED RATIO 1.2 RATIO; PROTHROMBIN TIME - PATIENT 11.9 SEC (9.8-11.6)
--- NOTE | 2017-10-08 22:05 | RADRPT ---
EXAM DATE/TIME: 10/08/2017 21:51 [facility] COMPARISON: CT ABDOMEN & PELVIS W CONTRAST, March 24, 2017, 21:02. INDICATIONS : Cephalgia; left ear pain. RADIATION DOSE: 39.73 CTDIvol (mGy) MEDICAL HISTORY : Stroke. Seizures. Hypertension. SURGICAL HISTORY : Hysterectomy. ENCOUNTER: Initial ACUITY: 1 day PAIN SCALE: 5/10 LOCATION: cranial TECHNIQUE: Multiple contiguous axial images were obtained of the head. Using automated exposure control and adj ustment of the mA and/or kV according to patient size, radiation dose was kept as low as reasonably a chievable to obtain optimal diagnostic quality images. DICOM format image data is available electro nically for review and comparison. FINDINGS: CEREBRUM: The ventricles are normal for age. No evidence of midline shift, mass lesion, hemorrhage or acute in farction. No extra-axial fluid collections are seen. POSTERIOR FOSSA: The cerebellum and brainstem are intact. The 4th ventricle is midline. The cerebellopontine angle i s unremarkable. EXTRACRANIAL: The visualized portion of the orbits is intact. SKULL: The calvaria is intact. No evidence of skull fracture. CONCLUSION: 1. No acute intracranial abnormality identified. Darrick Shook MD on October 08, 2017 at 22:03 Board Certified Radiologist. This report was verified electronically.
[2017-10-08 23:14] VITALS: BP 142/70; PULSE 91; RESP 16; O2SAT 98
[2017-10-08] MEDS ORDERED: KETOROLAC TROMETHAMINE 30 MG/ML (IVP) VIAL IV PUSH ONE (23:30)
[2017-10-08] MEDS ORDERED: MORPHINE SULFATE 2 MG/ML INJ IV PUSH ONE (23:30)
[2017-10-09 00:41] VITALS: RESP 16
--- NOTE | 2017-10-09 04:53 | RADRPT ---
EXAM DATE/TIME: 10/09/2017 04:12 [facility] COMPARISON: No previous studies available for comparison. INDICATIONS : Sore throat. RADIATION DOSE: 17.59 CTDIvol (mGy) MEDICAL HISTORY : Stroke. Seizures. Hypertension. SURGICAL HISTORY : None. ENCOUNTER: Initial ACUITY: 2 days PAIN SCORE: 5/10 LOCATION: neck TECHNIQUE: Volumetric scanning of the neck was performed. Using automated exposure control and adjustment of th e mA and/or kV according to patient size, radiation dose was kept as low as reasonably achievable to obtain optimal diagnostic quality images. DICOM format image data is available electronically for re view and comparison. FINDINGS: NASOPHARYNX: The nasopharyngeal airway has a normal configuration. No mucosal thickening or mass is seen. OROPHARYNX: The intrinsic muscles of the tongue are symmetric. The tonsillar pillars are intact. The prevertebr al soft tissues are not thickened. LARYNX: The supraglottic, glottic, and infraglottic structures are intact. PARAPHARYNGEAL: The parapharyngeal soft tissues are prominent with no focal abnormality. SALIVARY GLANDS: The parotid and submandibular glands are intact. LYMPH NODES: No enlarged or necrotic-appearing nodes. THYROID: Homogeneous enhancement without evidence of nodule. BONES: Unremarkable. CONCLUSION: The parapharyngeal soft tissues are prominent with no focal mass on this noncontrast exam. There is no adenopathy. Jay Euceda MD on October 09, 2017 at 4:47 Board Certified Radiologist. This report was verified electronically.
[2017-10-09] MEDS ORDERED: CLINDAMYCIN INJ 300 MG in SODIUM CHLORIDE 0.9% INJ 100 ML IV ONE (05:15)
[2017-10-09] MEDS ORDERED: DEXA4TAB PO (06:11)
[2017-10-09] MEDS ORDERED: IBUP-232 PO (06:11)
[2017-10-09] MEDS ORDERED: CLIN300C5 PO (06:11)
[2017-10-09 06:37] VITALS: BP 123/68
== END 2017-10-09 06:38 | disposition home or self-care (01) ==
LOC: NEPE 19:53
DX: J03.90 Acute tonsillitis, unspecified (principal); F32.9 Major depressive disorder, single episode, unspecified; I10 Essential (primary) hypertension; F17.210 Nicotine dependence, cigarettes, uncomplicated; Z79.01 Long term (current) use of anticoagulants; Z86.73 Personal history of transient ischemic attack (TIA), and cerebral infarction without residual deficits
CPT/HCPCS: 70450; 70490; 80048; 85025; 85610; 85730; 87081; 87804; 87880; 96374; 96375; 99284; J1100; J1200; J1885; J2270

== ENCOUNTER 2017-11-20 13:49 | Emergency (ER) | payer OTHER ==
[~2017-11-20 13:49] MED LIST changes: +CLIN300C5 PO; +DEXA4TAB PO; +IBUP-232 PO
[2017-11-20 14:11] VITALS: BP 126/79; PULSE 69; RESP 14; TEMP 98.5; O2SAT 99
--- NOTE | 2017-11-20 14:38 | RADRPT ---
EXAM DATE/TIME: 11/20/2017 14:24 [place] COMPARISON: No previous studies available for comparison. INDICATIONS : Left foot pain, no injury. MEDICAL HISTORY : None. SURGICAL HISTORY : None. ENCOUNTER: Initial ACUITY: 1 day PAIN SCORE: 8/10 LOCATION: Left plantar surface of foot. FINDINGS: Three view examination of the left foot demonstrates no soft tissue swelling, dislocation, or fractur e. The tarsal bones appear intact. The interphalangeal and metatarsophalangeal joints are intact. The calcaneus is intact. Bony mineralization is normal. CONCLUSION: Negative examination. Fabricio Vora MD on November 20, 2017 at 14:35 Board Certified Radiologist. This report was verified electronically.
[2017-11-20] MEDS ORDERED: BACT800T5 PO (15:16)
--- NOTE | 2017-11-20 15:29 | PD ---
HPI Chief Complaint: Pain: Acute or Chronic Time Seen by Provider: 15:24 Travel History International Travel<30 days: No Contact w/Intl Traveler<30days: No Traveled to known affect area: No History of Present Illness HPI 37-year-old female presents to the emergency department with complaint of left heel pain since yesterday. Denies injury. Is ambulatory on the affected extremity. Denies paresthesias, loss of sensation, decreased range of motion, decreased strength to the affected extremity. Pain fluctuates in intensity. Rates pain 9/10 with pressure and walking. Better at rest. Has taken Tylenol for symptom management. Primary care provider is Dr. Hamlin. History of CVA and is on Coumadin. History of seizures and takes Keppra. Denies other significant past medical history. No known allergies. Has no other medical complaints. No other modifying factors or associated signs and symptoms. PFSH Past Medical History Hx Anticoagulant Therapy: Yes (COUMADIN) Anemia: Yes Blood Disorders: No Anxiety: Yes Depression: Yes Cancer: No Cardiovascular Problems: Yes (HBP) Cerebrovascular Accident: Yes Diminished Hearing: No Endocrine: No Genitourinary: Yes (hydronephrosis) Hypertension: Yes Immune Disorder: No Implanted Vascular Access Dvce: No Musculoskeletal: No Neurologic: Yes (hx of stroke x 2) Psychiatric: Yes Reproductive: Yes (ABNORMAL INTRAUTERINE BLEEDING) Respiratory: No Immunizations Current: No Seizures: Yes : 1 Para: 1 Past Surgical History Section: Yes Gynecologic Surgery: Yes (d & c) Hysterectomy: Yes Other Surgery: Yes (D&C) Social History Alcohol Use: Yes (OCASSIONALLY) Tobacco Use: Yes (1/2 ppd) Substance Use: Yes (weed) Allergies-Medications (Allergen,Severity, Reaction): Coded Allergies: No Known Allergies (Verified Allergy, Unknown, 10/08/17) Reported Meds & Prescriptions Reported Meds & Active Scripts Active Coumadin (Warfarin) 10 Mg Tab 10 Mg PO DAILY Reported Bactrim DS (Sulfamethoxazole-Trimethoprim) 800-160 Mg Tab 1 Tab PO BID Keppra (Levetiracetam) 250 Mg Tab 250 Mg PO DAILY Review of Systems Except as stated in HPI: all other systems reviewed are Neg Physical Exam Narrative GENERAL: Well-nourished, well-developed black patient, in no acute distress SKIN: Warm and dry. HEAD: Atraumatic. Normocephalic. EYES: Pupils equal and round. No scleral icterus. No injection or drainage. ENT: Mucosa pink and moist. Airway patent. NECK: Trachea midline. CARDIOVASCULAR: Regular rate. RESPIRATORY: No accessory muscle use. GASTROINTESTINAL: Obese. MUSCULOSKELETAL: Left heel with tenderness on palpation to the lateral and medial aspect; without erythema, edema, ecchymosis; no obvious deformity; 2+ pedal pulse and sensory intact; no reproducible tenderness on palpation to the arch or metatarsal region of the foot. Left lower extremity is supple and nontender and without erythema or edema. No obvious deformities. No clubbing. No cyanosis. No edema. NEUROLOGICAL: Awake and alert. Oriented 3. No obvious cranial nerve deficits. Motor grossly within normal limits. Normal speech. PSYCHIATRIC: Appropriate mood and affect; insight and judgment normal. Data Data Last Documented VS Vital Signs Date Time Temp Pulse Resp B/P (MAP) Pulse Ox O2 Delivery O2 Flow Rate FiO2 11/20/17 14:11 98.5 69 14 126/79 (95) 99 Orders Orders Foot, Complete ([id number]) (11/20/17 ) Ed Discharge Order (11/20/17 15:35) MDM Medical Decision Making Medical Screen Exam Complete: Yes Emergency Medical Condition: Yes Medical Record Reviewed: Yes Differential Diagnosis Heel spur, plantar fasciitis, stress fracture, foot pain Narrative Course 37-year-old female with left foot pain. Denies injury. Left foot x-ray ordered in triage and concludes no acute findings. I offered the patient crutches for support and she declined. I offered the patient Tylenol for pain and she declined. Instructed patient to follow-up with podiatry if symptoms persist. Instructed patient to follow up with primary care provider. Patient verbalizes understanding and agreement with treatment plan. Patient is medically cleared and stable for discharge. Discussed reasons to return to the emergency department. Patient agrees with treatment plan. The patients vital signs are stable and the patient is stable for outpatient follow-up and treatment. Patient discharged home, stable and in no acute distress. Diagnosis Primary Impression: Foot pain, left Referrals: Muck Farmer Primary Care Physician Patient Instructions: General Instructions Departure Forms: Tests/Procedures, Work Release Enter return to work date: Nov 21, 2017 Additional Instructions: Tylenol as directed and as needed for pain Avoid the use of flat shoes and barefoot walking Use heel shoe inserts or arch supports and/or heel cups as needed Decrease physical activity that causes aggravation of pain Follow-up with podiatry Follow-up with primary care Return to the emergency department immediately with worsening of symptoms Med/Other Pt SpecificInfo: No Change to Meds, No Meds Exist/No RX given Disposition: 01 DISCHARGE HOME Condition: Stable Janette Long Nov 20, 2017 15:29
== END 2017-11-20 15:50 | disposition home or self-care (01) ==
LOC: NEPK 13:49
DX: M79.672 Pain in left foot (principal); F32.9 Major depressive disorder, single episode, unspecified; F41.9 Anxiety disorder, unspecified; I10 Essential (primary) hypertension; F17.200 Nicotine dependence, unspecified, uncomplicated; F12.90 Cannabis use, unspecified, uncomplicated; Z86.73 Personal history of transient ischemic attack (TIA), and cerebral infarction without residual deficits
CPT/HCPCS: 73630; 99283

== ENCOUNTER 2017-12-06 22:39 | Emergency (ER) | payer OTHER ==
[~2017-12-06] VITALS: Ht 160 cm; Wt 110.4 kg
[~2017-12-06 22:39] MED LIST changes: +BACT800T5 PO; -CLIN300C5 PO; -DEXA4TAB PO; -IBUP-232 PO
[2017-12-06 22:56] VITALS: BP 166/92; PULSE 90; RESP 16; TEMP 98.7; O2SAT 100
[2017-12-07 00:14] LABS: BICARBONATE 27.5 MEQ/L (21.0-32.0); CALCIUM 8.8 MG/DL (8.5-10.1); CREATININE 0.77 MG/DL (0.50-1.00)
[2017-12-07 00:20] LABS: BACTERIA, URINE RARE /hpf; BILIRUBIN, URINE NEG (NEG); BLOOD, URINE MOD (NEG); GLUCOSE,URINE NEG (NEG); KETONE, URINE NEG (NEG); NITRITE,URINE NEG (NEG); PH, URINE 6.5 (5.0-8.5); SQUAMOUS EPITHELIAL CELL URINE 20 /hpf (0-5); URINE COLOR LIGHT-YELLOW (YELLW/STRAW); URINE LEUKOCYTE ESTERASE MOD (NEG)
[2017-12-07] MEDS ORDERED: MACR100C2 PO (00:51)
[2017-12-07] MEDS ORDERED: PENI500T PO (00:51)
--- NOTE | 2017-12-07 01:14 | PD ---
HPI Chief Complaint: Edema Time Seen by Provider: 23:17 Travel History International Travel<30 days: No Contact w/Intl Traveler<30days: No Traveled to known affect area: No History of Present Illness HPI This is a 37-year-old female with a history of CVAs, who is currently on Coumadin, presented today with complaints of left-sided jaw swelling and dysuria. Patient also reports swelling to her feet. The patient denies any fevers, chills. She denies any recent dental work. She does report that she was scheduled to have dental work in real left-sided molars however never followed up. There is no difficulty swallowing. She reports that she was treated for UTI with antibiotics however is noted she still having dysuria despite the antibiotics being completed. She is unsure which antibiotic she was taking. The patient reports standing on her feet a lot and when she is at work, she noticed the swelling in her legs. She states the swelling does go down when she is not on her feet. PFSH Past Medical History Hx Anticoagulant Therapy: Yes (COUMADIN) Anemia: Yes Blood Disorders: No Anxiety: Yes Depression: Yes Cancer: No Cardiovascular Problems: Yes (HBP) Cerebrovascular Accident: Yes Diminished Hearing: No Endocrine: No Genitourinary: Yes (hydronephrosis) Hypertension: Yes Immune Disorder: No Implanted Vascular Access Dvce: No Musculoskeletal: No Neurologic: Yes (hx of stroke x 2) Psychiatric: Yes Reproductive: Yes (ABNORMAL INTRAUTERINE BLEEDING) Respiratory: No Immunizations Current: No Seizures: Yes Influenza Vaccination: No ?: Not LMP: HYSTERECTOMY : 1 Para: 1 Past Surgical History Section: Yes (X1) Gynecologic Surgery: Yes (d & c) Hysterectomy: Yes Other Surgery: Yes (D&C) Social History Alcohol Use: Yes (OCASSIONALLY) Tobacco Use: Yes (1/2 ppd) Substance Use: Yes (weed) Allergies-Medications (Allergen,Severity, Reaction): Coded Allergies: No Known Allergies (Verified Allergy, Unknown, 12/06/17) Reported Meds & Prescriptions Reported Meds & Active Scripts Active Macrobid (Nitrofurantoin Monohydrate Macrocrystals) 100 Mg Capsule 100 Mg PO BID 5 Days Penicillin V Potassium 500 Mg Tab 500 Mg PO Q6H 7 Days Coumadin (Warfarin) 10 Mg Tab 10 Mg PO DAILY Reported Keppra (Levetiracetam) 250 Mg Tab 250 Mg PO DAILY Review of Systems Except as stated in HPI: all other systems reviewed are Neg General / Constitutional: No: Fever, Chills HENT: Positive: Other (Left-sided lower jaw/cheek swelling), No: Headaches, Neck Pain Cardiovascular: No: Chest Pain or Discomfort, Palpitations Respiratory: No: Cough, Shortness of Breath Gastrointestinal: No: Nausea, Vomiting, Abdominal Pain Genitourinary: Positive: Frequency, Dysuria Musculoskeletal: No: Weakness, Pain Neurologic: No: Weakness, Dizziness, Headache Physical Exam Narrative GENERAL: Well-developed well-nourished female in no obvious respiratory distress. SKIN: Focused skin assessment warm/dry. HEAD: Atraumatic. Normocephalic. EYES: Pupils equal and round. No scleral icterus. No injection or drainage. ENT: No nasal bleeding or discharge. Mucous membranes pink and moist. Patient does have slight swelling noted in her left lower mandibular area. There is mild tenderness to touch on her lower posterior molar area on the external cheek. On examination of the oropharynx, uvula was midline. There was poor dentition noted in her lower molars in the left lower jaw. There is no drainage or abscess noted. NECK: Trachea midline. No JVD. CARDIOVASCULAR: Regular rate and rhythm. No murmur appreciated. RESPIRATORY: No accessory muscle use. Clear to auscultation. Breath sounds equal bilaterally. GASTROINTESTINAL: Abdomen soft, non-tender, nondistended. Hepatic and splenic margins not palpable. MUSCULOSKELETAL: No obvious deformities. No clubbing. No cyanosis. Trace edema noted in the feet. No palpable cords in her popliteal area. Calves were nontender. NEUROLOGICAL: Awake and alert. No obvious cranial nerve deficits. Motor grossly within normal limits. Normal speech. PSYCHIATRIC: Appropriate mood and affect; insight and judgment normal. Data Data Last Documented VS Vital Signs Date Time Temp Pulse Resp B/P (MAP) Pulse Ox O2 Delivery O2 Flow Rate FiO2 12/06/17 22:56 98.7 90 16 166/92 (116) 100 Orders Orders Basic Metabolic Panel (Bmp) (12/06/17 23:17) Urinalysis - C+S If Indicated (12/06/17 23:17) Labs Laboratory Tests Test 12/06/17 23:30 Urine Color LIGHT-YELLOW Urine Turbidity HAZY Urine pH 6.5 Urine Specific [place] 1.015 Urine Protein NEG mg/dL Urine Glucose (UA) NEG mg/dL Urine Ketones NEG mg/dL Urine Occult Blood MOD Urine Nitrite NEG Urine Bilirubin NEG Urine Urobilinogen LESS THAN 2.0 MG/DL Urine Leukocyte Esterase MOD Urine RBC 8 /hpf Urine WBC 5 /hpf Urine Squamous Epithelial Cells 20 /hpf Urine Bacteria RARE /hpf Microscopic Urinalysis Comment CULT NOT INDICATED Blood Urea Nitrogen 8 MG/DL Creatinine 0.77 MG/DL Random Glucose 87 MG/DL Calcium Level 8.8 MG/DL Sodium Level 139 MEQ/L Potassium Level 4.3 MEQ/L Chloride Level 105 MEQ/L Carbon Dioxide Level 27.5 MEQ/L Anion Gap 7 MEQ/L Estimat Glomerular Filtration Rate 101 ML/MIN MDM Medical Decision Making Medical Screen Exam Complete: Yes Emergency Medical Condition: Yes Differential Diagnosis UTI versus dental abscess versus dependent edema Narrative Course 37-year-old female presents with left lower jaw swelling, dysuria, foot swelling. Patient has what appears to be dependent edema. She is instructed to use support hose while up and active. The patient does have poor dentition noted in her left lower molars on the posterior side. There is no obvious draining abscess or fluctuance noted. She will be treated with Pen-Vee K 500 mg 4 times daily 7 days. She is encouraged to follow-up with a dentist. Patient will also be given Macrobid for her urinary tract infection that is still present. Diagnosis Primary Impression: Left lower facial swelling, suspect dental source. Additional Impressions: Persistent UTI Bilateral lower extremity dependent edema. Additional Instructions: You will need to follow-up with a dentist. Return if feeling worse. Where support stockings for edema while working. Keep legs elevated when not ambulatory. Med/Other Pt SpecificInfo: Prescription(s) given Scripts Nitrofurantoin Monohydrate Macrocrystals (Macrobid) 100 Mg Capsule 100 MG PO BID for Infection for 5 Days, #10 CAP 0 Refills Prov: Nishant Sosa MD 12/07/17 Penicillin V Potassium (Penicillin V Potassium) 500 Mg Tab 500 MG PO Q6H for Infection for 7 Days, #28 TAB 0 Refills Prov: Nishant Sosa MD 12/07/17 Disposition: 01 DISCHARGE HOME Condition: Stable Nishant Sosa MD Dec 07, 2017 01:14
== END 2017-12-07 02:27 | disposition home or self-care (01) ==
LOC: NEPE 22:39
DX: R22.0 Localized swelling, mass and lump, head (principal); N39.0 Urinary tract infection, site not specified; R60.0 Localized edema; I10 Essential (primary) hypertension; G40.909 Epilepsy, unspecified, not intractable, without status epilepticus; F17.200 Nicotine dependence, unspecified, uncomplicated; Z79.01 Long term (current) use of anticoagulants; Z86.73 Personal history of transient ischemic attack (TIA), and cerebral infarction without residual deficits; Z87.448 Personal history of other diseases of urinary system; Z86.69 Personal history of other diseases of the nervous system and sense organs; Z87.42 Personal history of other diseases of the female genital tract; Z86.59 Personal history of other mental and behavioral disorders
CPT/HCPCS: 80048; 81001; 99283